=== PATIENT | female | born 1950 | race Caucasian/White ===

== ENCOUNTER 2016-03-02 | Outpatient (CLI) | END 2016-03-02 15:46 | disposition critical access hospital (66) | CPT/HCPCS: A0425; A0429 ==

== ENCOUNTER 2016-03-02 15:49 | Inpatient (IN) | payer MEDICARE, MEDICAID ==
[2016-03-02] MEDS ORDERED: IOPAMIDOL-300 100 ML VIAL IVP ONE (17:58)
[2016-03-02] MEDS ORDERED: VANCOMYCIN INJ 1 GM in SODIUM CHLORIDE 0.9% 250 ML IV STA (18:17)
[2016-03-02] MEDS ORDERED: PIPERACILLIN/TAZOBACTAM 4.5 GM in SODIUM CHLORIDE 0.9% MINIBAG 100 ML IV STA (18:17)
[2016-03-02] MEDS ORDERED: SODIUM CHLORIDE 0.9% 250 ML IV ONE (19:25)
[2016-03-02] MEDS ORDERED: VANCOMYCIN 1 GM VIAL ONE (19:25)
[2016-03-02] MEDS ORDERED: hydrOXYzine PAMOATE 25 MG CAPSULE PO PRN (20:52)
[2016-03-02] MEDS ORDERED: SODIUM CHLORIDE 0.9% 1,000 ML IV SCH ×2 (20:52→23:07)
[2016-03-02] MEDS ORDERED: FUROSEMIDE 20 MG TABLET PO PRN (20:52)
[2016-03-02] MEDS ORDERED: ONDANSETRON 4 MG/2 ML VIAL IVP PRN (20:52)
[2016-03-02] MEDS ORDERED: risperiDONE 1 MG/ML SOLUTION PO SCH (21:00)
[2016-03-02] MEDS ORDERED: DABIGATRAN 75 MG CAPSULE PO SCH (21:00)
[2016-03-02] MEDS: PANTOPRAZOLE 40 MG TABLET PO SCH (21:49)
[2016-03-02] MEDS: traMADol 50 MG TABLET PO PRN (21:50)
[2016-03-02] MEDS: MIRTAZAPINE 15 MG TABLET PO SCH ×2 (21:51→23:47)
[2016-03-02] MEDS ORDERED: BENZONATATE 100 MG CAPSULE PO PRN (21:52)
[2016-03-02] MEDS: FAMOTIDINE 20 MG TABLET PO SCH (21:52)
[2016-03-02] MEDS ORDERED: guaiFENesin/DEXTROMETHORPHAN 10 ML UDC PO PRN (21:52)
[2016-03-02] MEDS ORDERED: LEVALBUTEROL 1.25 MG INH PRN (21:52)
[2016-03-02] MEDS ORDERED: PIPERACILLIN/TAZOBACTAM 4.5 GM in SODIUM CHLORIDE 0.9% MINIBAG 100 ML IV SCH (22:00)
[2016-03-02] MEDS: SODIUM CHLORIDE FLUSH 0.9% 10 ML SYRINGE IVP SCH (23:46)
[2016-03-03] MEDS: RIVAROXABAN 15 MG TABLET PO SCH ×2 (00:08→17:26)
[2016-03-03] MEDS: risperiDONE 1 MG TABLET PO SCH ×2 (01:28→20:17)
[2016-03-03] MEDS: PIPERACILLIN/TAZOBACTAM 4.5 GM in SODIUM CHLORIDE 0.9% MINIBAG 100 ML IV SCH ×3 (03:33→19:18)
[2016-03-03] MEDS: SODIUM CHLORIDE FLUSH 0.9% 10 ML SYRINGE IVP SCH ×3 (05:39→22:42)
[2016-03-03] MEDS: traMADol 50 MG TABLET PO PRN ×2 (05:42→13:16)
[2016-03-03] MEDS: METOPROLOL SUCCINATE 25 MG TABLET PO SCH (08:29)
[2016-03-03] MEDS: PANTOPRAZOLE 40 MG TABLET PO SCH ×2 (08:29→20:17)
[2016-03-03] MEDS: FAMOTIDINE 20 MG TABLET PO SCH (08:29)
[2016-03-03] MEDS: SACCHAROMYCES BOULARDII 250 MG CAPSULE PO SCH ×2 (08:29→17:26)
[2016-03-03] MEDS: POLYETHYLENE GLYCOL 3350 17 GM PACKET PO SCH (08:31)
[2016-03-03] MEDS: DULoxetine 30 MG CAPSULE PO SCH (08:31)
[2016-03-03] MEDS: FORMOTEROL FUMARATE NEB 20 MCG/2 ML INH SCH ×2 (09:03→17:22)
[2016-03-03] MEDS: IPRATROPIUM/ALBUTEROL 3 ML NEB INH PRN ×2 (09:03→17:22)
[2016-03-03] MEDS: BUDESONIDE 0.5 MG/2 ML NEB INH SCH ×2 (09:04→17:22)
[2016-03-03] MEDS ORDERED: VANCOMYCIN PER PHARMACY 1 GM in SODIUM CHLORIDE 0.9% 250 ML IV SCH (19:00)
[2016-03-03] MEDS: VANCOMYCIN INJ 1 GM in SODIUM CHLORIDE 0.9% 250 ML IV SCH (19:14)
[2016-03-03] MEDS: SODIUM CHLORIDE FLUSH 0.9% 10 ML SYRINGE IVP PRN (19:17)
[2016-03-03] MEDS ORDERED: MIN OIL/DIMETHICON/COCONUT OIL 92 GM TUBE TOP PRN (20:14)
[2016-03-03] MEDS: MIRTAZAPINE 15 MG TABLET PO SCH (20:17)
[2016-03-04] MEDS: SODIUM CHLORIDE FLUSH 0.9% 10 ML SYRINGE IVP PRN ×2 (03:03→10:15)
[2016-03-04] MEDS: PIPERACILLIN/TAZOBACTAM 4.5 GM in SODIUM CHLORIDE 0.9% MINIBAG 100 ML IV SCH ×3 (03:03→18:56)
[2016-03-04] MEDS: SODIUM CHLORIDE FLUSH 0.9% 10 ML SYRINGE IVP SCH ×3 (08:13→23:03)
[2016-03-04] MEDS: SACCHAROMYCES BOULARDII 250 MG CAPSULE PO SCH ×2 (08:18→18:42)
[2016-03-04] MEDS: FAMOTIDINE 20 MG TABLET PO SCH (08:18)
[2016-03-04] MEDS: DULoxetine 30 MG CAPSULE PO SCH (08:18)
[2016-03-04] MEDS: traMADol 50 MG TABLET PO PRN ×3 (08:19→20:21)
[2016-03-04] MEDS: PANTOPRAZOLE 40 MG TABLET PO SCH ×2 (08:19→20:21)
[2016-03-04] MEDS: POLYETHYLENE GLYCOL 3350 17 GM PACKET PO SCH (08:20)
[2016-03-04] MEDS: METOPROLOL SUCCINATE 25 MG TABLET PO SCH (08:20)
[2016-03-04] MEDS: IPRATROPIUM/ALBUTEROL 3 ML NEB INH PRN (09:30)
[2016-03-04] MEDS: BUDESONIDE 0.5 MG/2 ML NEB INH SCH ×2 (09:30→13:45)
[2016-03-04] MEDS ORDERED: clonazePAM 0.5 MG TABLET PO PRN (09:59)
[2016-03-04] MEDS: HYDROXYUREA 500 MG CAPSULE PO SCH (10:10)
[2016-03-04] MEDS: clonazePAM 0.5 MG TABLET PO PRN ×2 (10:11→20:22)
[2016-03-04] MEDS: FORMOTEROL FUMARATE NEB 20 MCG/2 ML INH SCH ×2 (13:45→20:45)
[2016-03-04] MEDS: VANCOMYCIN INJ 1 GM in SODIUM CHLORIDE 0.9% 250 ML IV SCH (18:42)
[2016-03-04] MEDS: RIVAROXABAN 15 MG TABLET PO SCH (18:43)
[2016-03-04] MEDS: risperiDONE 1 MG TABLET PO SCH (20:21)
[2016-03-04] MEDS: MIRTAZAPINE 15 MG TABLET PO SCH (20:21)
[2016-03-05] MEDS: PIPERACILLIN/TAZOBACTAM 4.5 GM in SODIUM CHLORIDE 0.9% MINIBAG 100 ML IV SCH ×3 (03:18→22:19)
[2016-03-05] MEDS: SODIUM CHLORIDE FLUSH 0.9% 10 ML SYRINGE IVP SCH ×3 (05:48→20:35)
[2016-03-05] MEDS: IPRATROPIUM/ALBUTEROL 3 ML NEB INH PRN ×3 (07:15→15:20)
[2016-03-05] MEDS: FORMOTEROL FUMARATE NEB 20 MCG/2 ML INH SCH ×2 (07:15→19:55)
[2016-03-05] MEDS: BUDESONIDE 0.5 MG/2 ML NEB INH SCH ×2 (07:15→19:55)
[2016-03-05] MEDS: PANTOPRAZOLE 40 MG TABLET PO SCH ×2 (08:47→20:30)
[2016-03-05] MEDS: HYDROXYUREA 500 MG CAPSULE PO SCH (08:47)
[2016-03-05] MEDS: traMADol 50 MG TABLET PO PRN ×4 (08:47→21:18)
[2016-03-05] MEDS: SACCHAROMYCES BOULARDII 250 MG CAPSULE PO SCH ×2 (08:47→16:24)
[2016-03-05] MEDS: POLYETHYLENE GLYCOL 3350 17 GM PACKET PO SCH (08:47)
[2016-03-05] MEDS: FAMOTIDINE 20 MG TABLET PO SCH (08:47)
[2016-03-05] MEDS: DULoxetine 30 MG CAPSULE PO SCH (08:48)
[2016-03-05] MEDS: METOPROLOL SUCCINATE 25 MG TABLET PO SCH (08:48)
[2016-03-05] MEDS: clonazePAM 0.5 MG TABLET PO PRN ×2 (08:58→18:12)
[2016-03-05] MEDS: SODIUM CHLORIDE FLUSH 0.9% 10 ML SYRINGE IVP PRN (10:31)
[2016-03-05] MEDS: ACETAMINOPHEN 325 MG TABLET PO PRN ×2 (11:34→19:54)
[2016-03-05] MEDS: RIVAROXABAN 15 MG TABLET PO SCH (16:24)
[2016-03-05] MEDS ORDERED: VANCOMYCIN 1 GM VIAL ONE (20:15)
[2016-03-05] MEDS ORDERED: SODIUM CHLORIDE 0.9% 250 ML IV ONE (20:16)
[2016-03-05] MEDS: VANCOMYCIN INJ 1 GM in SODIUM CHLORIDE 0.9% 250 ML IV SCH (20:22)
[2016-03-05] MEDS: MIRTAZAPINE 15 MG TABLET PO SCH (20:30)
[2016-03-05] MEDS: risperiDONE 1 MG TABLET PO SCH (20:30)
[2016-03-06] MEDS: PIPERACILLIN/TAZOBACTAM 4.5 GM in SODIUM CHLORIDE 0.9% MINIBAG 100 ML IV SCH (05:59)
[2016-03-06] MEDS: SODIUM CHLORIDE FLUSH 0.9% 10 ML SYRINGE IVP SCH (05:59)
[2016-03-06] MEDS: VANCOMYCIN INJ 1 GM in SODIUM CHLORIDE 0.9% 250 ML IV SCH (09:00)
[2016-03-06] MEDS: POLYETHYLENE GLYCOL 3350 17 GM PACKET PO SCH (09:00)
[2016-03-06] MEDS: SACCHAROMYCES BOULARDII 250 MG CAPSULE PO SCH (09:01)
[2016-03-06] MEDS: DULoxetine 30 MG CAPSULE PO SCH (09:01)
[2016-03-06] MEDS: FAMOTIDINE 20 MG TABLET PO SCH (09:01)
[2016-03-06] MEDS: PANTOPRAZOLE 40 MG TABLET PO SCH (09:01)
[2016-03-06] MEDS: HYDROXYUREA 500 MG CAPSULE PO SCH (09:01)
[2016-03-06] MEDS: METOPROLOL SUCCINATE 25 MG TABLET PO SCH (09:01)
[2016-03-06] MEDS: clonazePAM 0.5 MG TABLET PO PRN ×2 (09:05→10:35)
[2016-03-06] MEDS: traMADol 50 MG TABLET PO PRN ×2 (09:05→09:50)
[2016-03-06] MEDS: BUDESONIDE 0.5 MG/2 ML NEB INH SCH (09:15)
[2016-03-06] MEDS: IPRATROPIUM/ALBUTEROL 3 ML NEB INH PRN (09:15)
[2016-03-06] MEDS: FORMOTEROL FUMARATE NEB 20 MCG/2 ML INH SCH (09:15)
[2016-03-06] MEDS ORDERED: PIPERACILLIN/TAZOBACTAM 4.5 GM in SODIUM CHLORIDE 0.9% MINIBAG 100 ML IV SCH (12:00)
== END 2016-03-06 13:33 | disposition home health service (06) | DRG 193 ==
DX: J18.9 Pneumonia, unspecified organism (principal); N39.0 Urinary tract infection, site not specified; R09.02 Hypoxemia; J96.21 Acute and chronic respiratory failure with hypoxia; I27.82 Chronic pulmonary embolism; D68.59 Other primary thrombophilia; F32.9 Major depressive disorder, single episode, unspecified; Y95 Nosocomial condition; Z91.14 Patient's other noncompliance with medication regimen; D47.3 Essential (hemorrhagic) thrombocythemia; D50.9 Iron deficiency anemia, unspecified; I12.9 Hypertensive chronic kidney disease with stage 1 through stage 4 chronic kidney disease, or unspecified chronic kidney disease; N18.3 Chronic kidney disease, stage 3 (moderate); J44.9 Chronic obstructive pulmonary disease, unspecified; K21.9 Gastro-esophageal reflux disease without esophagitis; F31.9 Bipolar disorder, unspecified; F41.9 Anxiety disorder, unspecified; Z86.718 Personal history of other venous thrombosis and embolism; Z79.01 Long term (current) use of anticoagulants; Z99.81 Dependence on supplemental oxygen; Z86.73 Personal history of transient ischemic attack (TIA), and cerebral infarction without residual deficits; Z87.891 Personal history of nicotine dependence

== ENCOUNTER 2016-04-09 17:58 | Emergency (ER) | payer MEDICARE, MEDICAID ==
[2016-04-09] MEDS ORDERED: traMADol 50 MG TABLET PO STA (18:10)
[2016-04-09] MEDS ORDERED: traMADol 50 MG TABLET PO ONE (18:21)
== END 2016-04-09 21:18 | disposition home or self-care (01) ==
DX: I82.5Y3 Chronic embolism and thrombosis of unspecified deep veins of proximal lower extremity, bilateral (principal); Z86.718 Personal history of other venous thrombosis and embolism; Z86.711 Personal history of pulmonary embolism
CPT/HCPCS: 36415; 80053; 83690; 85025; 93970; 99283; 99284; A9270

== ENCOUNTER 2016-04-27 | Emergency (ER) | payer MEDICARE, MEDICAID | END 2016-04-27 12:47 | disposition home or self-care (01) ==

== ENCOUNTER 2016-06-14 10:31 | Inpatient (IN) | payer MEDICARE, MEDICAID ==
[2016-06-14] MEDS ORDERED: IPRATROPIUM/ALBUTEROL 3 ML NEB INH STA (12:15)
[2016-06-14] MEDS ORDERED: predniSONE 20 MG TABLET PO STA (12:16)
[2016-06-14] MEDS ORDERED: IPRATROPIUM/ALBUTEROL 3 ML NEB INH ONE (12:23)
[2016-06-14] MEDS ORDERED: predniSONE 20 MG TABLET ONE (13:08)
[2016-06-14] MEDS ORDERED: ASPIRIN CHEW 81 MG TABLET PO STA (13:10)
[2016-06-14] MEDS ORDERED: ASPIRIN CHEW 81 MG TABLET ONE (13:11)
[2016-06-14] MEDS ORDERED: SODIUM CHLORIDE FLUSH 0.9% 10 ML SYRINGE IVP PRN (15:17)
[2016-06-14] MEDS ORDERED: IPRATROPIUM/ALBUTEROL 3 ML NEB INH PRN (15:25)
[2016-06-14] MEDS ORDERED: AZITHROMYCIN 250 MG TABLET PO ONE (17:00)
[2016-06-14] MEDS: ALPRAZolam 0.25 MG TABLET PO PRN ×2 (17:08→21:06)
[2016-06-14] MEDS: SODIUM CHLORIDE 0.9% 1,000 ML IV SCH (17:08)
[2016-06-14] MEDS: traMADol 50 MG TABLET PO PRN ×2 (17:08→21:06)
[2016-06-14] MEDS: busPIRone 5 MG TABLET PO SCH (20:07)
[2016-06-14] MEDS: IPRATROPIUM/ALBUTEROL 3 ML NEB INH SCH ×2 (20:10→22:40)
[2016-06-14] MEDS: BUDESONIDE 0.5 MG/2 ML NEB INH SCH (20:10)
[2016-06-14] MEDS ORDERED: MIRTAZAPINE 15 MG TABLET PO SCH (21:00)
[2016-06-14] MEDS ORDERED: risperiDONE 0.25 MG TABLET PO SCH (21:00)
[2016-06-14] MEDS: SUCRALFATE 1 GM/10 ML UDC PO SCH (21:06)
[2016-06-14] MEDS: SODIUM CHLORIDE FLUSH 0.9% 10 ML SYRINGE IVP SCH (21:10)
[2016-06-15] MEDS: IPRATROPIUM/ALBUTEROL 3 ML NEB INH SCH ×2 (04:50→10:11)
[2016-06-15] MEDS: ALPRAZolam 0.25 MG TABLET PO PRN (05:04)
[2016-06-15] MEDS: traMADol 50 MG TABLET PO PRN ×3 (05:04→17:20)
[2016-06-15] MEDS: SUCRALFATE 1 GM/10 ML UDC PO SCH ×3 (06:14→15:47)
[2016-06-15] MEDS: SODIUM CHLORIDE FLUSH 0.9% 10 ML SYRINGE IVP SCH ×2 (06:16→14:30)
[2016-06-15] MEDS: SODIUM CHLORIDE 0.9% 1,000 ML IV SCH (06:35)
[2016-06-15] MEDS ORDERED: SODIUM CHLORIDE 0.9% 1,000 ML IV SCH (08:00)
[2016-06-15] MEDS: busPIRone 5 MG TABLET PO SCH (08:56)
[2016-06-15] MEDS ORDERED: RIVAROXABAN 10 MG TABLET PO SCH (09:00)
[2016-06-15] MEDS ORDERED: HYDROXYUREA 500 MG CAPSULE PO SCH (09:00)
[2016-06-15] MEDS ORDERED: METOPROLOL SUCCINATE 25 MG TABLET PO SCH (09:00)
[2016-06-15] MEDS ORDERED: POLYETHYLENE GLYCOL 3350 17 GM PACKET PO SCH (09:00)
[2016-06-15] MEDS ORDERED: DULoxetine 30 MG CAPSULE PO SCH (09:00)
[2016-06-15] MEDS: clonazePAM 0.5 MG TABLET PO PRN ×2 (09:22→15:46)
[2016-06-15] MEDS: BUDESONIDE 0.5 MG/2 ML NEB INH SCH (10:10)
[2016-06-15] MEDS ORDERED: AZITHROMYCIN 250 MG TABLET PO SCH (16:46)
== END 2016-06-15 17:35 | disposition home or self-care (01) | DRG 192 ==
DX: J44.1 Chronic obstructive pulmonary disease with (acute) exacerbation (principal); R07.9 Chest pain, unspecified; R06.02 Shortness of breath; R06.2 Wheezing; R94.31 Abnormal electrocardiogram [ECG] [EKG]; J44.9 Chronic obstructive pulmonary disease, unspecified; I10 Essential (primary) hypertension; E78.5 Hyperlipidemia, unspecified; R07.89 Other chest pain; Z87.01 Personal history of pneumonia (recurrent); D47.3 Essential (hemorrhagic) thrombocythemia; F41.9 Anxiety disorder, unspecified; I12.9 Hypertensive chronic kidney disease with stage 1 through stage 4 chronic kidney disease, or unspecified chronic kidney disease; N18.3 Chronic kidney disease, stage 3 (moderate); G89.29 Other chronic pain; I27.2 Other secondary pulmonary hypertension; F31.9 Bipolar disorder, unspecified; K21.9 Gastro-esophageal reflux disease without esophagitis; Z87.891 Personal history of nicotine dependence; Z86.718 Personal history of other venous thrombosis and embolism; Z79.01 Long term (current) use of anticoagulants; Z86.711 Personal history of pulmonary embolism; Z86.73 Personal history of transient ischemic attack (TIA), and cerebral infarction without residual deficits; Z79.899 Other long term (current) drug therapy; Z98.1 Arthrodesis status; Z79.891 Long term (current) use of opiate analgesic

== ENCOUNTER 2016-07-19 11:19 | Emergency (ER) | payer MEDICARE, MEDICAID ==
[2016-07-19] MEDS ORDERED: PHENAZOPYRIDINE 100 MG TABLET PO STA (12:54)
[2016-07-19] MEDS ORDERED: PHENAZOPYRIDINE 100 MG TABLET PO ONE (12:56)
--- NOTE | 2016-07-19 12:56 | ED Physician Documentation ---
History of Present Illness - Stated complaint Stated Complaint: FEMALE - Chief complaint Chief Complaint: General - History obtained from History obtained from: Patient - History of Present Illness Timing: Other (One week worth of urinary frequency, today more acutely with suprapubic and vaginal pain, but no flank pain, fevers or nausea.) Review of Systems Constitutional: denies: Fever, Chills Cardiac: denies: Chest pain / pressure, Palpitations Respiratory: denies: Dyspnea, Cough GI: denies: Abdominal Pain, Nausea, Diarrhea PD PAST MEDICAL HISTORY - Past Medical History Cardiovascular: Deep vein thrombosis, Pulmonary embolism Respiratory: Pneumonia, Shortness of breath, Other Neuro: Headache/migraine, Peripheral neuropathy, Other Endocrine/Autoimmune: None GI: GERD DIRECTOR ORACLE RETAIL: None : None HEENT: None Psych: Depression, Anxiety Musculoskeletal: Scoliosis Derm: None Other Past Medical History: Has a thromocythemia - Past Surgical History Past Surgical History: Yes Ortho: Spine surgery /DIRECTOR ORACLE RETAIL: section, Hysterectomy - Present Medications Home Medications: Ambulatory Orders Medication Instructions Recorded Confirmed Clonazepam [Klonopin] 0.5 - 1 mg PO BID PRN 10/01/12 07/04/16 Mirtazapine [Remeron] 15 mg PO QPM 05/19/14 07/04/16 traMADol [Ultram] 50 mg PO QID PRN 08/17/15 07/04/16 Omeprazole 20 mg BID 12/30/15 07/04/16 Metoprolol Succinate 25 mg PO DAILY 01/13/16 07/04/16 Albuterol Sulf [Ventolin Hfa 2 puffs INH Q4H PRN 03/03/16 07/04/16 Inhaler] Budesonide/Formoterol Fumarate 1 puffs INH BID PRN 03/03/16 07/04/16 [Symbicort 160-4.5 Mcg Inhaler] DULoxetine [Cymbalta] 30 mg PO DAILY 03/03/16 07/04/16 Hydroxyurea 500 mg PO DAILY 03/03/16 07/04/16 Hydroxyzine Pamoate 50 mg PO DAILY PRN 03/03/16 07/04/16 Rivaroxaban [Xarelto] 20 mg PO DAILY 03/03/16 07/04/16 busPIRone [Buspar] 15 mg PO BID 03/03/16 07/04/16 risperiDONE [RisperDAL] 1 mg PO QPM 03/03/16 07/04/16 Furosemide [Lasix] 20 mg PO DAILY 06/14/16 07/04/16 Sucralfate 1 gm PO ACHS 06/14/16 07/04/16 tiZANidine [Zanaflex] 8 mg PO QPM 06/14/16 07/04/16 Azithromycin 250 mg PO DAILY #3 tablet 06/15/16 07/04/16 Nitrofurantoin Monohyd/M-Cryst 1 tab PO BID 5 Days 07/19/16 [Macrobid 100 mg Capsule] Phenazopyridine HCl [Pyridium] 200 mg PO TID #6 tablet 07/19/16 - Allergies Allergies/Adverse Reactions: Allergies Allergy/AdvReac Type Severity Reaction Status Date / Time diphenhydramine HCl * Allergy Mild Rash Verified 06/14/16 10:41 [From Benadryl] morphine Allergy Mild Nausea Verified 06/14/16 10:41 iron dextran complex Allergy Unknown Verified 06/14/16 10:41 - Social History Does the pt smoke?: No Smoking Status: Never smoker Does the pt drink ETOH?: No Does the pt have substance abuse?: No - Immunizations Immunizations are current?: Yes - POLST Patient has POLST: No POLST Status: Full Code PD ED PE NORMAL - Vitals Vital signs reviewed: Yes - General General: Alert and oriented X 3, No acute distress - Abdomen Abdomen: Soft, Non tender - Back Back: No CVA TTP, No spinal TTP - Neuro Neuro: Alert and oriented X 3, Normal speech Results - Vitals Vitals: Vital Signs - 24 hr 07/19/16 11:22 Temperature 36.4 C L Heart Rate 76 Respiratory 16 Rate Blood Pressure 159/96 H O2 Saturation 93 Oxygen O2 Source [Without Activity] 3L O2 via NC O2 Source Room air - Labs Labs: Laboratory Tests 07/19/16 11:50 Urine Color YELLOW Urine Clarity CLEAR Urine pH 6.5 Ur Specific [place] 1.015 Urine Protein NEGATIVE Urine Glucose (UA) NEGATIVE Urine Ketones NEGATIVE Urine Occult Blood TRACE-INTA Urine Nitrite NEGATIVE Urine Bilirubin NEGATIVE Urine Urobilinogen 0.2 (NORMAL) Ur Leukocyte Esterase SMALL H Urine RBC 0-5 Urine WBC 4-5 Ur Squamous Epith Cells NONE SEEN Urine Bacteria Rare Ur Microscopic Review INDICATED Urine Culture Comments INDICATED Departure - Departure Disposition: 01 Home, Self Care Clinical Impression: Urinary tract infection Qualifiers: Urinary tract infection type: acute cystitis Hematuria presence: without hematuria Qualified Code(s): N30.00 - Acute cystitis without hematuria Condition: Good Record reviewed to determine appropriate education?: Yes Instructions: ED UTI Cystitis Female Prescriptions: Nitrofurantoin Monohyd/M-Cryst [Macrobid 100 mg Capsule] 1 tab PO BID 5 Days Phenazopyridine HCl [Pyridium] 200 mg PO TID #6 tablet Comments: Your blood pressure was elevated today on check in to the emergency department. This does not mean that you have hypertension, it is a common phenomenon to check into the emergency department and have elevated blood pressure. I recommend that you see your primary care physician within the week to have it rechecked when you're feeling better. As we discussed we will culture your urine, this results should be done in 48- 72 hours. If an antibiotic change is necessary we will call you. Return if worse in the meantime, especially if you develop flank pain or fevers or cannot keep down the medication.
[2016-07-19 13:02] LABS: BILIRUBIN,URINE NEGATIVE (NEGATIVE); PH,URINE 6.5 PH (5.0-7.5)
[2016-07-19 13:16] LABS: UA w/ MICROSCOPIC CHARGE YES
[2016-07-19 13:17] LABS: UR CULTURE IF IND INDICATED
[2016-07-19] MEDS ORDERED: NITROFURANTOIN MACRO 100 MG CAPSULE PO STA (13:22)
[2016-07-19] MEDS ORDERED: NITROFURANTOIN MACRO 100 MG CAPSULE PO ONE (13:35)
[2016-07-19 13:38] VITALS: BP 107/81
== END 2016-07-19 13:40 | disposition home or self-care (01) ==
LOC: ED 11:19
DX: N30.00 Acute cystitis without hematuria (principal); R03.0 Elevated blood-pressure reading, without diagnosis of hypertension; Z86.711 Personal history of pulmonary embolism; Z86.718 Personal history of other venous thrombosis and embolism; Z79.01 Long term (current) use of anticoagulants; G62.9 Polyneuropathy, unspecified; K21.9 Gastro-esophageal reflux disease without esophagitis; D47.3 Essential (hemorrhagic) thrombocythemia
CPT/HCPCS: 81001; 87086; 99283; A9270; 81003

== ENCOUNTER 2016-09-14 11:29 | Emergency (ER) | payer MEDICARE, MEDICAID ==
[2016-09-14 11:37] VITALS: BP 125/85
[2016-09-14 11:58] LABS: BILIRUBIN,URINE NEGATIVE (NEGATIVE)
[2016-09-14 12:01] LABS: UA w/ MICROSCOPIC CHARGE YES
[2016-09-14 12:06] LABS: UR CULTURE IF IND NOT INDICATED
--- NOTE | 2016-09-14 12:47 | ED Physician Documentation ---
History of Present Illness - Stated complaint Stated Complaint: FEMALE - Chief complaint Chief Complaint: Abd Pain - Additonal information Additional information: hx from pt 66 f dysuria and freq txed for UTI in June sx are back no fever NV flank pain Review of Systems Constitutional: denies: Fever, Chills Cardiac: denies: Chest pain / pressure Respiratory: denies: Dyspnea GI: denies: Abdominal Pain : reports: Dysuria, Frequency Musculoskeletal: denies: Back pain PD PAST MEDICAL HISTORY - Past Medical History Cardiovascular: Deep vein thrombosis, Pulmonary embolism Respiratory: Pneumonia, Shortness of breath, Other Neuro: Headache/migraine, Peripheral neuropathy, Other Endocrine/Autoimmune: None GI: GERD MEDICAL CODER: None : None HEENT: None Psych: Depression, Anxiety Musculoskeletal: Scoliosis Derm: None - Past Surgical History Past Surgical History: Yes Ortho: Spine surgery /MEDICAL CODER: section, Hysterectomy - Present Medications Home Medications: Ambulatory Orders Medication Instructions Recorded Confirmed Clonazepam [Klonopin] 0.5 - 1 mg PO BID PRN 10/01/12 09/14/16 Mirtazapine [Remeron] 15 mg PO QPM 05/19/14 09/14/16 traMADol [Ultram] 50 mg PO QID PRN 08/17/15 09/14/16 Omeprazole 20 mg BID 12/30/15 09/14/16 Metoprolol Succinate 25 mg PO DAILY 01/13/16 09/14/16 Albuterol Sulf [Ventolin Hfa 2 puffs INH Q4H PRN 03/03/16 09/14/16 Inhaler] Budesonide/Formoterol Fumarate 1 puffs INH BID PRN 03/03/16 09/14/16 [Symbicort 160-4.5 Mcg Inhaler] DULoxetine [Cymbalta] 30 mg PO DAILY 03/03/16 09/14/16 Hydroxyurea 500 mg PO DAILY 03/03/16 09/14/16 Hydroxyzine Pamoate 50 mg PO DAILY PRN 03/03/16 09/14/16 Rivaroxaban [Xarelto] 20 mg PO DAILY 03/03/16 09/14/16 busPIRone [Buspar] 15 mg PO BID 03/03/16 09/14/16 risperiDONE [RisperDAL] 1 mg PO QPM 03/03/16 09/14/16 Furosemide [Lasix] 20 mg PO DAILY 06/14/16 09/14/16 Sucralfate 1 gm PO ACHS 06/14/16 09/14/16 tiZANidine [Zanaflex] 8 mg PO QPM 06/14/16 09/14/16 Cephalexin [Keflex] 500 mg PO Q6H #28 capsule 09/14/16 Phenazopyridine [Pyridium] 100 mg PO Q8H PRN #9 tablet 09/14/16 - Allergies Allergies/Adverse Reactions: Allergies Allergy/AdvReac Type Severity Reaction Status Date / Time diphenhydramine HCl * Allergy Mild Rash Verified 09/14/16 11:53 [From Benadryl] morphine Allergy Mild Nausea Verified 09/14/16 11:53 iron dextran complex Allergy Unknown Verified 09/14/16 11:53 - Social History Does the pt smoke?: No Smoking Status: Never smoker Does the pt drink ETOH?: No Does the pt have substance abuse?: No - Immunizations Immunizations are current?: Yes - POLST Patient has POLST: No POLST Status: Full Code PD ED PE NORMAL - Vitals Vital signs reviewed: Yes - General General: Alert and oriented X 3 - Cardiac Cardiac: RRR - Respiratory Respiratory: No respiratory distress, Clear bilaterally - Abdomen Abdomen: Soft, Other (mild suprapubic TTP) - Back Back: No CVA TTP - Derm Derm: Normal color - Neuro Neuro: Alert and oriented X 3 Results - Vitals Vitals: Vital Signs - 24 hr 09/14/16 11:33 Temperature 36.5 C Heart Rate 87 Respiratory 16 Rate Blood Pressure 125/85 H O2 Saturation 95 Oxygen O2 Source [Without Activity] 3L O2 via NC O2 Source Room air - Labs Labs: Laboratory Tests 09/14/16 11:50 Urine Color YELLOW Urine Clarity CLEAR Urine pH 6.0 Ur Specific [place] 1.015 Urine Protein NEGATIVE Urine Glucose (UA) NEGATIVE Urine Ketones NEGATIVE Urine Occult Blood NEGATIVE Urine Nitrite NEGATIVE Urine Bilirubin NEGATIVE Urine Urobilinogen 0.2 (NORMAL) Ur Leukocyte Esterase SMALL H Urine RBC 0-5 Urine WBC 6-10 H Ur Epithelial Cells RARE Transitional Ur Squamous Epith Cells MOD Squamous H Urine Bacteria Few Urine Mucus Few Strands Ur Microscopic Review INDICATED Urine Culture Comments NOT INDICATED PD MEDICAL DECISION MAKING - ED course ED course: urine is not a perfect clean catch but pt has classic sx and UA is + leuk est WBC and bacteria so will tx Departure - Departure Disposition: 01 Home, Self Care Condition: Good Instructions: ED UTI Cystitis Female Follow-Up: Winter Rosado MD [Primary Care Provider] - (for a repeat UA in 2 weeks - if sympotms persist discuss a referral to urology) Prescriptions: Cephalexin [Keflex] 500 mg PO Q6H #28 capsule Phenazopyridine [Pyridium] 100 mg PO Q8H PRN #9 tablet PRN Reason: painful urination
== END 2016-09-14 12:51 | disposition home or self-care (01) ==
LOC: ED 11:29
DX: N39.0 Urinary tract infection, site not specified (principal); K21.9 Gastro-esophageal reflux disease without esophagitis; G62.9 Polyneuropathy, unspecified; Z86.711 Personal history of pulmonary embolism; Z86.718 Personal history of other venous thrombosis and embolism; Z79.01 Long term (current) use of anticoagulants
CPT/HCPCS: 81001; 81003; 87086; 99283

== ENCOUNTER 2016-10-23 00:38 | Outpatient (CLI) | payer MEDICARE, MEDICAID | END 2016-10-23 00:39 | disposition critical access hospital (66) | LOC: EMS 00:38 | PROVIDERS: ATTEND Surgery | DX: R11.10 Vomiting, unspecified (principal); R19.7 Diarrhea, unspecified | CPT/HCPCS: A0425; A0429 ==

== ENCOUNTER 2016-10-23 00:44 | Emergency (ER) | payer MEDICARE, MEDICAID ==
--- NOTE | 2016-10-23 00:55 | ED Physician Documentation ---
History of Present Illness - Stated complaint Stated Complaint: N/V/ANXIETY/MEDS - Chief complaint Chief Complaint: General - History obtained from History obtained from: Patient, EMS - History of Present Illness Timing: How many days ago (2) Pain level max: 0 Pain level now: 0 - Additonal information Additional information: Patient is a 66-year-old female who states that she ran out of her Klonopin 3 days ago. has been feeling very anxious since that time. is supposed to receive her new prescription of Klonopin in the morning and the pills are ready at [facility]. has been vomiting at home. Has not taken anything for the nausea or vomiting. Denies any chest pain, shortness of breath , fevers, head injury. Review of Systems Constitutional: denies: Fever, Chills Respiratory: denies: Cough GI: reports: Nausea, Vomiting. denies: Abdominal Pain, Diarrhea Skin: denies: Rash Musculoskeletal: denies: Neck pain, Back pain Neurologic: denies: Focal weakness, Numbness, Headache Psychiatric: reports: Anxiety. denies: Depressed, Suicidal, Homicidal, Hallucinations, Delusions PD PAST MEDICAL HISTORY - Past Medical History Cardiovascular: Deep vein thrombosis, Pulmonary embolism Respiratory: Pneumonia, Shortness of breath, Other Neuro: Headache/migraine, Peripheral neuropathy, Other Endocrine/Autoimmune: None GI: GERD SERVICE ORDER CLERK: None : None HEENT: None Psych: Depression, Anxiety Musculoskeletal: Scoliosis Derm: None - Past Surgical History Past Surgical History: Yes Ortho: Spine surgery /SERVICE ORDER CLERK: section, Hysterectomy - Present Medications Home Medications: Ambulatory Orders Medication Instructions Recorded Confirmed Clonazepam [Klonopin] 0.5 - 1 mg PO BID PRN 10/01/12 09/14/16 Mirtazapine [Remeron] 15 mg PO QPM 05/19/14 09/14/16 traMADol [Ultram] 50 mg PO QID PRN 08/17/15 09/14/16 Omeprazole 20 mg BID 12/30/15 09/14/16 Metoprolol Succinate 25 mg PO DAILY 01/13/16 09/14/16 Albuterol Sulf [Ventolin Hfa 2 puffs INH Q4H PRN 03/03/16 09/14/16 Inhaler] Budesonide/Formoterol Fumarate 1 puffs INH BID PRN 03/03/16 09/14/16 [Symbicort 160-4.5 Mcg Inhaler] DULoxetine [Cymbalta] 30 mg PO DAILY 03/03/16 09/14/16 Hydroxyurea 500 mg PO DAILY 03/03/16 09/14/16 Hydroxyzine Pamoate 50 mg PO DAILY PRN 03/03/16 09/14/16 Rivaroxaban [Xarelto] 20 mg PO DAILY 03/03/16 09/14/16 busPIRone [Buspar] 15 mg PO BID 03/03/16 09/14/16 risperiDONE [RisperDAL] 1 mg PO QPM 03/03/16 09/14/16 Furosemide [Lasix] 20 mg PO DAILY 06/14/16 09/14/16 Sucralfate 1 gm PO ACHS 06/14/16 09/14/16 tiZANidine [Zanaflex] 8 mg PO QPM 06/14/16 09/14/16 Cephalexin [Keflex] 500 mg PO Q6H #28 capsule 09/14/16 Phenazopyridine [Pyridium] 100 mg PO Q8H PRN #9 tablet 09/14/16 - Allergies Allergies/Adverse Reactions: Allergies Allergy/AdvReac Type Severity Reaction Status Date / Time diphenhydramine HCl * Allergy Mild Rash Verified 09/14/16 11:53 [From Benadryl] morphine Allergy Mild Nausea Verified 09/14/16 11:53 iron dextran complex Allergy Unknown Verified 09/14/16 11:53 - Social History Does the pt smoke?: No Smoking Status: Never smoker Does the pt drink ETOH?: No Does the pt have substance abuse?: No - Immunizations Immunizations are current?: Yes - POLST Patient has POLST: No POLST Status: Full Code PD ED PE NORMAL - Vitals Vital signs reviewed: Yes - General General: Alert and oriented X 3, No acute distress, Well developed/nourished - HEENT HEENT: PERRL, Moist mucous membranes - Neck Neck: Supple, no meningeal sign - Cardiac Cardiac: RRR, Strong equal pulses - Respiratory Respiratory: No respiratory distress, Clear bilaterally - Abdomen Abdomen: Soft, Non tender, Non distended - Derm Derm: Warm and dry - Extremities Extremities: No edema, No calf tenderness / cord - Neuro Neuro: Alert and oriented X 3 - Psych Psych: Normal mood, Normal affect Results - Vitals Vitals: Vital Signs - 24 hr 10/23/16 10/23/16 10/23/16 00:49 03:05 04:12 Temperature 36.5 C Heart Rate 116 H 109 H 91 Respiratory 16 16 18 Rate Blood Pressure 127/82 H 123/70 136/81 H O2 Saturation 96 100 100 Oxygen O2 Source [Without Activity] 3L O2 via NC O2 Source Room air - Labs Labs: Laboratory Tests 10/23/16 10/23/16 10/23/16 01:06 01:06 01:13 WBC 8.4 RBC 4.72 Hgb 15.4 Hct 47.1 H MCV 99.6 H MCH 32.5 H MCHC 32.6 RDW 15.6 H Plt Count 861 H* MPV 8.7 Neut # 7.9 H Lymph # 0.2 L [place] # 0.2 Eos # 0.0 Baso # 0.0 Absolute Nucleated RBC 0.01 Nucleated RBCs 0.1 Manual Slide Review Indicated Platelet Estimate INCREASED (>450,000) Platelet Morphology 1+ LARGE PLATELETS Sodium 135 Potassium 4.2 Chloride 98 L Carbon Dioxide 20 L Anion Gap 17.0 H BUN 23 H Creatinine 1.5 H Estimated GFR (MDRD) 35 L Glucose 178 H Calcium 9.9 Phosphorus 3.7 Magnesium 1.9 Total Bilirubin 1.3 H AST 29 ALT 17 Alkaline Phosphatase 76 Total Protein 8.9 H Albumin 4.8 Globulin 4.1 Albumin/Globulin Ratio 1.2 Lipase 37 Urine Color YELLOW Urine Clarity CLEAR Urine pH 6.0 Ur Specific [place] 1.025 Urine Protein 30 H Urine Glucose (UA) NEGATIVE Urine Ketones 40 H Urine Occult Blood TRACE-INTACT Urine Nitrite NEGATIVE Urine Bilirubin NEGATIVE Urine Urobilinogen 0.2 (NORMAL) Ur Leukocyte Esterase NEGATIVE Urine RBC 0-5 Urine WBC 0-3 Ur Squamous Epith Cells MOD Squamous H Urine Bacteria None Seen Ur Microscopic Review INDICATED Urine Culture Comments NOT INDICATED Urine Opiates Screen NEGATIVE Ur Oxycodone Screen NEGATIVE Urine Methadone Screen NEGATIVE Ur Propoxyphene Screen NEGATIVE Ur Barbiturates Screen NEGATIVE Ur Tricyclics Screen NEGATIVE Ur Phencyclidine Scrn NEGATIVE Ur Amphetamine Screen NEGATIVE U Methamphetamines Scrn NEGATIVE U Benzodiazepines Scrn NEGATIVE Urine Cocaine Screen NEGATIVE U Cannabinoids Screen NEGATIVE PD MEDICAL DECISION MAKING - ED course Complexity details: reviewed results, re-evaluated patient, considered differential, d/w patient ED course: Patient is a 66-year-old female who states that she is out of her Klonopin and had vomiting yesterday. Given Zofran here and is not vomiting. Tolerating p.o. without difficulty. Prior to discharge she states she is also out of her tramadol. She states she has both prescriptions ready at the pharmacy this morning I recommend she follow-up there to take her medication. I do not feel comfortable giving her medications in the emergency department given her prior history of very addictive behaviors with these medications. Patient will follow up in the pharmacy in the morning to restart on her medications. Her caregiver will take her to the pharmacy. This document was made in part using voice recognition software. While efforts are made to proofread this document, sound alike and grammatical errors may occur. Departure - Departure Disposition: 01 Home, Self Care Clinical Impression: Anxiety Condition: Good Instructions: ED Panic Attack Follow-Up: Winter Rosado MD [Primary Care Provider] - Within 3 Days Comments: You need to follow up with your doctor in the morning for a refill of your klonopin. Discharge Date/Time: 10/23/16 04:13
[2016-10-23 01:16] LABS: BASOPHILS % (AUTO) 0.2 %; HCT - HEMATOCRIT 47.1 % (37.0-47.0); HGB - HEMOGLOBIN 15.4 g/dL (12.0-16.0); LYMPHOCYTES # (AUTO) 0.2 10^3/uL (1.5-3.5); LYMPHOCYTES % (AUTO) 2.8 %; MEAN CORPUSCULAR HEMOGLOBIN 32.5 pg (27.0-31.0); MEAN CORPUSCULAR HGB CONC 32.6 g/dL (32.0-36.0); MEAN CORPUSCULAR VOLUME 99.6 fL (81.0-99.0); MEAN PLATELET VOLUME 8.7 fL (7.9-10.8); MONOCYTES # (AUTO) 0.2 10^3/uL (0.0-1.0); MONOCYTES % (AUTO) 2.7 %; NEUTROPHILS # (AUTO) 7.9 10^3/uL (1.5-6.6); NEUTROPHILS % (AUTO) 94.3 %; NUCLEATED RED BLOOD CELLS AUTO 0.1 /100WBC; RED BLOOD COUNT 4.72 10^6/uL (4.20-5.40); RED CELL DISTRIBUTION WIDTH 15.6 % (12.0-15.0); UNCORRECTED WHITE BLOOD COUNT 8.4 x10^3/uL; WHITE BLOOD COUNT 8.4 x10^3/uL (4.8-10.8)
[2016-10-23 01:26] LABS: ALBUMIN/GLOBULIN RATIO 1.2 (1.0-2.2); BILIRUBIN,TOTAL 1.3 mg/dL (0.2-1.0); CALCIUM 9.9 mg/dL (8.5-10.3); CREATININE 1.5 mg/dL (0.4-1.0); MAGNESIUM 1.9 mg/dL (1.7-2.8); PHOSPHORUS 3.7 mg/dL (2.5-4.6); POTASSIUM 4.2 mmol/L (3.5-5.0); TOTAL PROTEIN 8.9 g/dL (6.7-8.2)
[2016-10-23 01:39] LABS: PLATELET ESTIMATE, MANUAL INCREASED (>450,000) (NORMAL)
[2016-10-23 01:41] LABS: BILIRUBIN,URINE NEGATIVE (NEGATIVE); UA w/ MICROSCOPIC CHARGE YES; WBC,URINE 0-3 /HPF (0-5)
[2016-10-23 01:42] LABS: UR CULTURE IF IND NOT INDICATED
[2016-10-23] MEDS ORDERED: ONDANSETRON ODT 4 MG TABLET TL STA (02:13)
[2016-10-23] MEDS ORDERED: ONDANSETRON ODT 4 MG TABLET ONE (02:19)
[2016-10-23] MEDS ORDERED: PROMETHAZINE 25 MG TABLET PO STA (02:51)
[2016-10-23] MEDS ORDERED: PROMETHAZINE 25 MG TABLET ONE (03:06)
[2016-10-23] MEDS ORDERED: MAG HYDROX/AL HYDROX/SIMETH 30 ML UDC PO STA (03:12)
[2016-10-23] MEDS ORDERED: MAG HYDROX/AL HYDROX/SIMETH 30 ML UDC ONE (03:17)
[2016-10-23 04:13] VITALS: BP 136/81
== END 2016-10-23 04:13 | disposition home or self-care (01) ==
LOC: EDUNIT# → ED 00:44
DX: F41.9 Anxiety disorder, unspecified (principal); K21.9 Gastro-esophageal reflux disease without esophagitis; G62.9 Polyneuropathy, unspecified; Z86.711 Personal history of pulmonary embolism; Z86.718 Personal history of other venous thrombosis and embolism; Z79.01 Long term (current) use of anticoagulants
CPT/HCPCS: 36415; 80053; 80306; 81001; 83690; 83735; 84100; 85025; 99283; A9270; Q0162; Q0169; 81003; 87086

== ENCOUNTER 2016-11-04 14:04 | Emergency (ER) | payer MEDICARE, MEDICAID ==
[2016-11-04 14:37] LABS: BILIRUBIN,URINE NEGATIVE (NEGATIVE)
[2016-11-04 14:39] LABS: UA w/ MICROSCOPIC CHARGE YES
[2016-11-04 14:59] LABS: WBC,URINE >25 /HPF (0-5)
[2016-11-04 15:00] LABS: UR CULTURE IF IND INDICATED
[2016-11-04] MEDS ORDERED: PHENAZOPYRIDINE 100 MG TABLET PO STA (15:07)
[2016-11-04] MEDS ORDERED: SULFAMETH/TRIMETH DS 800/160 MG TABLET PO STA (15:07)
--- NOTE | 2016-11-04 15:10 | ED Physician Documentation ---
PD HPI ABD PAIN - Stated complaint Stated Complaint: FEMALE ,TIRED - Chief complaint Chief Complaint: Abd Pain - History obtained from History obtained from: Patient, Caregiver - History of Present Illness Timing - onset: Other (1 week of frequency and dysuria with suprapubic pressure but no significant back pain, she does have a rattle in her chest and worries that she might be anemic because of the fatigue. She has required transfusion for anemia before.) Review of Systems Constitutional: reports: Fatigue. denies: Fever, Chills Cardiac: denies: Chest pain / pressure, Palpitations Respiratory: denies: Dyspnea, Cough PD PAST MEDICAL HISTORY - Past Medical History Past Medical History: Yes Cardiovascular: Deep vein thrombosis, Pulmonary embolism Respiratory: Pneumonia, Shortness of breath, Other Neuro: Headache/migraine, Peripheral neuropathy, Other Endocrine/Autoimmune: None GI: GERD CNC MACHINE SETTER: None : None HEENT: None Psych: Depression, Anxiety Musculoskeletal: Scoliosis Derm: None Other Past Medical History: thrombocytopenia - Past Surgical History Past Surgical History: Yes Ortho: Spine surgery /CNC MACHINE SETTER: section, Hysterectomy - Present Medications Home Medications: Ambulatory Orders Medication Instructions Recorded Confirmed Clonazepam [Klonopin] 0.5 - 1 mg PO BID PRN 10/01/12 09/14/16 Mirtazapine [Remeron] 15 mg PO QPM 05/19/14 09/14/16 traMADol [Ultram] 50 mg PO QID PRN 08/17/15 09/14/16 Omeprazole 20 mg BID 12/30/15 09/14/16 Metoprolol Succinate 25 mg PO DAILY 01/13/16 09/14/16 Albuterol Sulf [Ventolin Hfa 2 puffs INH Q4H PRN 03/03/16 09/14/16 Inhaler] Budesonide/Formoterol Fumarate 1 puffs INH BID PRN 03/03/16 09/14/16 [Symbicort 160-4.5 Mcg Inhaler] DULoxetine [Cymbalta] 30 mg PO DAILY 03/03/16 09/14/16 Hydroxyurea 500 mg PO DAILY 03/03/16 09/14/16 Hydroxyzine Pamoate 50 mg PO DAILY PRN 03/03/16 09/14/16 Rivaroxaban [Xarelto] 20 mg PO DAILY 03/03/16 09/14/16 busPIRone [Buspar] 15 mg PO BID 03/03/16 09/14/16 risperiDONE [RisperDAL] 1 mg PO QPM 03/03/16 09/14/16 Furosemide [Lasix] 20 mg PO DAILY 06/14/16 09/14/16 Sucralfate 1 gm PO ACHS 06/14/16 09/14/16 tiZANidine [Zanaflex] 8 mg PO QPM 06/14/16 09/14/16 Cephalexin [Keflex] 500 mg PO Q6H #28 capsule 09/14/16 Phenazopyridine [Pyridium] 100 mg PO Q8H PRN #9 tablet 09/14/16 Phenazopyridine HCl [Pyridium] 200 mg PO TID #6 tablet 11/04/16 Sulfamethoxazole/Trimethoprim 1 each PO BID #10 tablet 11/04/16 [Sulfamethoxazole-Tmp Ds Tablet] - Allergies Allergies/Adverse Reactions: Allergies Allergy/AdvReac Type Severity Reaction Status Date / Time diphenhydramine HCl * Allergy Mild Rash Verified 11/04/16 14:17 [From Benadryl] morphine Allergy Mild Nausea Verified 11/04/16 14:17 iron dextran complex Allergy Unknown Verified 11/04/16 14:17 - Social History Does the pt smoke?: No Smoking Status: Never smoker Does the pt drink ETOH?: No Does the pt have substance abuse?: No - Immunizations Immunizations are current?: Yes - POLST Patient has POLST: No POLST Status: Full Code PD ED PE NORMAL - Vitals Vital signs reviewed: Yes - General General: Alert and oriented X 3, No acute distress - Cardiac Cardiac: RRR, No murmur - Respiratory Respiratory: Other (Mild exp wheezes) - Abdomen Abdomen: Non tender - Back Back: No CVA TTP - Extremities Extremities: No edema, No calf tenderness / cord - Neuro Neuro: Alert and oriented X 3, Normal speech Results - Vitals Vitals: Vital Signs - 24 hr 11/04/16 11/04/16 14:14 15:49 Temperature 36.1 C L 36.7 C Heart Rate 95 90 Respiratory 16 15 Rate Blood Pressure 111/80 115/84 H O2 Saturation 95 97 Oxygen O2 Source [Without Activity] 3L O2 via NC O2 Source Room air - Labs Labs: Laboratory Tests 11/04/16 11/04/16 11/04/16 14:28 15:17 15:17 WBC 8.0 RBC 3.76 L Hgb 12.4 Hct 37.9 MCV 100.9 H MCH 32.9 H MCHC 32.6 RDW 16.4 H Plt Count 683 H MPV 9.3 Neut # 6.7 H Lymph # 0.5 L [place] # 0.8 Eos # 0.1 Baso # 0.1 Absolute Nucleated RBC 0.04 Nucleated RBCs 0.4 Manual Slide Review Indicated Platelet Estimate INCREASED (>450,000) Platelet Morphology 2+ GIANT PLATELETS RBC Morph Micro Appear 1+ SCHISTOCYTES Sodium 138 Potassium 4.1 Chloride 102 Carbon Dioxide 27 Anion Gap 9.0 BUN 27 H Creatinine 1.1 H Estimated GFR (MDRD) 50 L Glucose 106 H Calcium 9.3 Urine Color YELLOW Urine Clarity CLOUDY Urine pH 6.0 Ur Specific [place] 1.025 Urine Protein TRACE Urine Glucose (UA) NEGATIVE Urine Ketones NEGATIVE Urine Occult Blood SMALL H Urine Nitrite NEGATIVE Urine Bilirubin NEGATIVE Urine Urobilinogen 0.2 (NORMAL) Ur Leukocyte Esterase MODERATE H Urine RBC 0-5 Urine WBC >25 H Urine WBC Clumps PRESENT Ur Epithelial Cells FEW Renal Tubular Ur Squamous Epith Cells FEW Squamous Urine Bacteria Few Ur Microscopic Review INDICATED Urine Culture Comments INDICATED Departure - Departure Disposition: 01 Home, Self Care Clinical Impression: Cystitis Condition: Good Record reviewed to determine appropriate education?: Yes Instructions: ED UTI Cystitis Female Prescriptions: Phenazopyridine HCl [Pyridium] 200 mg PO TID #6 tablet Sulfamethoxazole/Trimethoprim [Sulfamethoxazole-Tmp Ds Tablet] 1 each PO BID # 10 tablet Comments: Call your doctor to arrange a follow-up appointment, make the next available appointment. In the interim, return anytime if worse or if new symptoms develop. We will culture your urine, the results should be done in 48-72 hours. If an antibiotic change is necessary we will call you. Return if worse in the meantime, especially if you develop increasing flank pain, fevers, or cannot keep down the medication.
[2016-11-04 15:29] LABS: BASOPHILS # (AUTO) 0.1 10^3/uL (0.0-0.1); BASOPHILS % (AUTO) 0.7 %; EOSINOPHILS # (AUTO) 0.1 10^3/uL (0.0-0.7); EOSINOPHILS % (AUTO) 0.6 %; HCT - HEMATOCRIT 37.9 % (37.0-47.0); HGB - HEMOGLOBIN 12.4 g/dL (12.0-16.0); LYMPHOCYTES # (AUTO) 0.5 10^3/uL (1.5-3.5); LYMPHOCYTES % (AUTO) 5.7 %; MEAN CORPUSCULAR HEMOGLOBIN 32.9 pg (27.0-31.0); MEAN CORPUSCULAR HGB CONC 32.6 g/dL (32.0-36.0); MEAN CORPUSCULAR VOLUME 100.9 fL (81.0-99.0); MEAN PLATELET VOLUME 9.3 fL (7.9-10.8); MONOCYTES # (AUTO) 0.8 10^3/uL (0.0-1.0); NEUTROPHILS # (AUTO) 6.7 10^3/uL (1.5-6.6); NUCLEATED RED BLOOD CELLS AUTO 0.4 /100WBC; RED BLOOD COUNT 3.76 10^6/uL (4.20-5.40); RED CELL DISTRIBUTION WIDTH 16.4 % (12.0-15.0)
[2016-11-04 15:40] LABS: CALCIUM 9.3 mg/dL (8.5-10.3); CREATININE 1.1 mg/dL (0.4-1.0); POTASSIUM 4.1 mmol/L (3.5-5.0)
[2016-11-04 15:50] VITALS: BP 115/84
[2016-11-04 15:52] LABS: PLATELET ESTIMATE, MANUAL INCREASED (>450,000) (NORMAL); PLATELET MORPHOLOGY 2+ GIANT PLATELETS (NORMAL)
== END 2016-11-04 16:10 | disposition home or self-care (01) ==
LOC: ED 14:04
DX: N30.90 Cystitis, unspecified without hematuria (principal); D69.6 Thrombocytopenia, unspecified; Z86.718 Personal history of other venous thrombosis and embolism; Z86.711 Personal history of pulmonary embolism
CPT/HCPCS: 36415; 80048; 81001; 81003; 85025; 86850; 86900; 86901; 87086; 99283

== ENCOUNTER 2016-12-11 17:43 | Outpatient (CLI) | payer MEDICARE, MEDICAID | END 2016-12-11 17:44 | disposition critical access hospital (66) | LOC: EMS 17:43 | PROVIDERS: ATTEND Surgery | DX: M54.9 Dorsalgia, unspecified (principal); M25.559 Pain in unspecified hip | CPT/HCPCS: A0425; A0429 ==

== ENCOUNTER 2016-12-11 17:49 | Emergency (ER) | payer MEDICARE, MEDICAID ==
--- NOTE | 2016-12-11 18:36 | ED Physician Documentation ---
PD HPI Fall - Stated complaint Stated Complaint: BACK PX - Chief complaint Chief Complaint: Back Pain - History obtained from History obtained from: Patient - History of Present Illness Mechanism of injury: Other (66-year-old woman on Xarelto for history of PE ( wears O2 at home) presents after a fall 2 days ago in her bathroom. She does not remember exactly how she fell but she did hit her head and hurt her back and right neck. She has persistent pain especially in the back and neck. Also the right hip when she walks.) Review of Systems Constitutional: reports: Reviewed and negative Ears: reports: Reviewed and negative Throat: reports: Reviewed and negative Cardiac: reports: Reviewed and negative PD PAST MEDICAL HISTORY - Past Medical History Cardiovascular: Deep vein thrombosis, Pulmonary embolism Respiratory: COPD, Pneumonia, Shortness of breath, Other Neuro: Headache/migraine, Peripheral neuropathy, Other Endocrine/Autoimmune: None GI: GERD CONSULTANT DIETITIAN: None : None HEENT: None Psych: Depression, Anxiety Musculoskeletal: Scoliosis Derm: None - Past Surgical History Past Surgical History: Yes Ortho: Spine surgery /CONSULTANT DIETITIAN: section, Hysterectomy - Present Medications Home Medications: Ambulatory Orders Medication Instructions Recorded Confirmed Clonazepam [Klonopin] 0.5 - 1 mg PO BID PRN 10/01/12 12/11/16 Mirtazapine [Remeron] 15 mg PO QPM 05/19/14 12/11/16 traMADol [Ultram] 50 mg PO QID PRN 08/17/15 12/11/16 Omeprazole 20 mg PO BID 12/30/15 12/11/16 Metoprolol Succinate 25 mg PO DAILY 01/13/16 12/11/16 Albuterol Sulf [Ventolin Hfa 2 puffs INH Q4H PRN 03/03/16 12/11/16 Inhaler] Budesonide/Formoterol Fumarate 1 puffs INH BID PRN 03/03/16 12/11/16 [Symbicort 160-4.5 Mcg Inhaler] DULoxetine [Cymbalta] 30 mg PO DAILY 03/03/16 12/11/16 Hydroxyurea 500 mg PO DAILY 03/03/16 12/11/16 Hydroxyzine Pamoate 50 mg PO DAILY PRN 03/03/16 12/11/16 Rivaroxaban [Xarelto] 20 mg PO DAILY 03/03/16 12/11/16 risperiDONE [RisperDAL] 1 mg PO QPM 03/03/16 12/11/16 tiZANidine [Zanaflex] 8 mg PO QPM 06/14/16 12/11/16 Calcitonin [Fortical] 1 sprays LUIS DAILY #1 bottle 12/11/16 Oxycodone HCl/Acetaminophen 1 - 2 tab PO Q4H PRN #15 tablet 12/11/16 [Percocet 5-325 mg Tablet] - Allergies Allergies/Adverse Reactions: Allergies Allergy/AdvReac Type Severity Reaction Status Date / Time diphenhydramine HCl * Allergy Mild Rash Verified 12/11/16 18:03 [From Benadryl] morphine Allergy Mild Nausea Verified 12/11/16 18:03 iron dextran complex Allergy Unknown Verified 12/11/16 18:03 - Social History Does the pt smoke?: Yes Smoking Status: Former smoker Does the pt drink ETOH?: No Does the pt have substance abuse?: No - Immunizations Immunizations are current?: Yes - POLST Patient has POLST: No POLST Status: Full Code PD ED PE NORMAL - Vitals Vital signs reviewed: Yes (Hypoxic but she was not on oxygen, she rebounds when placed on oxygen ) - General General: Alert and oriented X 3, No acute distress - HEENT HEENT: PERRL, EOMI - Neck Neck: Supple, no meningeal sign, No bony TTP - Cardiac Cardiac: RRR, No murmur - Respiratory Respiratory: No respiratory distress, Clear bilaterally - Abdomen Abdomen: Normal bowel sounds, Soft, Non tender - Back Back: Other (Tender over the upper and mid lumbar spine, a bit over the upper thoracic spine indefinitely over the lower cervical spine, no sacral tenderness. Right hip is nontender without pain with internal or external rotation.) - Derm Derm: Normal color, Warm and dry - Extremities Extremities: No edema, No calf tenderness / cord - Neuro Neuro: Alert and oriented X 3, Normal speech - Psych Psych: Normal mood, Normal affect Results - Vitals Vitals: Vital Signs - 24 hr 12/11/16 12/11/16 12/11/16 17:56 19:17 20:26 Temperature 98.2 C H Heart Rate 98 85 88 Respiratory 18 18 18 Rate Blood Pressure 109/70 137/70 H O2 Saturation 84 L 95 95 12/11/16 21:13 Temperature 36.7 C Heart Rate 104 H Respiratory 20 Rate Blood Pressure 136/92 H O2 Saturation 100 Oxygen O2 Source [] 3L O2 via NC O2 Source Nasal cannula - Rads (name of study) Imaging obtained include CT of the head, cervical, lumbar spine, and right hip x-ray Radiology: EMP read contemporaneously (No acute findings with the exception of a anterior L1 compression fracture) PD MEDICAL DECISION MAKING - ED course ED course: 66-year-old woman on anticoagulation in a complicated medical history which is also notable for a history of drug-seeking behavior and narcotic abuse presents after a fall, she is found to have an acute L1 compression fracture or tramadol is insufficient for which she is prescribed a limited number of Percocet as well as calcitonin nasal spray. Departure - Departure Disposition: 01 Home, Self Care Clinical Impression: Adequate anticoagulation on anticoagulant therapy, Strain of back muscle Fall Qualifiers: Encounter type: initial encounter Qualified Code(s): W19.XXXA - Unspecified fall, initial encounter Head injury Qualifiers: Encounter type: initial encounter Qualified Code(s): S09.90XA - Unspecified injury of head, initial encounter Neck strain Qualifiers: Encounter type: initial encounter Qualified Code(s): S16.1XXA - Strain of muscle, fascia and tendon at neck level, initial encounter Compression fracture of L1 lumbar vertebra Qualifiers: Encounter type: initial encounter Fracture type: closed Qualified Code(s): S32.010A - Wedge compression fracture of first lumbar vertebra, initial encounter for closed fracture Condition: Good Record reviewed to determine appropriate education?: Yes Instructions: ED Fx Comp Vertebral Prescriptions: Calcitonin [Fortical] 1 sprays LUIS DAILY #1 bottle Oxycodone HCl/Acetaminophen [Percocet 5-325 mg Tablet] 1 - 2 tab PO Q4H PRN #15 tablet PRN Reason: Pain Comments: Call your doctor to arrange a follow-up appointment, make the next available appointment. In the interim, return anytime if worse or if new symptoms develop. Do not drink or drive while taking narcotic pain medication. Note that many narcotic pain relievers also contain Tylenol/acetaminophen. Please ensure that your total dose of acetaminophen from all sources does not exceed 3 g (3000 mg) per day. You may get constipated while on this medication. Take a stool softener such as Colace twice a day while you are on it. Also add an royz-atr-apptwqy laxative such as senna or MiraLAX on any day that you do not have a bowel movement. If you received a narcotic pain medication or sedative while in the emergency department, do not drive for the next 24 hours.
[2016-12-11] MEDS: oxyCOD/ACETAMIN 5 MG/325 MG TABLET PO STA (18:44)
[2016-12-11] MEDS ORDERED: oxyCOD/ACETAMIN 5 MG/325 MG TABLET PO ONE (18:48)
--- NOTE | 2016-12-11 19:24 | CT Preliminary Report ---
Exam: CT HEAD W/O IMPRESSION: Generalized age-related cortical atrophic changes without evidence of acute intracranial abnormality. [facility] SITE ID: [id number]
--- NOTE | 2016-12-11 19:31 | CT Preliminary Report ---
Exam: CT CERVICAL SPINE W/O IMPRESSION: 1. No acute bony abnormality. 2. Mild progression of multilevel moderate degenerative changes. [facility] SITE ID: [id number]
--- NOTE | 2016-12-11 19:34 | CT Report ---
EXAM: CT HEAD EXAM DATE: 12/11/2016 07:15 PM. CLINICAL HISTORY: Fall, head/neck back injury. COMPARISON: 05/29/2015. TECHNIQUE: Multiaxial CT images were obtained from the foramen magnum to the vertex. IV contrast: Non e. Reformats: Coronal. In accordance with CT protocol optimization, one or more of the following dose reduction techniques w ere utilized for this exam: automated exposure control, adjustment of mA and/or KV based on patient s ize, or use of iterative reconstructive technique. FINDINGS: Parenchyma: No intraparenchymal hemorrhage. No evidence of mass, midline shift, or CT findings of acu te infarction. Padilla-white differentiation is distinct. Extraaxial Spaces: Normal for age. No subdural or epidural collections identified. Ventricles: The ventricles and cortical sulci are enlarged, consistent with age-related tissue loss. Sinuses and orbits: Imaged paranasal sinuses, orbits, and mastoids show no significant abnormality. Bones: No evidence of fracture or calvarial defect. Other: Diffuse chronic microangiopathic white matter changes are evident. IMPRESSION: Generalized age-related cortical atrophic changes without evidence of acute intracranial abnormality. [facility] Referring Provider Line: [phone] SITE ID: [id number]
--- NOTE | 2016-12-11 19:39 | CT Report ---
EXAM: CT CERVICAL SPINE WITHOUT CONTRAST DATE: 12/11/2016 07:15 PM HISTORY: Fall, head/neck back injury. COMPARISONS: 04/15/2014. TECHNIQUE: Thin-section axial images were acquired of the cervical spine without contrast. Post-proce ssing: Coronal and sagittal reformats. Other: None. In accordance with CT protocol optimization, one or more of the following dose reduction techniques w ere utilized for this exam: automated exposure control, adjustment of mA and/or KV based on patient s ize, or use of iterative reconstructive technique. FINDINGS: Alignment: New 4 mm degenerative anterior subluxation C4 on C5. Bones: No fracture or bone lesion. Sternotomy. Interspace Levels/Facets: Progression of multilevel moderate degenerative changes, remaining greatest at C4-C5, C5-C6, and C6-C 7. Greatest degree of central spinal canal stenosis is mild at the C4-C5 level. Multilevel moderate to marked bilateral bony neural foraminal compromise. Musculature: Normal. No fatty atrophy. Other: Chronic lung disease. IMPRESSION: 1. No acute bony abnormality. 2. Mild progression of multilevel moderate degenerative changes. [facility] Referring Provider Line: [phone] SITE ID: [id number]
--- NOTE | 2016-12-11 19:44 | CT Preliminary Report ---
Exam: CT LUMBAR SPINE W/O IMPRESSION: 1. Superior endplate concavity with anterior cortical buckling compatible with acute compression frac ture at L1. 2. Posterior fusion, T12-L2. 3. Advanced degenerative disk disease L3-S1 and severe facet arthropathy L2-S1. [facility] SITE ID: [id number]
--- NOTE | 2016-12-11 19:46 | CT Report ---
EXAM: CT LUMBAR SPINE WITHOUT CONTRAST EXAM DATE: 12/11/2016 07:15 PM. CLINICAL HISTORY: Fall. Head/neck and back inj. COMPARISONS: None. TECHNIQUE: Thin-section axial images were acquired of the lumbar spine from T12 to S1 without contras t. Post-processing: Coronal and sagittal reformats. Other: None. In accordance with CT protocol optimization, one or more of the following dose reduction techniques w ere utilized for this exam: automated exposure control, adjustment of mA and/or KV based on patient s ize, or use of iterative reconstructive technique. FINDINGS: Alignment: Levoscoliosis. Bones: Five nzx-niv-gbngook lumbar vertebral bodies are present. Posterior bony fusion, T12-L2. Super ior endplate concavity at L1 with mild anterior cortical buckling concerning for acute compression fr acture. Disk Levels/Facets: T12-L1: Unremarkable. L1-L2: Unremarkable. L2-L3: Advanced bilateral facet arthropathy with incomplete posterior fusion. L3-L4: Advanced disk space narrowing. Spinal stenosis. Advanced bilateral facet arthropathy with inco mplete fusion. L4-L5: Advanced disk space narrowing. Left foraminal narrowing. Advanced bilateral facet arthropathy. L5-S1: Advanced disk space narrowing. Moderate right and advanced left facet arthropathy. Other: IVC filter noted IMPRESSION: 1. Superior endplate concavity with anterior cortical buckling compatible with acute compression frac ture at L1. 2. Posterior fusion, T12-L2. 3. Advanced degenerative disk disease L3-S1 and severe facet arthropathy L2-S1. [facility] Referring Provider Line: [phone] SITE ID: [id number]
--- NOTE | 2016-12-11 19:50 | CT Preliminary Report ---
Exam: CT THORACIC SPINE W/O IMPRESSION: 1. No acute bony abnormalities identified. 2. Dextroscoliosis. 3. Posterior fusion, T12 inferiorly. 4. Degenerative disk disease, T8-T12. [facility] SITE ID: [id number]
--- NOTE | 2016-12-11 19:51 | XRAY Preliminary Report ---
Exam: XR HIP W/PELVIS 2-3V RT IMPRESSION: No fracture identified. [facility] SITE ID: [id number]
--- NOTE | 2016-12-11 19:52 | CT Report ---
EXAM: CT THORACIC SPINE WITHOUT CONTRAST EXAM DATE: 12/11/2016 07:15 PM. CLINICAL HISTORY: Fall. Head/neck back inj. COMPARISONS: None. TECHNIQUE: Thin-section axial images were acquired of the thoracic spine from C7 to L1 without contra st. Post-processing: Coronal and sagittal reformats. Other: None. In accordance with CT protocol optimization, one or more of the following dose reduction techniques w ere utilized for this exam: automated exposure control, adjustment of mA and/or KV based on patient s ize, or use of iterative reconstructive technique. FINDINGS: Alignment: Dextroscoliosis. No spondylolisthesis. Bones: Posterior fusion, T12 inferiorly Disk Levels/Facets: Degenerative disk disease, T8-T12. Other: Hiatal hernia noted. Mosaic attenuation noted in the lungs. IMPRESSION: 1. No acute bony abnormalities identified. 2. Dextroscoliosis. 3. Posterior fusion, T12 inferiorly. 4. Degenerative disk disease, T8-T12. [facility] Referring Provider Line: [phone] SITE ID: [id number]
--- NOTE | 2016-12-11 19:54 | XRAY Report ---
EXAM: RIGHT HIP AND PELVIS RADIOGRAPHY EXAM DATE: 12/11/2016 07:16 PM. HISTORY: Fall. Head/neck back inj. COMPARISONS: None. TECHNIQUE: 1 view of the pelvis and 1 view of the hip. FINDINGS: Bones: No traumatic or destructive bone abnormality identified. Degenerative changes and levoscoliosi s in the lumbar spine. Joints: The bilateral hip, pubis symphysis, and sacroiliac joints are preserved. Soft Tissues: Left pelvic clips noted. IMPRESSION: No fracture identified. [facility] Referring Provider Line: [phone] SITE ID: [id number]
[2016-12-11] MEDS: oxyCODONE/ACET 5/325 Prepack 4 PO STA (20:19)
[2016-12-11] MEDS ORDERED: oxyCODONE/ACET 5/325 Prepack 4 PO ONE (20:23)
[2016-12-11 21:20] VITALS: BP 136/92
== END 2016-12-11 21:30 | disposition home or self-care (01) ==
LOC: EDUNIT# → ED 17:49
DX: S09.90XA Unspecified injury of head, initial encounter (principal); S39.012A Strain of muscle, fascia and tendon of lower back, initial encounter; S32.010A Wedge compression fracture of first lumbar vertebra, initial encounter for closed fracture; W01.0XXA Fall on same level from slipping, tripping and stumbling without subsequent striking against object, initial encounter; G62.9 Polyneuropathy, unspecified; Z86.711 Personal history of pulmonary embolism; Z86.718 Personal history of other venous thrombosis and embolism; Z79.01 Long term (current) use of anticoagulants; Z87.891 Personal history of nicotine dependence
CPT/HCPCS: 70450; 72125; 72128; 72131; 99283; 99284

== ENCOUNTER 2016-12-23 14:55 | Emergency (ER) | payer MEDICARE, MEDICAID ==
[2016-12-23 14:59] VITALS: BP 141/91
[2016-12-23] MEDS ORDERED: oxyCOD/ACETAMIN 5 MG/325 MG TABLET PO STA (15:29)
--- NOTE | 2016-12-23 15:34 | ED Physician Documentation ---
PD HPI BACK INJURY - Stated complaint Stated Complaint: BACK PX - History obtained from History obtained from: Patient - History of Present Illness Type of injury: Other (She fell a little over a week ago. She was seen here and diagnosed with an L1 compression fracture. She has multiple comorbidities including history of massive PE and chronic dyspnea with hypoxemia and oxygen dependence. She has not seen her doctor yet in follow-up. She is out of the Percocet needs more. She is taking tramadol which is not helping. She has an appointment with her doctor in 5 days. There was no new injury or fall. She is taking calcitonin.) Review of Systems Constitutional: reports: Reviewed and negative Nose: reports: Reviewed and negative Cardiac: reports: Reviewed and negative Respiratory: reports: Dyspnea (Chronic), Cough (Chronic) PD PAST MEDICAL HISTORY - Past Medical History Cardiovascular: Deep vein thrombosis, Pulmonary embolism Respiratory: COPD, Pneumonia, Shortness of breath, Other Neuro: Headache/migraine, Peripheral neuropathy, Other Endocrine/Autoimmune: None GI: GERD PERSONNEL SECURITY SPECIALIST: None : None HEENT: None Psych: Depression, Anxiety Musculoskeletal: Scoliosis Derm: None - Past Surgical History Past Surgical History: Yes Ortho: Spine surgery /PERSONNEL SECURITY SPECIALIST: section, Hysterectomy - Present Medications Home Medications: Ambulatory Orders Medication Instructions Recorded Confirmed clonazePAM [Klonopin] 0.5 - 1 mg PO BID PRN 10/01/12 12/23/16 Mirtazapine [Remeron] 15 mg PO QPM 05/19/14 12/23/16 traMADol [Ultram] 50 mg PO QID PRN 08/17/15 12/23/16 Omeprazole 20 mg PO BID 12/30/15 12/23/16 Metoprolol Succinate 25 mg PO DAILY 01/13/16 12/23/16 Albuterol Sulf [Ventolin Hfa 2 puffs INH Q4H PRN 03/03/16 12/23/16 Inhaler] Budesonide/Formoterol Fumarate 1 puffs INH BID PRN 03/03/16 12/23/16 [Symbicort 160-4.5 Mcg Inhaler] DULoxetine [Cymbalta] 30 mg PO DAILY 03/03/16 12/23/16 Hydroxyurea 500 mg PO DAILY 03/03/16 12/23/16 Rivaroxaban [Xarelto] 20 mg PO DAILY 03/03/16 12/23/16 hydrOXYzine pamoate [Hydroxyzine 50 mg PO DAILY PRN 03/03/16 12/23/16 Pamoate] risperiDONE [RisperDAL] 1 mg PO QPM 03/03/16 12/23/16 Calcitonin [Fortical] 1 sprays LUIS DAILY #1 bottle 12/11/16 12/23/16 Oxycodone HCl/Acetaminophen 1 - 2 tab PO Q4H PRN #15 tablet 12/23/16 [Percocet 5-325 mg Tablet] - Allergies Allergies/Adverse Reactions: Allergies Allergy/AdvReac Type Severity Reaction Status Date / Time diphenhydramine HCl * Allergy Mild Rash Verified 12/23/16 14:58 [From Benadryl] morphine Allergy Mild Nausea Verified 12/23/16 14:58 iron dextran complex Allergy Unknown Verified 12/23/16 14:58 - Social History Does the pt smoke?: Yes Smoking Status: Former smoker Does the pt drink ETOH?: No Does the pt have substance abuse?: No - Immunizations Immunizations are current?: Yes - POLST Patient has POLST: No POLST Status: Full Code PD ED PE NORMAL - Vitals Vital signs reviewed: Yes - General General: Alert and oriented X 3, No acute distress - Cardiac Cardiac: RRR, No murmur - Respiratory Respiratory: No respiratory distress - Back Back: Other (Tender high L spine) - Extremities Extremities: No edema, No calf tenderness / cord - Neuro Neuro: Alert and oriented X 3, Normal speech - Psych Psych: Normal mood, Normal affect Results - Vitals Vitals: Vital Signs - 24 hr 12/23/16 14:55 Temperature 36.6 C Heart Rate 100 Respiratory 18 Rate Blood Pressure 141/91 H O2 Saturation 90 L Oxygen O2 Source [Without Activity] 3L O2 via NC O2 Source Room air PD MEDICAL DECISION MAKING - ED course ED course: She has a known L1 compression fracture and as such I am refilling her pain medication despite the known history of drug-seeking behavior and narcotic dependence. It was made clear to her that she has an appointment with her doctor this coming Sunday and no further pain medications would be forthcoming from this ER after that. Departure - Departure Disposition: 01 Home, Self Care Clinical Impression: Compression fracture of L1 lumbar vertebra Qualifiers: Encounter type: subsequent encounter Fracture type: closed Fracture healing: with routine healing Qualified Code(s): S32.010D - Wedge compression fracture of first lumbar vertebra, subsequent encounter for fracture with routine healing Condition: Good Record reviewed to determine appropriate education?: Yes Instructions: ED Fx Comp Vertebral Prescriptions: Oxycodone HCl/Acetaminophen [Percocet 5-325 mg Tablet] 1 - 2 tab PO Q4H PRN #15 tablet PRN Reason: Pain Comments: Follow-up with your doctor this coming Sunday as scheduled. As discussed no further prescription pain medications will be dispensed or administered from the ER for this problem after that. Do not drink or drive while taking narcotic pain medication. Note that many narcotic pain relievers also contain Tylenol/acetaminophen. Please ensure that your total dose of acetaminophen from all sources does not exceed 3 g (3000 mg) per day. You may get constipated while on this medication. Take a stool softener such as Colace twice a day while you are on it. Also add an fpuq-kci-hwtvnxm laxative such as senna or MiraLAX on any day that you do not have a bowel movement. If you received a narcotic pain medication or sedative while in the emergency department, do not drive for the next 24 hours.
[2016-12-23] MEDS ORDERED: oxyCOD/ACETAMIN 5 MG/325 MG TABLET PO ONE (15:39)
== END 2016-12-23 16:06 | disposition home or self-care (01) ==
LOC: ED 14:55
DX: S32.010D Wedge compression fracture of first lumbar vertebra, subsequent encounter for fracture with routine healing (principal); W19.XXXD Unspecified fall, subsequent encounter; G62.9 Polyneuropathy, unspecified; Z86.711 Personal history of pulmonary embolism; Z86.718 Personal history of other venous thrombosis and embolism; Z99.81 Dependence on supplemental oxygen; Z87.891 Personal history of nicotine dependence; R05 Cough
CPT/HCPCS: 99282; 99283; A9270

== ENCOUNTER 2017-02-25 11:12 | Inpatient (IN) | payer MEDICARE, MEDICAID ==
--- NOTE | 2017-02-25 12:39 | ED Physician Documentation ---
PD HPI DYSPNEA - Stated complaint Stated Complaint: UNSTEADY, SOA - Chief complaint Chief Complaint: Resp - History obtained from History obtained from: Patient - History of Present Illness Timing - onset: Other (66-year-old woman with history of thrombocytosis, also history of pulmonary embolism with thrombectomy and recurrence because of medication noncompliance recently traveled to [place] by car to visit family, returned on [place]. Since about 48 hours ago she has had increased dyspnea on exertion. She always has some dyspnea but it is more than normal. She is not using oxygen at home currently but has been in the past. When I asked her if she is having chest pain on exertion she says yes but on description she describes it as dizziness and vertigo with mild headaches but no specific chest pain.) Review of Systems Ten Systems: 10 systems reviewed and negative Constitutional: denies: Fever, Chills Cardiac: reports: Pedal edema. denies: Palpitations, Calf pain Respiratory: reports: Dyspnea, Cough GI: denies: Abdominal Pain, Nausea, Vomiting PD PAST MEDICAL HISTORY - Past Medical History Cardiovascular: Deep vein thrombosis, Pulmonary embolism Respiratory: COPD, Pneumonia, Shortness of breath, Other Neuro: Headache/migraine, Peripheral neuropathy, Other Endocrine/Autoimmune: None GI: GERD IMMIGRATION MANAGER: None : None HEENT: None Psych: Depression, Anxiety Musculoskeletal: Scoliosis Derm: None - Past Surgical History Past Surgical History: Yes Ortho: Spine surgery /IMMIGRATION MANAGER: section, Hysterectomy - Present Medications Home Medications: Ambulatory Orders Medication Instructions Recorded Confirmed clonazePAM [Klonopin] 0.5 - 1 mg PO BID PRN 10/01/12 02/25/17 Mirtazapine [Remeron] 15 mg PO QPM 05/19/14 02/25/17 traMADol [Ultram] 50 mg PO QID PRN 08/17/15 02/25/17 Omeprazole 20 mg PO BID 12/30/15 02/25/17 Metoprolol Succinate 25 mg PO DAILY 01/13/16 02/25/17 Albuterol Sulf [Ventolin Hfa 2 puffs INH Q4H PRN 03/03/16 02/25/17 Inhaler] Budesonide/Formoterol Fumarate 1 puffs INH BID PRN 03/03/16 02/25/17 [Symbicort 160-4.5 Mcg Inhaler] DULoxetine [Cymbalta] 30 mg PO DAILY 03/03/16 02/25/17 Hydroxyurea 500 mg PO DAILY 03/03/16 02/25/17 Rivaroxaban [Xarelto] 20 mg PO DAILY 03/03/16 02/25/17 hydrOXYzine pamoate [Hydroxyzine 50 mg PO DAILY PRN 03/03/16 02/25/17 Pamoate] risperiDONE [RisperDAL] 1 mg PO QPM 03/03/16 02/25/17 Calcitonin [Fortical] 1 sprays LUIS DAILY #1 bottle 12/11/16 02/25/17 Oxycodone HCl/Acetaminophen 1 - 2 tab PO Q4H PRN #15 tablet 12/23/16 02/25/17 [Percocet 5-325 mg Tablet] Furosemide [Furosemide] 20 mg PO DAILY 02/25/17 02/25/17 - Allergies Allergies/Adverse Reactions: Allergies Allergy/AdvReac Type Severity Reaction Status Date / Time diphenhydramine HCl * Allergy Mild Rash Verified 02/25/17 11:52 [From Benadryl] morphine Allergy Mild Nausea Verified 02/25/17 11:52 iron dextran complex Allergy Unknown Verified 02/25/17 11:52 - Social History Does the pt smoke?: No Smoking Status: Former smoker Does the pt drink ETOH?: No Does the pt have substance abuse?: No - Immunizations Immunizations are current?: Yes - POLST Patient has POLST: No POLST Status: Full Code PD ED PE NORMAL - Vitals Vital signs reviewed: Yes (hypoxemia) - General General: Alert and oriented X 3, No acute distress - HEENT HEENT: PERRL, EOMI - Neck Neck: Supple, no meningeal sign, No bony TTP - Cardiac Cardiac: RRR, No murmur - Respiratory Respiratory: No respiratory distress, Other (Mild expiratory wheezes) - Abdomen Abdomen: Soft, Non tender - Extremities Extremities: No deformity, No tenderness to palpate, Other (Mild pedal edema, no calf tenderness, they are symmetric.) - Neuro Neuro: Alert and oriented X 3, Normal speech - Psych Psych: Normal mood, Normal affect Results - Vitals Vitals: Vital Signs - 24 hr 02/25/17 02/25/17 02/25/17 11:47 12:52 13:51 Temperature 36.0 C L 98.3 C H Heart Rate 82 76 80 Respiratory 20 16 14 Rate Blood Pressure 141/91 H 141/104 H O2 Saturation 89 L 93 Oxygen O2 Source [Without Activity] 3L O2 via NC O2 Source Nasal cannula Oxygen Flow Rate 2 - EKG (time done) 1201 Rate: Rate (enter#) (86) Rhythm: NSR [place]: Normal Intervals: Normal PA Ischemia: Other (RVH with inverted T waves anterior. Compared to the last EKG on file, June 14 of this year, the T waves which were inverted were actually more prominently inverted then than they are now.) Computer interpretation: Agree with computer - Labs Labs: Laboratory Tests 02/25/17 02/25/17 02/25/17 12:41 12:41 12:41 WBC 8.5 RBC 4.64 Hgb 12.0 Hct 40.1 MCV 86.4 MCH 25.8 L MCHC 29.9 L RDW 22.9 H Plt Count 556 H MPV 9.5 Neut # 6.9 H Lymph # 0.3 L [place] # 1.1 H Eos # 0.1 Baso # 0.1 Absolute Nucleated RBC 0.04 Nucleated RBC % 0.5 Manual Slide Review Indicated Platelet Estimate INCREASED (>450,000) Platelet Morphology NORMAL APPEARANCE RBC Morph Micro Appear 1+ OVALOCYTES Sodium 137 Potassium 5.0 Chloride 104 Carbon Dioxide 24 Anion Gap 9.0 BUN 51 H Creatinine 1.4 H Estimated GFR (MDRD) 38 L Glucose 90 Calcium 9.6 Total Bilirubin 0.6 AST 29 ALT 26 Alkaline Phosphatase 99 Troponin I < 0.04 Total Protein 7.6 Albumin 3.9 Globulin 3.7 Albumin/Globulin Ratio 1.1 Lipase 14 L PD MEDICAL DECISION MAKING - ED course ED course: 66-year-old woman with history of COPD, thrombocytosis, and massive pulmonary embolism on anticoagulation presents with acute dyspnea as well as cough and wheezing a couple days after traveling. Clearly pulmonary embolism is high in the differential and CT was done for sameGiven the results I suspect the hypoxemia which is persistent in the emergency department, usually 85-89% on room air is likely due to a COPD exacerbation. She was administered nebs here as well as steroids and antibiotics. Spoke with Dr. Medina for admission at 2: 10 PM and he requests also a flu swab, this is perfectly reasonable as it is going around right now. Departure - Departure Disposition: 65 [facility] DC/Xfer Clinical Impression: Severe chronic obstructive pulmonary disease, Hypoxemia Condition: Serious Discharge Date/Time: 02/25/17 15:15
[2017-02-25] MEDS ORDERED: IPRATROPIUM/ALBUTEROL 3 ML NEB INH STA (12:43)
[2017-02-25 12:46] LABS: BASOPHILS # (AUTO) 0.1 10^3/uL (0.0-0.1); BASOPHILS % (AUTO) 0.7 %; EOSINOPHILS # (AUTO) 0.1 10^3/uL (0.0-0.7); EOSINOPHILS % (AUTO) 0.9 %; LYMPHOCYTES # (AUTO) 0.3 10^3/uL (1.5-3.5); LYMPHOCYTES % (AUTO) 3.9 %; MEAN CORPUSCULAR HEMOGLOBIN 25.8 pg (27.0-31.0); MEAN CORPUSCULAR HGB CONC 29.9 g/dL (32.0-36.0); MEAN CORPUSCULAR VOLUME 86.4 fL (81.0-99.0); MEAN PLATELET VOLUME 9.5 fL (7.9-10.8); MONOCYTES # (AUTO) 1.1 10^3/uL (0.0-1.0); NEUTROPHILS # (AUTO) 6.9 10^3/uL (1.5-6.6); NEUTROPHILS % (AUTO) 81.5 %; PLT - PLATELET COUNT 556 10^3/uL (130-450); RED BLOOD COUNT 4.64 10^6/uL (4.20-5.40); RED CELL DISTRIBUTION WIDTH 22.9 % (12.0-15.0); WHITE BLOOD COUNT 8.5 x10^3/uL (4.8-10.8)
[2017-02-25 12:59] LABS: ALBUMIN 3.9 g/dL (3.2-5.5); ALBUMIN/GLOBULIN RATIO 1.1 (1.0-2.2); BILIRUBIN,TOTAL 0.6 mg/dL (0.2-1.0); CALCIUM 9.6 mg/dL (8.5-10.3); CREATININE 1.4 mg/dL (0.4-1.0); TOTAL PROTEIN 7.6 g/dL (6.7-8.2)
[2017-02-25] MEDS ORDERED: IOPAMIDOL-300 100 ML VIAL ONE (12:59)
[2017-02-25 13:04] LABS: PLATELET ESTIMATE, MANUAL INCREASED (>450,000) (NORMAL); PLATELET MORPHOLOGY NORMAL APPEARANCE (NORMAL)
--- NOTE | 2017-02-25 13:04 | XRAY Preliminary Report ---
Exam: XR CHEST 1 VIEW IMPRESSION: 1. Stable mild cardiac enlargement. 2. Clear lungs. [facility] SITE ID: [id number]
--- NOTE | 2017-02-25 13:04 | XRAY Report ---
EXAM: CHEST RADIOGRAPHY EXAM DATE: 02/25/2017 12:25 PM. CLINICAL HISTORY: Chest pain. COMPARISON: 06/14/2016. CT chest 03/02/2016 TECHNIQUE: 1 view. FINDINGS: Lungs/Pleura: No focal opacities evident. No pleural effusion. No pneumothorax. Mediastinum: Heart size mildly enlarged. Aortic tortuosity noted. Hiatal hernia is better seen on janice or CT scan. Other: Sternotomy wires are intact. Scoliosis of the spine. IMPRESSION: 1. Stable mild cardiac enlargement. 2. Clear lungs. [facility] Referring Provider Line: [phone] SITE ID: [id number]
[2017-02-25] MEDS ORDERED: SODIUM CHLORIDE 0.9% 1,000 ML IV ONE (13:10)
[2017-02-25] MEDS: IOPAMIDOL-300 100 ML VIAL IVP ONE (13:34)
--- NOTE | 2017-02-25 13:55 | CT Report ---
EXAM: CT ANGIOGRAM CHEST EXAM DATE: 02/25/2017 01:34 PM. CLINICAL HISTORY: Dyspnea, H/O PE with thrombectomy. COMPARISON: Chest radiograph, same day. CT 03/02/2016 and 01/16/2016. TECHNIQUE: Routine helical imaging was performed through the chest in the pulmonary arterial phase. I V Contrast: 70 mL Isovue-300. Reconstructions: Coronal 3-D MIP reconstructions.Sagittal and coronal. In accordance with CT protocol optimization, one or more of the following dose reduction techniques w ere utilized for this exam: automated exposure control, adjustment of mA and/or KV based on patient s ize, or use of iterative reconstructive technique. FINDINGS: Pulmonary Arteries: Diagnostic quality: Adequate through the segmental arteries. There is chronic nonfilling of the right lower lobe and right middle lobe pulmonary arteries. No acute pulmonary arterial filling defects are evident. RV/LV is within normal limits. There is no interventricular septal bowing. There is reflux of contras t material in the IVC. Lungs/Pleura: There are geographic areas of groundglass attenuation in both lungs, similar pattern co mpared to the prior CT. There are patchy and nodular opacities in the right lung, predominantly the l ower lobe, also similar to prior. No pneumothorax. Trace pleural fluid on the right. Mediastinum: Normal heart size. Persistent dilation of the central and left pulmonary arteries with a ttenuation of the right pulmonary artery. A few prominent lymph nodes are noted: 1. Right paratracheal series 4 image 41 measuring 1 cm short axis dimension, previously 0.7 cm. 2. Between the SVC and aorta series 4 image 33 measuring 0.9 cm short axis dimension, previously 0.4 cm. 3. Right supraclavicular series 4 image 10 measuring 0.9 cm, stable. Thoracic Aorta: Within normal limits. Upper Abdomen: A hiatal hernia is present. Other: No acute skeletal abnormalities. Sternal wires. Convex right thoracic scoliosis. IMPRESSION: 1. No acute pulmonary arterial filling defects. 2. Chronic nonfilling of the right middle and lower lobe pulmonary arteries. 3. Irregular right lung opacities, mostly in the right lower lobe, similar to the most recent prior C T. 4. Interval development of mediastinal lymphadenopathy. [facility] Referring Provider Line: [phone] SITE ID: [id number]
[2017-02-25] MEDS ORDERED: clonazePAM 0.5 MG TABLET PO STA (14:06)
[2017-02-25] MEDS ORDERED: cefTRIAXone 1 GM VIAL IVP STA (14:06)
[2017-02-25] MEDS ORDERED: methylPREDNISolone SUCCINATE 125 MG/2 ML VIAL IVP STA (14:06)
[2017-02-25] MEDS ORDERED: KETOROLAC 30 MG/ML VIAL IVP STA (14:06)
[2017-02-25] MEDS ORDERED: hydrOXYzine PAMOATE 25 MG CAPSULE PO PRN (14:23)
[2017-02-25] MEDS ORDERED: IPRATROPIUM/ALBUTEROL 3 ML NEB INH PRN (14:24)
[2017-02-25] MEDS ORDERED: PROCHLORPERAZINE 10 MG/2 ML VIAL IVP PRN (14:24)
[2017-02-25] MEDS ORDERED: ONDANSETRON 4 MG/2 ML VIAL IVP PRN (14:24)
[2017-02-25] MEDS ORDERED: PROMETHAZINE 25 MG/1 ML VIAL IM PRN (14:24)
[2017-02-25] MEDS ORDERED: FORMOTEROL FUMARATE NEB 20 MCG/2 ML INH SCH (15:00)
[2017-02-25] MEDS: PANTOPRAZOLE 40 MG TABLET PO SCH (15:30)
[2017-02-25] MEDS: IPRATROPIUM/ALBUTEROL 3 ML NEB INH SCH ×2 (15:53→19:55)
[2017-02-25] MEDS: HYDROcod/ACETAM 10 MG/325 MG TABLET PO PRN ×2 (16:15→20:26)
--- NOTE | 2017-02-25 17:03 | HISTORY & PHYSICAL EXAMINATION ---
Chief Complaint - Chief Complaint Chief Complaint: Shortness of breath History of Present Illness - Admitted From Admitted From:: Emergency department - History Obtained From Records Reviewed: Yes History obtained from: Patient Exam Limitations: None - History of Present Illness HPI Comment/Other: Patient is a 66-year-old female with a past medical history significant for essential thrombocytosis with Dae 2 mutation, recurrent pulmonary emboli and DVTs with history of massive saddle PE in September 2014 status post cervical thrombectomy, on chronic anticoagulation previously on warfarin now on Xarelto, history of strokes with no residual deficit, CKD stage III, bipolar disorder, COPD, hypertension, anxiety and depression who presented to the emergency department with a chief complaint of shortness of breath. The patient states that her symptoms started about 2-3 days ago. She states that she first began feeling short of breath with exertion and this continued to worsen over the last couple of days. She states that she was having wheezing and chest tightness try to take her inhalers at home but did not have relief of symptoms. The patient states that she is also noticed that she has had increasing weakness, cramps in her shoulders and felt increasingly fatigued with any exertion. The patient denies any lower extremity edema, orthopnea, PND, cough, fevers or chills. She states today she went to [place] and just going from her car into the [place] she became so short of air that she decided she needed to go to the emergency room once she got into [place]. She states that she had to stop and she was out of breath and felt extremely anxious and felt as though she was going to . Patient otherwise denies any headaches, blurred vision, runny nose, sore throat , nasal congestion, abdominal pain, nausea, vomiting, diarrhea, constipation, urinary urgency, urinary frequency, dysuria, increased lower extremity swelling , joint pains, muscle aches, neck stiffness, recent unintentional weight loss, weight gain, polydipsia, difficulty swallowing or any focal neurologic deficits. On presentation to the emergency department the patient was afebrile and vital signs were within normal limits aside from the fact that she was hypoxic. Patient's O2 sats were anywhere between 85-88% on room air. The patient previously was on oxygen but had stopped using it so the oxygen company stopped giving her oxygen. The patient's lab work revealed a creatinine of 1.4 which is slightly elevated from her baseline of 1.1. The patient's troponin was negative she had no leukocytosis and her platelet count was chronically elevated. The patient did have a left shift on differential with elevated neutrophils and decreased lymphocytes. The patient's flu swab was negative. The patient did undergo a chest x-ray which revealed stable mild cardiac enlargement but clear lungs. Given the patient's history of pulmonary embolism and the fact that she had just recently come back from a long drive to [place] there was concern for pulmonary embolism therefore patient underwent a CT angiogram of her lungs. The CT revealed no acute pulmonary atrial filling defects. Chronic non-filling of the right middle and lower lobe pulmonary arteries from previous PE. Irregular right lung opacities mostly in the right lower lobe similar to previous CT. With interval development of mediastinal lymphadenopathy. The patient appeared to be wheezy on examination and was given several doses of nebulizer treatments as well as Rocephin in the emergency department. She was also given a dose of Solu-Medrol. The patient appear to have some improvement of the wheezing but remained hypoxic and it was decided the patient would be best off admitted to the hospital for a COPD exacerbation. 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 She currently lives on [address] she is living alone. She is from her ex-. She has 3 children 2 sons and 1 daughter. All her kids live outside of the state. She has 1 son in [place] and one son in [place]. Her daughter lives in [place]. 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 She does report exposure to fumes while she worked there. The patient lives in [place], [place]. She does have a caregiver who comes to her house several times a week and a second caregiver who also comes to her home. The patient used to smoke from the age of 13 up until approximately the age of 53 about 35 years she smoked about a pack a day. She denies any alcohol or illicit drug use. - POLST Patient has POLST: No POLST Status: Full Code Meds/Allgy - Home Medications Home Medications: Ambulatory Orders Medication Instructions Recorded Confirmed clonazePAM [Klonopin] 0.5 - 1 mg PO TID PRN 10/01/12 02/25/17 Mirtazapine [Remeron] 30 mg PO QPM 05/19/14 02/25/17 traMADol [Ultram] 50 mg PO QID PRN 08/17/15 02/25/17 Omeprazole 20 mg PO BID 12/30/15 02/25/17 Metoprolol Succinate 25 mg PO DAILY 01/13/16 02/25/17 Albuterol Sulf [Ventolin Hfa 2 puffs INH Q4H PRN 03/03/16 02/25/17 Inhaler] Budesonide/Formoterol Fumarate 2 puffs INH BID 03/03/16 02/25/17 [Symbicort 160-4.5 Mcg Inhaler] DULoxetine [Cymbalta] 30 mg PO DAILY 03/03/16 02/25/17 Hydroxyurea 500 mg PO DAILY 03/03/16 02/25/17 Rivaroxaban [Xarelto] 20 mg PO DAILY 03/03/16 02/25/17 hydrOXYzine pamoate [Hydroxyzine 50 mg PO DAILY PRN 03/03/16 02/25/17 Pamoate] risperiDONE [RisperDAL] 1 mg PO QPM 03/03/16 02/25/17 Calcitonin [Fortical] 1 sprays LUIS DAILY #1 bottle 12/11/16 02/25/17 Furosemide [Furosemide] 20 mg PO DAILY 02/25/17 02/25/17 - Allergies Allergies/Adverse Reactions: Allergies Allergy/AdvReac Type Severity Reaction Status Date / Time diphenhydramine HCl * Allergy Mild Rash Verified 02/25/17 11:52 [From Benadryl] morphine Allergy Mild Nausea Verified 02/25/17 11:52 iron dextran complex Allergy Unknown Verified 02/25/17 11:52 Review of Systems - Other Findings Other Findings: A comprehensive review of systems was performed the pertinent positives and negatives are stated above in the HPI and the remainder of the review of systems is negative. Exam - Vital Signs Reviewed Vital Signs: Yes Vital Signs: Vital Signs x48h Temp Pulse Pulse Resp BP Pulse Ox 02/25/17 15:59 36.3 C L 78 18 150/87 H 93 02/25/17 15:55 84 16 - Physical Exam General Appearance: positive: Alert, Mild distress (short of breath with exertion on O2), Anxious Eyes Bilateral: positive: Normal inspection, PERRL, EOMI, No lid inflammation, Conjunctivae nml, No scleral icterus ENT: positive: ENT inspection nml, Pharynx nml, Dry mucous membranes. negative : Purulent nasal drainage, Pharyngeal erythema, Oral lesions Neck: positive: Nml inspection, Thyroid nml, No JVD, Trachea midline. negative : Thyromegaly, Lymphadenopathy (R), Lymphadenopathy (L), Carotid bruit, Tracheal deviation Respiratory: positive: Chest non-tender, Wheezes (scattered) Cardiovascular: positive: Regular rate & rhythm, No murmur, No gallop Peripheral Pulses: positive: 2+ Abdomen: positive: Non-tender, No organomegaly, Nml bowel sounds, No distention. negative: Guarding, Rebound, Hepatomegaly Back: positive: Nml inspection. negative: CVA tenderness (R), CVA tenderness (L ) Skin: positive: Color nml, No rash. negative: Cyanosis, Pallor Extremities: positive: Non-tender, Full ROM, Nml appearance, No pedal edema Neurologic/Psychiatric: positive: Oriented x3, CN's nml (2-12), Motor nml, Sensation nml, Mood/affect nml Conclusion/Plan - Problem List (1) COPD exacerbation Conclusion/Plan: Patient presented with shortness of breath and weakness in her legs as well as generalized fatigue. The patient had no evidence of pneumonia or increased pulmonary congestion on x-ray. Patient's CT and U did not show any new pulmonary embolism and she is compliant with her treatment for previous PEs and DVTs. The patient was found to have wheezing and she was hypoxic on presentation. The patient likely had a viral URI given that she does have some increased mediastinal lymphadenopathy on her CT and has been having body aches and generalized weakness. The patient's flu swab was negative. The patient presented with a COPD exacerbation she was treated with nebs and steroids in the emergency department but will continue to be hypoxic and had not had significant improvement therefore she was admitted to the hospital for COPD exacerbation. Plan: Duo nebs scheduled 24 hours then as needed Solu-Medrol 40 mg 3 times daily IV azithromycin Supplemental oxygen Budesonide twice daily and formoterol twice daily (2) History of pulmonary embolism Conclusion/Plan: Patient has history of pulmonary embolism and is on Xarelto We will continue the patient's home dose of Xarelto Patient was previously on oxygen at home but stopped using oxygen on presentation she is hypoxic although she does appear to have a COPD exacerbation she may require home oxygen If patient continues to be hypoxic we will set up home oxygen prior to discharge (3) Essential thrombocytosis Conclusion/Plan: Patient is a history of essential thrombocytosis and is on hydroxyurea at home. In the past the patient has had issues with compliance to hydroxyurea however states that she is currently taking it. The patient will be continued on her home dose and we will continue to monitor her platelet levels. Stable (4) Hypertension Conclusion/Plan: Patient has history of hypertension. The patient's blood pressure is elevated on presentation she is on metoprolol and Lasix at home for blood pressure control. The patient will be on steroids while she is hospitalized which may increase her blood pressure further. While the patient is hospitalized we will monitor her blood pressure closely and titrate medications as needed. Qualifiers: Hypertension type: essential hypertension Qualified Code(s): I10 - Essential (primary) hypertension (5) Chronic pain Conclusion/Plan: Patient has chronic back pain from scoliosis and previous spinal surgery. Patient takes tramadol and Vicodin as needed at home. Patient's pain is currently controlled Patient will be continued on her home medications while she is hospitalized. (6) Anxiety Conclusion/Plan: The patient has a long history of anxiety and bipolar disorder. The patient is anxious on presentation. The patient will be continued on her home doses of Risperdal, Cymbalta and Klonopin. We will continue to monitor and we can add Xanax or Ativan if needed. - Lab Results Lab results reviewed: Yes Fish Bones: 02/25/17 12:41 02/25/17 12:41 Other Lab Results: Laboratory Results WBC 8.5 x10^3/uL (4.8-10.8) 02/25/17 12:41 RBC 4.64 10^6/uL (4.20-5.40) 02/25/17 12:41 Hgb 12.0 g/dL (12.0-16.0) 02/25/17 12:41 Hct 40.1 % (37.0-47.0) 02/25/17 12:41 MCV 86.4 fL (81.0-99.0) 02/25/17 12:41 MCH 25.8 pg (27.0-31.0) L 02/25/17 12:41 MCHC 29.9 g/dL (32.0-36.0) L 02/25/17 12:41 RDW 22.9 % (12.0-15.0) H 02/25/17 12:41 Plt Count 556 10^3/uL (130-450) H 02/25/17 12:41 MPV 9.5 fL (7.9-10.8) 02/25/17 12:41 Neut # 6.9 10^3/uL (1.5-6.6) H 02/25/17 12:41 Lymph # 0.3 10^3/uL (1.5-3.5) L 02/25/17 12:41 [place] # 1.1 10^3/uL (0.0-1.0) H 02/25/17 12:41 Eos # 0.1 10^3/uL (0.0-0.7) 02/25/17 12:41 Baso # 0.1 10^3/uL (0.0-0.1) 02/25/17 12:41 Absolute Nucleated RBC 0.04 x10^3/uL 02/25/17 12:41 Nucleated RBC % 0.5 /100WBC 02/25/17 12:41 Manual Slide Review Indicated 02/25/17 12:41 Platelet Estimate INCREASED (>450,000) (NORMAL) 02/25/17 12:41 Platelet Morphology NORMAL APPEARANCE (NORMAL) 02/25/17 12:41 RBC Morph Micro Appear 2+ ANISOCYTOSIS (NORMAL) 1+ HYPOCHROMASIA (NORMAL) 1 + OVALOCYTES (NORMAL) 02/25/17 12:41 RBC Morph Micro Appear 2+ ANISOCYTOSIS (NORMAL) 1+ HYPOCHROMASIA (NORMAL) 1 + OVALOCYTES (NORMAL) 02/25/17 12:41 RBC Morph Micro Appear 2+ ANISOCYTOSIS (NORMAL) 1+ HYPOCHROMASIA (NORMAL) 1 + OVALOCYTES (NORMAL) 02/25/17 12:41 Sodium 137 mmol/L (135-145) 02/25/17 12:41 Potassium 5.0 mmol/L (3.5-5.0) 02/25/17 12:41 Chloride 104 mmol/L (101-111) 02/25/17 12:41 Carbon Dioxide 24 mmol/L (21-32) 02/25/17 12:41 Anion Gap 9.0 (6-13) 02/25/17 12:41 BUN 51 mg/dL (6-20) H 02/25/17 12:41 Creatinine 1.4 mg/dL (0.4-1.0) H 02/25/17 12:41 Estimated GFR (MDRD) 38 (>89) L 02/25/17 12:41 Glucose 90 mg/dL (70-100) 02/25/17 12:41 Calcium 9.6 mg/dL (8.5-10.3) 02/25/17 12:41 Total Bilirubin 0.6 mg/dL (0.2-1.0) 02/25/17 12:41 AST 29 IU/L (10-42) 02/25/17 12:41 ALT 26 IU/L (10-60) 02/25/17 12:41 Alkaline Phosphatase 99 IU/L (42-121) 02/25/17 12:41 Troponin I < 0.04 ng/mL (<0.49) 02/25/17 12:41 Total Protein 7.6 g/dL (6.7-8.2) 02/25/17 12:41 Albumin 3.9 g/dL (3.2-5.5) 02/25/17 12:41 Globulin 3.7 g/dL (2.1-4.2) 02/25/17 12:41 Albumin/Globulin Ratio 1.1 (1.0-2.2) 02/25/17 12:41 Lipase 14 U/L (22-51) L 02/25/17 12:41 Influenza A (Rapid) Negative (Negative) 02/25/17 16:45 Influenza B (Rapid) Negative (Negative) 02/25/17 16:45 Influenza Types A,B Ag - 02/25/17 16:45 - Diagnostic Imaging Results Diagnostic Imaging Results: positive: Final report reviewed Diagnostic Imaging Results Comments: Chest x-ray Impression: 1. Stable mild cardiac enlargement 2. Clear lungs Chest/thoracic angiogram Impression: 1. No acute pulmonary arterial filling defects. 2. Chronic nonfilling of the right middle and lower lobe pulmonary arteries. 3. Irregular right lung opacity, mostly in the right lower lobe, similar to the most recent prior CT. 4. Interval development of mediastinal lymphadenopathy. - EKG Results EKG Interpreted Independently: Yes EKG Comparison: Changed from prior EKG EKG Findings: Decreased T-wave inversions with nonspecific changes Core Measures - Anticipated LOS I expect patient to be DC'd or transferred within 96 hours.: Yes - DVT/VTE - Prophylaxis VTE/DVT Device ordered at admit?: Yes
[2017-02-25] MEDS: traMADol 50 MG TABLET PO PRN (19:08)
[2017-02-25] MEDS: BUDESONIDE 0.5 MG/2 ML NEB INH SCH (19:54)
[2017-02-25] MEDS: clonazePAM 0.5 MG TABLET PO PRN (20:26)
[2017-02-25] MEDS: risperiDONE 1 MG TABLET PO SCH (20:26)
[2017-02-25] MEDS: MIRTAZAPINE 15 MG TABLET PO SCH (20:26)
[2017-02-25] MEDS: methylPREDNISolone SUCCINATE 40 MG/ML VIAL IVP SCH (21:23)
[2017-02-25] MEDS: SODIUM CHLORIDE FLUSH 0.9% 10 ML SYRINGE IVP PRN (21:23)
[2017-02-25] MEDS: SODIUM CHLORIDE FLUSH 0.9% 10 ML SYRINGE IVP SCH (21:23)
[2017-02-26] MEDS: ZOLPIDEM 5 MG TABLET PO PRN ×2 (00:24→23:55)
[2017-02-26] MEDS: SODIUM CHLORIDE FLUSH 0.9% 10 ML SYRINGE IVP SCH ×3 (06:07→19:14)
[2017-02-26] MEDS: methylPREDNISolone SUCCINATE 40 MG/ML VIAL IVP SCH ×3 (06:07→21:06)
[2017-02-26] MEDS: PANTOPRAZOLE 40 MG TABLET PO SCH (06:09)
[2017-02-26] MEDS: HYDROcod/ACETAM 5/325 MG TABLET PO PRN ×3 (06:09→16:06)
[2017-02-26] MEDS: clonazePAM 0.5 MG TABLET PO PRN (06:09)
[2017-02-26 06:12] LABS: BASOPHILS % (AUTO) 0.2 %; HGB - HEMOGLOBIN 11.3 g/dL (12.0-16.0); LYMPHOCYTES # (AUTO) 0.1 10^3/uL (1.5-3.5); LYMPHOCYTES % (AUTO) 1.2 %; MEAN CORPUSCULAR HEMOGLOBIN 25.6 pg (27.0-31.0); MEAN CORPUSCULAR HGB CONC 29.8 g/dL (32.0-36.0); MEAN CORPUSCULAR VOLUME 85.8 fL (81.0-99.0); MEAN PLATELET VOLUME 9.8 fL (7.9-10.8); MONOCYTES # (AUTO) 0.1 10^3/uL (0.0-1.0); MONOCYTES % (AUTO) 1.2 %; NEUTROPHILS % (AUTO) 97.4 %; PLT - PLATELET COUNT 551 10^3/uL (130-450); RED BLOOD COUNT 4.41 10^6/uL (4.20-5.40); RED CELL DISTRIBUTION WIDTH 22.6 % (12.0-15.0); WHITE BLOOD COUNT 6.2 x10^3/uL (4.8-10.8)
[2017-02-26 06:22] LABS: CREATININE 1.6 mg/dL (0.4-1.0)
[2017-02-26 07:02] LABS: PLATELET ESTIMATE, MANUAL INCREASED (>450,000) (NORMAL); PLATELET MORPHOLOGY 1+ GIANT PLATELETS (NORMAL)
[2017-02-26] MEDS: RIVAROXABAN 10 MG TABLET PO SCH (07:53)
[2017-02-26] MEDS: ACETAMINOPHEN 325 MG TABLET PO PRN (07:53)
[2017-02-26] MEDS: BUDESONIDE 0.5 MG/2 ML NEB INH SCH ×3 (08:42→20:35)
[2017-02-26] MEDS: IPRATROPIUM/ALBUTEROL 3 ML NEB INH SCH (09:35)
--- NOTE | 2017-02-26 09:38 | CT Preliminary Report ---
Exam: CT HEAD W/O IMPRESSION: Generalized age-related cortical atrophic changes without evidence of acute intracranial abnormality. [facility] SITE ID: [id number]
--- NOTE | 2017-02-26 09:38 | CT Report ---
EXAM: CT HEAD EXAM DATE: 02/26/2017 09:27 AM. CLINICAL HISTORY: AMS, history of CVA. COMPARISON: CT head 12/11/2016.. TECHNIQUE: Multiaxial CT images were obtained from the foramen magnum to the vertex. Reformats: Coron al. IV contrast: None. In accordance with CT protocol optimization, one or more of the following dose reduction techniques w ere utilized for this exam: automated exposure control, adjustment of mA and/or KV based on patient s ize, or use of iterative reconstructive technique. FINDINGS: Parenchyma: No intraparenchymal hemorrhage. No evidence of mass, midline shift, or CT findings of acu te infarction. Padilla-white differentiation is distinct. Diffuse chronic microangiopathic white matter changes are evident. Extraaxial Spaces: Normal for age. No subdural or epidural collections identified. Ventricles: The ventricles and cortical sulci are enlarged, consistent with age-related tissue loss. Sinuses and orbits: Imaged paranasal sinuses, orbits, and mastoids show no significant abnormality. Bones: No evidence of fracture or calvarial defect. Other: None. IMPRESSION: Generalized age-related cortical atrophic changes without evidence of acute intracranial abnormality. [facility] Referring Provider Line: [phone] SITE ID: [id number]
[2017-02-26 09:54] LABS: ABG BASE EXCESS -5.4 mmol/L (-2.0-3.0); ABG HCO3 20.2 mmol/L (22.0-26.0); ABG PCO2 40 mmHg (34-45); ABG PH 7.33 (7.35-7.45); ABG TCO2 21.4 MMOL/L (21.0-29.0)
[2017-02-26 09:58] LABS: ABG OXYGEN SATURATION 76 % (94-98); ABG PO2 45 mmHg (80-100)
[2017-02-26] MEDS: SODIUM CHLORIDE FLUSH 0.9% 10 ML SYRINGE IVP PRN ×5 (10:05→21:06)
[2017-02-26] MEDS: AZITHROMYCIN INJ 500 MG in SODIUM CHLORIDE 0.9% 250 ML IV SCH (10:05)
[2017-02-26] MEDS: METOPROLOL SUCCINATE 25 MG TABLET PO SCH (10:13)
[2017-02-26] MEDS: HYDROXYUREA 500 MG CAPSULE PO SCH (10:13)
[2017-02-26] MEDS: DULoxetine 30 MG CAPSULE PO SCH (10:13)
[2017-02-26] MEDS: CALCITONIN NASAL SPRAY NAS SCH (10:15)
[2017-02-26] MEDS: POLYETHYLENE GLYCOL 3350 17 GM PACKET PO SCH (10:17)
[2017-02-26] MEDS ORDERED: FUROSEMIDE 40 MG/4 ML VIAL IVP ONE (10:26)
--- NOTE | 2017-02-26 10:57 | XRAY Report ---
EXAM: CHEST RADIOGRAPHY EXAM DATE: 02/26/2017 10:43 AM. CLINICAL HISTORY: Bilateral rales. COMPARISON: 02/25/[address] chest 02/25/2017. TECHNIQUE: 2 views. FINDINGS: Lungs/Pleura: Mild patchy opacity at the right midlung and left lung base. No convincing pleural effu irving or pneumothorax. Mediastinum: Heart and mediastinum appear stable. Other: None. IMPRESSION: Mild patchy opacity at the right midlung and left lung base. [facility] Referring Provider Line: [phone] SITE ID: [id number]
[2017-02-26 11:49] LABS: COCAINE SCREEN URINE NEGATIVE (NEGATIVE); MUDS CUTOFF CONCENTRATIONS CUTOFF CONC BELOW:
[2017-02-26 11:50] LABS: AMPHETAMINE SCREEN,URINE NEGATIVE (NEGATIVE); BENZODIAZEPINES SCREEN, URINE NEGATIVE (NEGATIVE); METHADONE SCREEN, URINE NEGATIVE (NEGATIVE); METHAMPHETAMINES SCREEN, URINE NEGATIVE (NEGATIVE); OPIATE SCREEN, URINE POSITIVE (NEGATIVE); OXYCODONE SCREEN, URINE NEGATIVE (NEGATIVE); PROPOXYPHENE SCREEN, URINE NEGATIVE (NEGATIVE); TRICYCLIC ANTIDEPRESSANT,URINE NEGATIVE (NEGATIVE)
[2017-02-26] MEDS: traMADol 50 MG TABLET PO PRN ×2 (14:05→19:11)
--- NOTE | 2017-02-26 18:12 | PROVIDER PROGRESS NOTE ---
Subjective - Prog Note Date Prog Note Date: 02/26/17 Prog Note Time: 08:00 - Subjective Pt reports feeling: Worse Subjective: Aurelia is attempting to eat breakfast and is very minimal in her responses. She denies chest pain, N/V/D or a new or increased cough. Current Medications - Current Medications Current Medications: Active Medications Acetaminophen (Tylenol) 650 mg PO Q4HR PRN PRN Reason: Pain 1 to 4 Last Admin: 02/26/17 07:53 Dose: 650 mg Acetaminophen/Hydrocodone Bitart ([place] 5/325) 1 tab PO Q4HR PRN PRN Reason: Pain 5 to 7 Last Admin: 02/26/17 16:06 Dose: 1 tab Acetaminophen/Hydrocodone Bitart ([place] 10 Mg/325 Mg) 1 tab PO Q4HR PRN PRN Reason: Pain 8 to 10 Last Admin: 02/25/17 20:26 Dose: 1 tab Albuterol () 2.5 mg INH RTQ4H PRN PRN Reason: Wheezing Budesonide (Pulmicort) 0.5 mg INH RTBID [facility] Last Admin: 02/26/17 09:35 Dose: 0.5 mg Calcitonin [place] (Fortical) 1 sprays LUIS DAILY [facility] Last Admin: 02/26/17 10:15 Dose: 1 spr Clonazepam (Klonopin) 1 mg PO BID PRN PRN Reason: Anxiety Last Admin: 02/26/17 06:09 Dose: 1 mg Duloxetine HCl (Cymbalta) 30 mg PO DAILY [facility] Last Admin: 02/26/17 10:13 Dose: 30 mg Formoterol Fumarate (Perforomist) 20 mcg INH RTBID [place] Furosemide (Lasix Inj 40 Mg Vial) 40 mg IVP BIDDIURETIC [place] Hydroxyurea (Hydrea) 500 mg PO DAILY [facility] Last Admin: 02/26/17 10:13 Dose: 500 mg Hydroxyzine Pamoate (Vistaril) 50 mg PO DAILY PRN PRN Reason: NEEDED PER PROVIDER ORDERS Azithromycin 500 mg/ Sodium (Chloride) 250 mls @ 250 mls/hr IV DAILY [facility] Last Infusion: 02/26/17 11:05 Dose: Infused Methylprednisolone (Solu-Medrol (40mg Vial)) 60 mg IVP TID [facility] Last Admin: 02/26/17 14:06 Dose: 60 mg Metoprolol Succinate (Toprol Xl) 25 mg PO DAILY [facility] Last Admin: 02/26/17 10:13 Dose: 25 mg Mirtazapine (Remeron) 15 mg PO QPM [facility] Last Admin: 02/25/17 20:26 Dose: 15 mg Ondansetron HCl (Zofran Inj) 4 mg IVP Q6HR PRN PRN Reason: Nausea / Vomiting Pantoprazole Sodium (Protonix) 40 mg PO QDAC [facility] Last Admin: 02/26/17 06:09 Dose: 40 mg Polyethylene Glycol (Miralax) 17 gm PO DAILY [facility] Last Admin: 02/26/17 10:17 Dose: Not Given Prochlorperazine Edisylate (Compazine Inj) 10 mg IVP Q6HR PRN PRN Reason: Nausea / Vomiting Promethazine HCl (Phenergan Inj) 25 mg IM Q6HR PRN PRN Reason: Nausea / Vomiting Risperidone (Risperdal) 1 mg PO QPM [facility] Last Admin: 02/25/17 20:26 Dose: 1 mg [facility]ar[facility] ([facility]) [facility] [place] Admin: 02/26/17 07:53 Dose: 20 mg Sodium Chloride (Normal Saline Flush 0.9%) 10 ml IVP PRN PRN PRN Reason: NEEDED PER PROVIDER ORDERS Last Admin: 02/26/17 11:27 Dose: 10 ml Sodium Chloride (Normal Saline Flush 0.9%) 10 ml IVP Q8HR [facility] Last Admin: 02/26/17 14:08 Dose: 10 ml Tramadol HCl (Ultram) 50 mg PO QID PRN PRN Reason: Analgesia Last Admin: 02/26/17 14:05 Dose: 50 mg Zolpidem Tartrate (Ambien) 5 mg PO QPM PRN PRN Reason: Insomnia Last Admin: 02/26/17 00:24 Dose: 5 mg clonazePAM [Klonopin] 0.5 - 1 mg PO TID PRN 10/01/12 Mirtazapine [Remeron] 30 mg PO QPM 05/19/14 traMADol [Ultram] 50 mg PO QID PRN 08/17/15 Omeprazole 20 mg PO BID 12/30/15 Metoprolol Succinate 25 mg PO DAILY 01/13/16 Albuterol Sulf [Ventolin Hfa Inhaler] 2 puffs INH Q4H PRN 03/03/16 Budesonide/Formoterol Fumarate [Symbicort 160-4.5 Mcg Inhaler] 2 puffs INH BID 03/03/16 DULoxetine [Cymbalta] 30 mg PO DAILY 03/03/16 Hydroxyurea 500 mg PO DAILY 03/03/16 Rivaroxaban [Xarelto] 20 mg PO DAILY 03/03/16 hydrOXYzine pamoate [Hydroxyzine Pamoate] 50 mg PO DAILY PRN 03/03/16 risperiDONE [RisperDAL] 1 mg PO QPM 03/03/16 Furosemide [Furosemide] 20 mg PO DAILY 02/25/17 Objective - Vital Signs/Intake & Output Reviewed Vital Signs: Yes Vital Signs: Vital Signs x48h Temp Pulse Resp BP Pulse Ox 02/26/17 17:57 91 L 02/26/17 15:44 36.3 C L 79 18 127/81 H 95 02/26/17 13:51 36.3 C L 77 14 121/72 02/26/17 12:00 95 02/26/17 11:00 93 02/26/17 10:27 93 Intake & Output: Intake & Output 02/23/17 02/24/17 02/25/17 02/26/17 23:59 23:59 23:59 23:59 Intake Total 1540 990 Output Total 750 Balance 1540 240 - Objective General Appearance: positive: Moderate distress, Anxious, Lethargic Eyes Bilateral: positive: Normal inspection ENT: positive: ENT inspection nml, Dry mucous membranes Neck: positive: No JVD, Trachea midline Respiratory: positive: Chest non-tender, Wheezes, Rales, Rhonchi, Other ( respiratory distress with low oxygen in the abscence of a cough.) Cardiovascular: positive: No gallop, Irregularly irregular, Systolic murmur, Decreased pulse(s) Peripheral Pulses: 1+ Radial (R), 1+ Radial (L) Abdomen: positive: Non-tender, No organomegaly, Nml bowel sounds, No distention , Other (rounded, soft.) Back: positive: Nml inspection Skin: positive: No rash, Warm, Dry, Diaphoresis (flushed cheeks.), Pallor Extremities: positive: Non-tender, Pedal edema, Calf tenderness Neurologic/Psychiatric: positive: Oriented x3, CN's nml (2-12), Weakness, Sensory loss, Depressed mood/affect Reflexes: Bicep (R): 2+, Bicep (L): 2+ - Lab Results Fish Bones: 02/27/17 05:27 02/27/17 05:27 Other Labs: Lab Results x24hrs 02/26/17 02/26/17 02/26/17 Range/Units 11:33 10:10 10:10 WBC (4.8-10.8) x10^3/uL RBC (4.20-5.40) 10^6/uL Hgb (12.0-16.0) g/dL Hct (37.0-47.0) % MCV (81.0-99.0) fL MCH (27.0-31.0) pg MCHC (32.0-36.0) g/dL RDW (12.0-15.0) % Plt Count (130-450) 10^3/uL MPV (7.9-10.8) fL Neut # (1.5-6.6) 10^3/uL Lymph # (1.5-3.5) 10^3/uL [place] # (0.0-1.0) 10^3/uL Eos # (0.0-0.7) 10^3/uL Baso # (0.0-0.1) 10^3/uL Absolute Nucleated RBC x10^3/uL Nucleated RBC % /100WBC Manual Slide Review WBC Morphology (NORMAL) Platelet Estimate (NORMAL) Platelet Morphology (NORMAL) RBC Morph Micro Appear (NORMAL) D-Dimer 977.9 H (200.0-255.0) ng/mL Bld Gas Analysis Time Sample Site Patient Temperature CELSIUS ABG pH (7.35-7.45) ABG pCO2 (34-45) mmHg ABG pO2 (80-100) mmHg ABG HCO3 (22.0-26.0) mmol/L ABG Total CO2 (21.0-29.0) MMOL/L ABG O2 Saturation (94-98) % ABG Oximetry Spot Check % ABG Base Excess (-2.0-3.0) mmol/L Brian Test O2 Delivery Device O2 Liters/Min LPM Sodium (135-145) mmol/L Potassium (3.5-5.0) mmol/L Chloride (101-111) mmol/L Carbon Dioxide (21-32) mmol/L Anion Gap (6-13) BUN (6-20) mg/dL Creatinine (0.4-1.0) mg/dL Estimated GFR (MDRD) (>89) Glucose (70-100) mg/dL Calcium (8.5-10.3) mg/dL Total Creatine Kinase (22-269) IU/L Troponin I (<0.49) ng/mL B-Natriuretic Peptide (5-100) pg/mL TSH 0.61 (0.34-5.60) uIU/mL Urine Opiates Screen POSITIVE H (NEGATIVE) Ur Oxycodone Screen NEGATIVE (NEGATIVE) Urine Methadone Screen NEGATIVE (NEGATIVE) Ur Propoxyphene Screen NEGATIVE (NEGATIVE) Ur Barbiturates Screen NEGATIVE (NEGATIVE) Ur Tricyclics Screen NEGATIVE (NEGATIVE) Ur Phencyclidine Scrn NEGATIVE (NEGATIVE) Ur Amphetamine Screen NEGATIVE (NEGATIVE) U Methamphetamines Scrn NEGATIVE (NEGATIVE) U Benzodiazepines Scrn NEGATIVE (NEGATIVE) Urine Cocaine Screen NEGATIVE (NEGATIVE) U Cannabinoids Screen NEGATIVE (NEGATIVE) 02/26/17 02/26/17 02/26/17 Range/Units 10:10 10:10 09:45 WBC (4.8-10.8) x10^3/uL RBC (4.20-5.40) 10^6/uL Hgb (12.0-16.0) g/dL Hct (37.0-47.0) % MCV (81.0-99.0) fL MCH (27.0-31.0) pg MCHC (32.0-36.0) g/dL RDW (12.0-15.0) % Plt Count (130-450) 10^3/uL MPV (7.9-10.8) fL Neut # (1.5-6.6) 10^3/uL Lymph # (1.5-3.5) 10^3/uL [place] # (0.0-1.0) 10^3/uL Eos # (0.0-0.7) 10^3/uL Baso # (0.0-0.1) 10^3/uL Absolute Nucleated RBC x10^3/uL Nucleated RBC % /100WBC Manual Slide Review WBC Morphology (NORMAL) Platelet Estimate (NORMAL) Platelet Morphology (NORMAL) RBC Morph Micro Appear (NORMAL) D-Dimer (200.0-255.0) ng/mL Bld Gas Analysis Time 0952 Sample Site RIGHT BRACHIAL Patient Temperature 36.0 CELSIUS ABG pH 7.33 L (7.35-7.45) ABG pCO2 40 (34-45) mmHg ABG pO2 45 L* (80-100) mmHg ABG HCO3 20.2 L (22.0-26.0) mmol/L ABG Total CO2 21.4 (21.0-29.0) MMOL/L ABG O2 Saturation 76 L* (94-98) % ABG Oximetry Spot Check 84 % ABG Base Excess -5.4 L (-2.0-3.0) mmol/L Brian Test NOT APPLICABLE O2 Delivery Device NASAL CANNULA O2 Liters/Min 5.00 LPM Sodium (135-145) mmol/L Potassium (3.5-5.0) mmol/L Chloride (101-111) mmol/L Carbon Dioxide (21-32) mmol/L Anion Gap (6-13) BUN (6-20) mg/dL Creatinine (0.4-1.0) mg/dL Estimated GFR (MDRD) (>89) Glucose (70-100) mg/dL Calcium (8.5-10.3) mg/dL Total Creatine Kinase 25 (22-269) IU/L Troponin I < 0.04 (<0.49) ng/mL B-Natriuretic Peptide (5-100) pg/mL TSH (0.34-5.60) uIU/mL Urine Opiates Screen (NEGATIVE) Ur Oxycodone Screen (NEGATIVE) Urine Methadone Screen (NEGATIVE) Ur Propoxyphene Screen (NEGATIVE) Ur Barbiturates Screen (NEGATIVE) Ur Tricyclics Screen (NEGATIVE) Ur Phencyclidine Scrn (NEGATIVE) Ur Amphetamine Screen (NEGATIVE) U Methamphetamines Scrn (NEGATIVE) U Benzodiazepines Scrn (NEGATIVE) Urine Cocaine Screen (NEGATIVE) U Cannabinoids Screen (NEGATIVE) 02/26/17 02/26/17 02/26/17 Range/Units 05:44 05:44 05:44 WBC 6.2 (4.8-10.8) x10^3/uL RBC 4.41 (4.20-5.40) 10^6/uL Hgb 11.3 L (12.0-16.0) g/dL Hct 37.9 (37.0-47.0) % MCV 85.8 (81.0-99.0) fL MCH 25.6 L (27.0-31.0) pg MCHC 29.8 L (32.0-36.0) g/dL RDW 22.6 H (12.0-15.0) % Plt Count 551 H (130-450) 10^3/uL MPV 9.8 (7.9-10.8) fL Neut # 6.0 (1.5-6.6) 10^3/uL Lymph # 0.1 L (1.5-3.5) 10^3/uL [place] # 0.1 (0.0-1.0) 10^3/uL Eos # 0.0 (0.0-0.7) 10^3/uL Baso # 0.0 (0.0-0.1) 10^3/uL Absolute Nucleated RBC 0.04 x10^3/uL Nucleated RBC % 0.7 /100WBC Manual Slide Review Indicated WBC Morphology 1+ HYPERSEG NEUT (NORMAL) Platelet Estimate INCREASED (>450,000) (NORMAL) Platelet Morphology 1+ GIANT PLATELETS (NORMAL) RBC Morph Micro Appear 1+ TEARDROP CELLS (NORMAL) D-Dimer (200.0-255.0) ng/mL Bld Gas Analysis Time Sample Site Patient Temperature CELSIUS ABG pH (7.35-7.45) ABG pCO2 (34-45) mmHg ABG pO2 (80-100) mmHg ABG HCO3 (22.0-26.0) mmol/L ABG Total CO2 (21.0-29.0) MMOL/L ABG O2 Saturation (94-98) % ABG Oximetry Spot Check % ABG Base Excess (-2.0-3.0) mmol/L Brian Test O2 Delivery Device O2 Liters/Min LPM Sodium 136 (135-145) mmol/L Potassium 5.4 H (3.5-5.0) mmol/L Chloride 102 (101-111) mmol/L Carbon Dioxide 25 (21-32) mmol/L Anion Gap 9.0 (6-13) BUN 48 H (6-20) mg/dL Creatinine 1.6 H (0.4-1.0) mg/dL Estimated GFR (MDRD) 32 L (>89) Glucose 161 H (70-100) mg/dL Calcium 9.0 (8.5-10.3) mg/dL Total Creatine Kinase (22-269) IU/L Troponin I (<0.49) ng/mL B-Natriuretic Peptide 780 H (5-100) pg/mL TSH (0.34-5.60) uIU/mL Urine Opiates Screen (NEGATIVE) Ur Oxycodone Screen (NEGATIVE) Urine Methadone Screen (NEGATIVE) Ur Propoxyphene Screen (NEGATIVE) Ur Barbiturates Screen (NEGATIVE) Ur Tricyclics Screen (NEGATIVE) Ur Phencyclidine Scrn (NEGATIVE) Ur Amphetamine Screen (NEGATIVE) U Methamphetamines Scrn (NEGATIVE) U Benzodiazepines Scrn (NEGATIVE) Urine Cocaine Screen (NEGATIVE) U Cannabinoids Screen (NEGATIVE) - Diagnostic Imaging Diagnostic Imaging Results: positive: Prelim report reviewed, Final report reviewed Assessment/Plan - Problem List (1) Pulmonary hypertension Impression: Patient presented with shortness of breath and weakness in her legs as well as generalized fatigue. The patient had no evidence of pneumonia or increased pulmonary congestion on x-ray. A chest CT did not show any new pulmonary embolism. As per last echocardiogram that was complete in 10/2016, patient has abnormally elevated pulmonary pressures. Plan: Continue Duo nebs, as needed, Solu-Medrol 40 mg 3 times daily, IV azithromycin, Supplemental oxygen, Budesonide twice daily and formoterol twice daily (2) COPD exacerbation Impression: Patient presented with shortness of breath and weakness in her legs as well as generalized fatigue. The patient had no evidence of pneumonia or increased pulmonary congestion on x-ray. A chest CT did not show any new pulmonary embolism. As per last echocardiogram that was complete in 10/2016, patient has abnormally elevated pulmonary pressures. This is likely a consequence of her longstanding COPD. Plan: Continue Duo nebs, as needed, Solu-Medrol 40 mg 3 times daily, IV azithromycin, Supplemental oxygen, Budesonide twice daily and formoterol twice daily (3) Altered mental status, unspecified Impression: Patient was very somnolent upon exam today with noted AMS. She was breathing in a shallow pattern. Plan: Support respiratory status and monitor. (4) Chronic pain Impression: Patient has chronic back pain from scoliosis and previous spinal surgery. Patient takes tramadol and Vicodin as needed at home. Today, the patient notes her pain to be currently controlled Plan: Patient will be continued on her home medications while she is hospitalized, providing her respiratory status does not become compromised.. (5) History of pulmonary embolism Impression: Patient has history of pulmonary embolism and is on Xarelto. Patient was previously on oxygen at home but stopped using oxygen on presentation. Plan: We will set up home oxygen prior to discharge. (6) Essential thrombocytosis Impression: Patient is a history of essential thrombocytosis and is on hydroxyurea at home. In the past the patient has had issues with compliance to hydroxyurea however states that she is currently taking it. Plan: Continue on her home dose and monitor her platelet levels. (7) Hypertension Qualifiers: Hypertension type: essential hypertension Qualified Code(s): I10 - Essential (primary) hypertension (8) Anxiety Impression: The patient has a long history of anxiety and bipolar disorder. The patient is anxious on presentation. The patient will be continued on her home doses of Risperdal, Cymbalta and Klonopin. Plan: We will continue to monitor and we can add Xanax or Ativan if needed.
[2017-02-26] MEDS: FUROSEMIDE 40 MG/4 ML VIAL IVP SCH (19:14)
[2017-02-26] MEDS: FORMOTEROL FUMARATE NEB 20 MCG/2 ML INH SCH (20:35)
[2017-02-26] MEDS: HYDROcod/ACETAM 10 MG/325 MG TABLET PO PRN (21:06)
[2017-02-26] MEDS: risperiDONE 1 MG TABLET PO SCH (21:06)
[2017-02-26] MEDS: MIRTAZAPINE 15 MG TABLET PO SCH (21:06)
[2017-02-27 05:52] LABS: ALBUMIN 3.6 g/dL (3.2-5.5); ALBUMIN/GLOBULIN RATIO 1.1 (1.0-2.2); BILIRUBIN,TOTAL 0.5 mg/dL (0.2-1.0); CALCIUM 9.3 mg/dL (8.5-10.3); CREATININE 1.2 mg/dL (0.4-1.0); TOTAL PROTEIN 6.9 g/dL (6.7-8.2)
[2017-02-27 05:54] LABS: BASOPHILS % (AUTO) 0.3 %; HGB - HEMOGLOBIN 11.2 g/dL (12.0-16.0); LYMPHOCYTES # (AUTO) 0.1 10^3/uL (1.5-3.5); LYMPHOCYTES % (AUTO) 0.5 %; MEAN CORPUSCULAR HEMOGLOBIN 25.2 pg (27.0-31.0); MEAN CORPUSCULAR HGB CONC 29.5 g/dL (32.0-36.0); MEAN CORPUSCULAR VOLUME 85.6 fL (81.0-99.0); MEAN PLATELET VOLUME 9.9 fL (7.9-10.8); MONOCYTES # (AUTO) 0.3 10^3/uL (0.0-1.0); MONOCYTES % (AUTO) 1.9 %; NEUTROPHILS # (AUTO) 13.3 10^3/uL (1.5-6.6); NEUTROPHILS % (AUTO) 97.3 %; PLT - PLATELET COUNT 577 10^3/uL (130-450); RED BLOOD COUNT 4.45 10^6/uL (4.20-5.40); RED CELL DISTRIBUTION WIDTH 22.3 % (12.0-15.0); WHITE BLOOD COUNT 13.7 x10^3/uL (4.8-10.8)
[2017-02-27] MEDS: PANTOPRAZOLE 40 MG TABLET PO SCH (06:13)
[2017-02-27] MEDS: methylPREDNISolone SUCCINATE 40 MG/ML VIAL IVP SCH ×3 (06:13→21:49)
[2017-02-27] MEDS: FUROSEMIDE 40 MG/4 ML VIAL IVP SCH ×2 (06:19→13:49)
[2017-02-27] MEDS: SODIUM CHLORIDE FLUSH 0.9% 10 ML SYRINGE IVP PRN (06:19)
[2017-02-27] MEDS: SODIUM CHLORIDE FLUSH 0.9% 10 ML SYRINGE IVP SCH ×3 (06:19→21:49)
[2017-02-27] MEDS: HYDROcod/ACETAM 10 MG/325 MG TABLET PO PRN ×3 (06:44→19:55)
[2017-02-27] MEDS: FORMOTEROL FUMARATE NEB 20 MCG/2 ML INH SCH ×2 (07:20→21:22)
[2017-02-27] MEDS: ALBUTEROL NEB 2.5 MG/3 ML INH PRN ×2 (07:20→21:20)
[2017-02-27] MEDS: BUDESONIDE 0.5 MG/2 ML NEB INH SCH ×2 (07:20→21:20)
[2017-02-27] MEDS: AZITHROMYCIN INJ 500 MG in SODIUM CHLORIDE 0.9% 250 ML IV SCH (08:51)
[2017-02-27] MEDS: RIVAROXABAN 10 MG TABLET PO SCH (08:52)
[2017-02-27] MEDS: HYDROXYUREA 500 MG CAPSULE PO SCH (08:52)
[2017-02-27] MEDS: DULoxetine 30 MG CAPSULE PO SCH (08:52)
[2017-02-27] MEDS: METOPROLOL SUCCINATE 25 MG TABLET PO SCH (08:53)
[2017-02-27] MEDS: CALCITONIN NASAL SPRAY NAS SCH (08:53)
[2017-02-27] MEDS: POLYETHYLENE GLYCOL 3350 17 GM PACKET PO SCH (08:54)
[2017-02-27] MEDS: traMADol 50 MG TABLET PO PRN ×2 (09:13→18:05)
[2017-02-27] MEDS: clonazePAM 0.5 MG TABLET PO PRN ×2 (09:13→21:48)
--- NOTE | 2017-02-27 12:20 | PROVIDER PROGRESS NOTE ---
Subjective - Prog Note Date Prog Note Date: 02/27/17 Prog Note Time: 12:19 - Subjective Pt reports feeling: Improved Subjective: Patient had several questions about echocardiogram and child day care provider was at her bedside. She denies SOB, cough, N/V or chest pain. Current Medications - Current Medications Current Medications: Active Medications Acetaminophen (Tylenol) 650 mg PO Q4HR PRN PRN Reason: Pain 1 to 4 Last Admin: 02/26/17 07:53 Dose: 650 mg Acetaminophen/Hydrocodone Bitart ([place] 5/325) 1 tab PO Q4HR PRN PRN Reason: Pain 5 to 7 Last Admin: 02/26/17 16:06 Dose: 1 tab Acetaminophen/Hydrocodone Bitart ([place] 10 Mg/325 Mg) 1 tab PO Q4HR PRN PRN Reason: Pain 8 to 10 Last Admin: 02/27/17 06:44 Dose: 1 tab Albuterol () 2.5 mg INH RTQ4H PRN PRN Reason: Wheezing Last Admin: 02/27/17 07:20 Dose: 2.5 mg Budesonide (Pulmicort) 0.5 mg INH RTBID [facility] Last Admin: 02/27/17 07:20 Dose: 0.5 mg Calcitonin [place] (Fortical) 1 sprays LUIS DAILY [facility] Last Admin: 02/27/17 08:53 Dose: 1 spr Clonazepam (Klonopin) 1 mg PO BID PRN PRN Reason: Anxiety Last Admin: 02/27/17 09:13 Dose: 1 mg Duloxetine HCl (Cymbalta) 30 mg PO DAILY [facility] Last Admin: 02/27/17 08:52 Dose: 30 mg Formoterol Fumarate (Perforomist) 20 mcg INH RTBID [facility] Last Admin: 02/27/17 07:20 Dose: 20 mcg Furosemide (Lasix Inj 40 Mg Vial) 40 mg IVP BIDDIURETIC [facility] Last Admin: 02/27/17 06:19 Dose: 40 mg Hydroxyurea (Hydrea) 500 mg PO DAILY [facility] Last Admin: 02/27/17 08:52 Dose: 500 mg Hydroxyzine Pamoate (Vistaril) 50 mg PO DAILY PRN PRN Reason: NEEDED PER PROVIDER ORDERS Azithromycin 500 mg/ Sodium (Chloride) 250 mls @ 250 mls/hr IV DAILY [facility] Last Admin: 02/27/17 08:51 Dose: 250 mls/hr Methylprednisolone (Solu-Medrol (40mg Vial)) 60 mg IVP TID [facility] Last Admin: 02/27/17 06:13 Dose: 60 mg Metoprolol Succinate (Toprol Xl) 25 mg PO DAILY [facility] Last Admin: 02/27/17 08:53 Dose: 25 mg Mirtazapine (Remeron) 15 mg PO QPM [facility] Last Admin: 02/26/17 21:06 Dose: 15 mg Ondansetron HCl (Zofran Inj) 4 mg IVP Q6HR PRN PRN Reason: Nausea / Vomiting Pantoprazole Sodium (Protonix) 40 mg PO QDAC [facility] Last Admin: 02/27/17 06:13 Dose: 40 mg Polyethylene Glycol (Miralax) 17 gm PO DAILY [facility] Last Admin: 02/27/17 08:54 Dose: 17 gm Prochlorperazine Edisylate (Compazine Inj) 10 mg IVP Q6HR PRN PRN Reason: Nausea / Vomiting Promethazine HCl (Phenergan Inj) 25 mg IM Q6HR PRN PRN Reason: Nausea / Vomiting Risperidone (Risperdal) 1 mg PO QPM [facility] Last Admin: 02/26/17 21:06 Dose: 1 mg [facility]arox[facility] ([facility]) [facility] [place] Last Admin: 02/27/17 08:52 Dose: 20 mg Sodium Chloride (Normal Saline Flush 0.9%) 10 ml IVP PRN PRN PRN Reason: NEEDED PER PROVIDER ORDERS Last Admin: 02/27/17 06:19 Dose: 10 ml Sodium Chloride (Normal Saline Flush 0.9%) 10 ml IVP Q8HR [facility] Last Admin: 02/27/17 06:19 Dose: 10 ml Tramadol HCl (Ultram) 50 mg PO QID PRN PRN Reason: Analgesia Last Admin: 02/27/17 09:13 Dose: 50 mg Zolpidem Tartrate (Ambien) 5 mg PO QPM PRN PRN Reason: Insomnia Last Admin: 02/26/17 23:55 Dose: 5 mg clonazePAM [Klonopin] 0.5 - 1 mg PO TID PRN 10/01/12 Mirtazapine [Remeron] 30 mg PO QPM 05/19/14 traMADol [Ultram] 50 mg PO QID PRN 08/17/15 Omeprazole 20 mg PO BID 12/30/15 Metoprolol Succinate 25 mg PO DAILY 01/13/16 Albuterol Sulf [Ventolin Hfa Inhaler] 2 puffs INH Q4H PRN 03/03/16 Budesonide/Formoterol Fumarate [Symbicort 160-4.5 Mcg Inhaler] 2 puffs INH BID 03/03/16 DULoxetine [Cymbalta] 30 mg PO DAILY 03/03/16 Hydroxyurea 500 mg PO DAILY 03/03/16 Rivaroxaban [Xarelto] 20 mg PO DAILY 03/03/16 hydrOXYzine pamoate [Hydroxyzine Pamoate] 50 mg PO DAILY PRN 03/03/16 risperiDONE [RisperDAL] 1 mg PO QPM 03/03/16 Furosemide [Furosemide] 20 mg PO DAILY 02/25/17 Objective - Vital Signs/Intake & Output Reviewed Vital Signs: Yes Vital Signs: Vital Signs x48h Temp Pulse Pulse Resp BP Pulse Ox 02/27/17 10:00 93 02/27/17 09:20 36.3 C L 93 16 128/68 96 02/27/17 08:00 96 02/27/17 07:20 80 16 02/27/17 06:00 92 Intake & Output: Intake & Output 02/24/17 02/25/17 02/26/17 02/27/17 23:59 23:59 23:59 23:59 Intake Total 1540 1290 490 Output Total 1300 750 Balance 1540 -10 260 - Objective General Appearance: positive: No acute distress, Alert, Lethargic Eyes Bilateral: positive: Normal inspection ENT: positive: ENT inspection nml, Pharynx nml, No signs of dehydration Neck: positive: Nml inspection, Thyroid nml, No JVD, Trachea midline Respiratory: positive: Chest non-tender, No respiratory distress, Wheezes, Rhonchi Cardiovascular: positive: No gallop, Irregularly irregular, Systolic murmur Peripheral Pulses: 2+ Radial (R), 2+ Radial (L) Abdomen: positive: Non-tender, No organomegaly, Nml bowel sounds, No distention Back: positive: Nml inspection Skin: positive: Color nml, No rash, Warm, Dry, Other (flushed cheeks.) Extremities: positive: Non-tender, Full ROM, Nml appearance, Pedal edema Neurologic/Psychiatric: positive: Oriented x3, CN's nml (2-12), Weakness, Sensory loss, Depressed mood/affect Reflexes: Bicep (R): 3+, Bicep (L): 3+ - Lab Results Fish Bones: 02/28/17 05:20 02/27/17 05:27 Other Labs: Lab Results x24hrs 02/27/17 02/27/17 02/27/17 Range/Units 05:27 05:27 05:27 WBC 13.7 H (4.8-10.8) x10^3/uL RBC 4.45 (4.20-5.40) 10^6/uL Hgb 11.2 L (12.0-16.0) g/dL Hct 38.1 (37.0-47.0) % MCV 85.6 (81.0-99.0) fL MCH 25.2 L (27.0-31.0) pg MCHC 29.5 L (32.0-36.0) g/dL RDW 22.3 H (12.0-15.0) % Plt Count 577 H (130-450) 10^3/uL MPV 9.9 (7.9-10.8) fL Neut # 13.3 H (1.5-6.6) 10^3/uL Lymph # 0.1 L (1.5-3.5) 10^3/uL [place] # 0.3 (0.0-1.0) 10^3/uL Eos # 0.0 (0.0-0.7) 10^3/uL Baso # 0.0 (0.0-0.1) 10^3/uL Absolute Nucleated RBC 0.08 x10^3/uL Nucleated RBC % 0.6 /100WBC Sodium 140 (135-145) mmol/L Potassium 4.5 (3.5-5.0) mmol/L Chloride 103 (101-111) mmol/L Carbon Dioxide 29 (21-32) mmol/L Anion Gap 8.0 (6-13) BUN 43 H (6-20) mg/dL Creatinine 1.2 H (0.4-1.0) mg/dL Estimated GFR (MDRD) 45 L (>89) Glucose 137 H (70-100) mg/dL Calcium 9.3 (8.5-10.3) mg/dL Total Bilirubin 0.5 (0.2-1.0) mg/dL AST 38 (10-42) IU/L ALT 40 (10-60) IU/L Alkaline Phosphatase 90 (42-121) IU/L B-Natriuretic Peptide 622 H (5-100) pg/mL Total Protein 6.9 (6.7-8.2) g/dL Albumin 3.6 (3.2-5.5) g/dL Globulin 3.3 (2.1-4.2) g/dL Albumin/Globulin Ratio 1.1 (1.0-2.2) - Diagnostic Imaging Diagnostic Imaging Results: positive: Final report reviewed Assessment/Plan - Problem List (1) Pulmonary hypertension Impression: Patient presented with shortness of breath and weakness in her legs as well as generalized fatigue. The patient had no evidence of pneumonia or increased pulmonary congestion on x-ray. A chest CT did not show any new pulmonary embolism. As per last echocardiogram that was complete in 10/2016, patient has abnormally elevated pulmonary pressures. Plan: Continue Duo nebs, as needed, Solu-Medrol 40 mg 3 times daily, IV azithromycin, Supplemental oxygen, Budesonide twice daily and formoterol twice daily (2) COPD exacerbation Impression: Patient presented with shortness of breath and weakness in her legs as well as generalized fatigue. The patient had no evidence of pneumonia or increased pulmonary congestion on x-ray. A chest CT did not show any new pulmonary embolism. As per last echocardiogram that was complete in 10/2016, patient has abnormally elevated pulmonary pressures. This is likely a consequence of her longstanding COPD. Plan: Continue Duo nebs, as needed, Solu-Medrol 40 mg 3 times daily, IV azithromycin, Supplemental oxygen, Budesonide twice daily and formoterol twice daily (3) Altered mental status, unspecified Impression: Patient was very somnolent upon exam today with noted AMS. She was breathing in a shallow pattern. Plan: Support respiratory status and monitor. (4) Chronic pain Impression: Patient has chronic back pain from scoliosis and previous spinal surgery. Patient takes tramadol and Vicodin as needed at home. Today, the patient notes her pain to be currently controlled Plan: Patient will be continued on her home medications while she is hospitalized, providing her respiratory status does not become compromised. (5) History of pulmonary embolism Impression: Patient has history of pulmonary embolism and is on Xarelto. Patient was previously on oxygen at home but stopped using oxygen on presentation. Plan: We will set up home oxygen prior to discharge. (6) Essential thrombocytosis Impression: Patient is a history of essential thrombocytosis and is on hydroxyurea at home. In the past the patient has had issues with compliance to hydroxyurea however states that she is currently taking it. Plan: Continue on her home dose and monitor her platelet levels. (7) Hypertension Impression: Patient's blood pressure today was 130/82, and she has a long standing history of this. Plan: We will continue antihypertensives. Qualifiers: Hypertension type: essential hypertension Qualified Code(s): I10 - Essential (primary) hypertension (8) Anxiety Impression: The patient has a long history of anxiety and bipolar disorder. The patient is anxious on presentation. The patient will be continued on her home doses of Risperdal, Cymbalta and Klonopin. Plan: We will continue to monitor and we can add Xanax or Ativan if needed. 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 jail xerelto. Plan: Low tolerance for repeat chest CT to rule out PE if oxygen needs persist.
[2017-02-27] MEDS: SPIRONOLACTONE 25 MG TABLET PO SCH (18:05)
[2017-02-27] MEDS ORDERED: IOPAMIDOL-300 100 ML VIAL ONE (20:26)
[2017-02-27] MEDS: IOPAMIDOL-300 100 ML VIAL IVP ONE (21:01)
[2017-02-27] MEDS: risperiDONE 1 MG TABLET PO SCH (21:48)
[2017-02-27] MEDS: MIRTAZAPINE 15 MG TABLET PO SCH (21:48)
--- NOTE | 2017-02-27 22:25 | CT Report ---
EXAM: CT ANGIOGRAM CHEST EXAM DATE: 02/27/2017 09:07 PM. CLINICAL HISTORY: Pulmonary emboli. COMPARISON: 02/25/2017. TECHNIQUE: Routine helical imaging was performed through the chest in the pulmonary arterial phase. I V Contrast: 80 cc [id number]. Reconstructions: Coronal 3-D MIP reconstructions.Sagittal and coronal. In accordance with CT protocol optimization, one or more of the following dose reduction techniques w ere utilized for this exam: automated exposure control, adjustment of mA and/or KV based on patient s ize, or use of iterative reconstructive technique. FINDINGS: Pulmonary Arteries: Diagnostic quality: Adequate through the segmental arteries. No evidence for acute or chronic pulmona ry emboli. Again noted is chronic nonfilling of the right lower lobe and right middle lobe pulmonary arteries. RV/LV is within normal limits. There is no interventricular septal bowing. There is no reflux of cont rast material in the IVC. Lungs/Pleura: Again seen are geographically marginated areas of groundglass opacity in both lungs. Sc attered pleural parenchymal scarring appear unchanged. Patchy opacity in the right lower lobe (5/88) appears unchanged compared to prior. No new focal consolidation is seen. No pneumothorax. Mediastinum: Heart size is normal. No pericardial effusion. No enlarged mediastinal or hilar lymph no ca. Previously noted right supraclavicular lymph node and paratracheal lymph node are decreased, now normal. Thoracic Aorta: Unremarkable. Upper Abdomen: Small hiatal hernia noted. Stable bilateral adrenal nodules measuring 1 cm each. Other: None. IMPRESSION: 1. No evidence for acute pulmonary thromboemboli. 2. Again noted is chronic nonfilling of the right middle lobe and lower lobe pulmonary arteries. 3. There is a marginated pulmonary groundglass opacities bilaterally could reflect chronic small airw ays disease. 4. Focal right lower lobe consolidation is unchanged and may represent infection or aspiration. 5. Previously noted enlarged mediastinal lymph nodes now appear normal size. [facility] Referring Provider Line: [phone] SITE ID: [id number]
[2017-02-27] MEDS: ZOLPIDEM 5 MG TABLET PO PRN (22:42)
[2017-02-28] MEDS ORDERED: IOPAMIDOL-300 100 ML VIAL IVP ONE (00:38)
[2017-02-28] MEDS: FUROSEMIDE 40 MG/4 ML VIAL IVP SCH ×2 (05:55→13:11)
[2017-02-28] MEDS: SODIUM CHLORIDE FLUSH 0.9% 10 ML SYRINGE IVP PRN ×3 (05:56→13:12)
[2017-02-28] MEDS: methylPREDNISolone SUCCINATE 40 MG/ML VIAL IVP SCH ×3 (05:56→21:32)
[2017-02-28] MEDS: SODIUM CHLORIDE FLUSH 0.9% 10 ML SYRINGE IVP SCH ×3 (05:56→21:32)
[2017-02-28 06:11] LABS: BASOPHILS % (AUTO) 0.1 %; HGB - HEMOGLOBIN 11.9 g/dL (12.0-16.0); LYMPHOCYTES # (AUTO) 0.1 10^3/uL (1.5-3.5); LYMPHOCYTES % (AUTO) 0.6 %; MEAN CORPUSCULAR HEMOGLOBIN 25.1 pg (27.0-31.0); MEAN CORPUSCULAR VOLUME 86.2 fL (81.0-99.0); MEAN PLATELET VOLUME 9.7 fL (7.9-10.8); MONOCYTES # (AUTO) 0.3 10^3/uL (0.0-1.0); MONOCYTES % (AUTO) 1.6 %; NEUTROPHILS # (AUTO) 16.8 10^3/uL (1.5-6.6); NEUTROPHILS % (AUTO) 97.7 %; PLT - PLATELET COUNT 588 10^3/uL (130-450); RED BLOOD COUNT 4.76 10^6/uL (4.20-5.40); RED CELL DISTRIBUTION WIDTH 22.4 % (12.0-15.0); WHITE BLOOD COUNT 17.2 x10^3/uL (4.8-10.8)
[2017-02-28] MEDS: HYDROcod/ACETAM 10 MG/325 MG TABLET PO PRN ×3 (06:17→21:32)
[2017-02-28] MEDS: PANTOPRAZOLE 40 MG TABLET PO SCH (06:25)
[2017-02-28 06:44] LABS: PLATELET ESTIMATE, MANUAL INCREASED (>450,000) (NORMAL)
--- NOTE | 2017-02-28 08:53 | PROVIDER PROGRESS NOTE ---
Subjective - Prog Note Date Prog Note Date: 02/28/17 Prog Note Time: 08:53 - Subjective Pt reports feeling: Improved Subjective: Aurelia was sleepy today during her exam. She denies chest pain or a new cough, but continues on high flow oxygen. Current Medications - Current Medications Current Medications: Active Medications Acetaminophen (Tylenol) 650 mg PO Q4HR PRN PRN Reason: Pain 1 to 4 Last Admin: 02/26/17 07:53 Dose: 650 mg Acetaminophen/Hydrocodone Bitart ([place] 5/325) 1 tab PO Q4HR PRN PRN Reason: Pain 5 to 7 Last Admin: 02/26/17 16:06 Dose: 1 tab Acetaminophen/Hydrocodone Bitart ([place] 10 Mg/325 Mg) 1 tab PO Q4HR PRN PRN Reason: Pain 8 to 10 Last Admin: 02/28/17 06:17 Dose: 1 tab Albuterol () 2.5 mg INH RTQ4H PRN PRN Reason: Wheezing Last Admin: 02/28/17 09:50 Dose: 2.5 mg Budesonide (Pulmicort) 0.5 mg INH RTBID [facility] Last Admin: 02/28/17 09:50 Dose: 0.5 mg Calcitonin [place] (Fortical) 1 sprays LUIS DAILY [facility] Last Admin: 02/28/17 09:21 Dose: 1 spr Clonazepam (Klonopin) 1 mg PO BID PRN PRN Reason: Anxiety Last Admin: 02/28/17 09:20 Dose: 1 mg Duloxetine HCl (Cymbalta) 30 mg PO DAILY [facility] Last Admin: 02/28/17 09:19 Dose: 30 mg Formoterol Fumarate (Perforomist) 20 mcg INH RTBID [facility] Last Admin: 02/28/17 09:50 Dose: 20 mcg Furosemide (Lasix Inj 40 Mg Vial) 40 mg IVP BIDDIURETIC [facility] Last Admin: 02/28/17 13:11 Dose: 40 mg Hydroxyurea (Hydrea) 500 mg PO DAILY [facility] Last Admin: 02/28/17 09:19 Dose: 500 mg Hydroxyzine Pamoate (Vistaril) 50 mg PO DAILY PRN PRN Reason: NEEDED PER PROVIDER ORDERS Azithromycin 500 mg/ Sodium (Chloride) 250 mls @ 250 mls/hr IV DAILY [facility] Last Admin: 02/28/17 09:20 Dose: 250 mls/hr Methylprednisolone (Solu-Medrol (40mg Vial)) 60 mg IVP TID [facility] Last Admin: 02/28/17 13:11 Dose: 60 mg Metoprolol Succinate (Toprol Xl) 25 mg PO DAILY [facility] Last Admin: 02/28/17 09:19 Dose: 25 mg Mirtazapine (Remeron) 15 mg PO QPM [facility] Last Admin: 02/27/17 21:48 Dose: 15 mg Ondansetron HCl (Zofran Inj) 4 mg IVP Q6HR PRN PRN Reason: Nausea / Vomiting Pantoprazole Sodium (Protonix) 40 mg PO QDAC [facility] Last Admin: 02/28/17 06:25 Dose: 40 mg Polyethylene Glycol (Miralax) 17 gm PO DAILY [facility] Last Admin: 02/28/17 09:21 Dose: Not Given Prochlorperazine Edisylate (Compazine Inj) 10 mg IVP Q6HR PRN PRN Reason: Nausea / Vomiting Promethazine HCl (Phenergan Inj) 25 mg IM Q6HR PRN PRN Reason: Nausea / Vomiting Risperidone (Risperdal) 1 mg PO QPM [facility] Last Admin: 02/27/17 21:48 Dose: 1 mg Rivaroxaban (Xarelto) 20 mg PO DAILYWM [facility] Last Admin: 02/28/17 09:19 Dose: 20 mg Sodium Chloride (Normal Saline Flush 0.9%) 10 ml IVP PRN PRN PRN Reason: NEEDED PER PROVIDER ORDERS Last Admin: 02/28/17 13:12 Dose: 10 ml Sodium Chloride (Normal Saline Flush 0.9%) 10 ml IVP Q8HR [facility] Last Admin: 02/28/17 13:11 Dose: 10 ml Spironolactone (Aldactone) 25 mg PO DAILY [facility] Last Admin: 02/28/17 09:19 Dose: 25 mg Tramadol HCl (Ultram) 50 mg PO QID PRN PRN Reason: Analgesia Last Admin: 02/28/17 14:32 Dose: 50 mg Zolpidem Tartrate (Ambien) 5 mg PO QPM PRN PRN Reason: Insomnia Last Admin: 02/27/17 22:42 Dose: 5 mg clonazePAM [Klonopin] 0.5 - 1 mg PO TID PRN 10/01/12 Mirtazapine [Remeron] 30 mg PO QPM 05/19/14 traMADol [Ultram] 50 mg PO QID PRN 08/17/15 Omeprazole 20 mg PO BID 12/30/15 Metoprolol Succinate 25 mg PO DAILY 01/13/16 Albuterol Sulf [Ventolin Hfa Inhaler] 2 puffs INH Q4H PRN 03/03/16 Budesonide/Formoterol Fumarate [Symbicort 160-4.5 Mcg Inhaler] 2 puffs INH BID 03/03/16 DULoxetine [Cymbalta] 30 mg PO DAILY 03/03/16 Hydroxyurea 500 mg PO DAILY 03/03/16 Rivaroxaban [Xarelto] 20 mg PO DAILY 03/03/16 hydrOXYzine pamoate [Hydroxyzine Pamoate] 50 mg PO DAILY PRN 03/03/16 risperiDONE [RisperDAL] 1 mg PO QPM 03/03/16 Furosemide [Furosemide] 20 mg PO DAILY 02/25/17 Objective - Vital Signs/Intake & Output Reviewed Vital Signs: Yes Vital Signs: Vital Signs x48h Pulse Ox 02/28/17 06:00 92 02/28/17 04:00 91 L 02/28/17 01:38 88 L Intake & Output: Intake & Output 02/25/17 02/26/17 02/27/17 02/28/17 23:59 23:59 23:59 23:59 Intake Total 1540 1290 1580 Output Total 1300 750 401 Balance 1540 -10 830 -401 - Objective General Appearance: positive: No acute distress, Lethargic Eyes Bilateral: positive: Normal inspection Eyes: OU Scleral icterus ENT: positive: ENT inspection nml, Pharynx nml, No signs of dehydration Neck: positive: Nml inspection, Thyroid nml, No JVD, Trachea midline, Stiff neck Respiratory: positive: Chest non-tender, Wheezes, Rales Cardiovascular: positive: Irregularly irregular, Systolic murmur Peripheral Pulses: 1+ Radial (R), 1+ Radial (L) Abdomen: positive: Non-tender, No organomegaly, Nml bowel sounds, No distention Back: positive: Nml inspection Skin: positive: No rash, Warm, Dry, Pallor Extremities: positive: Non-tender, Pedal edema Neurologic/Psychiatric: positive: Oriented x3, Weakness, Sensory loss, Depressed mood/affect Reflexes: Bicep (R): 2+, Bicep (L): 2+ - Lab Results Fish Bones: 03/01/17 05:20 03/01/17 05:20 Other Labs: Lab Results x24hrs 02/28/17 02/28/17 Range/Units 05:20 05:20 WBC 17.2 H (4.8-10.8) x10^3/uL RBC 4.76 (4.20-5.40) 10^6/uL Hgb 11.9 L (12.0-16.0) g/dL Hct 41.1 (37.0-47.0) % MCV 86.2 (81.0-99.0) fL MCH 25.1 L (27.0-31.0) pg MCHC 29.0 L (32.0-36.0) g/dL RDW 22.4 H (12.0-15.0) % Plt Count 588 H (130-450) 10^3/uL MPV 9.7 (7.9-10.8) fL Neut # 16.8 H (1.5-6.6) 10^3/uL Lymph # 0.1 L (1.5-3.5) 10^3/uL Ward # 0.3 (0.0-1.0) 10^3/uL Eos # 0.0 (0.0-0.7) 10^3/uL Baso # 0.0 (0.0-0.1) 10^3/uL Absolute Nucleated RBC 0.08 x10^3/uL Nucleated RBC % 0.4 /100WBC Manual Slide Review Indicated Platelet Estimate INCREASED (>450,000) (NORMAL) RBC Morph Micro Appear 1+ TEARDROP CELLS (NORMAL) B-Natriuretic Peptide 526 H (5-100) pg/mL - Diagnostic Imaging Diagnostic Imaging Results: positive: Final report reviewed Diagnostic Imaging Comments: Chest CT PE: FINDINGS: Pulmonary Arteries: Diagnostic quality: Adequate through the segmental arteries. No evidence for acute or chronic pulmonary emboli. Again noted is chronic nonfilling of the right lower lobe and right middle lobe pulmonary arteries. RV/LV is within normal limits. There is no interventricular septal bowing. There is no reflux of contrast material in the IVC. Lungs/Pleura: Again seen are geographically marginated areas of groundglass opacity in both lungs. Scattered pleural parenchymal scarring appear unchanged. Patchy opacity in the right lower lobe (5/88) appears unchanged compared to prior. No new focal consolidation is seen. No pneumothorax. Mediastinum: Heart size is normal. No pericardial effusion. No enlarged mediastinal or hilar lymph nodes. Previously noted right supraclavicular lymph node and paratracheal lymph node are decreased, now normal. Thoracic Aorta: Unremarkable. Upper Abdomen: Small hiatal hernia noted. Stable bilateral adrenal nodules measuring 1 cm each. Other: None. IMPRESSION: 1. No evidence for acute pulmonary thromboemboli. 2. Again noted is chronic nonfilling of the right middle lobe and lower lobe pulmonary arteries. 3. There is a marginated pulmonary groundglass opacities bilaterally could reflect chronic small airways disease. 4. Focal right lower lobe consolidation is unchanged and may represent infection or aspiration. 5. Previously noted enlarged mediastinal lymph nodes now appear normal size. Assessment/Plan - Problem List (1) Pulmonary hypertension Impression: Patient presented with shortness of breath and weakness in her legs as well as generalized fatigue. Chest CT completed on 02/28/16 did not show any new pulmonary embolism. An echocardiogram on this admission shows a worsening of right heart function; RV systolic function is severely impaired, RVSP at rest is 72mmHg. Plan: Continue Duo nebs, as needed, Solu-Medrol 40 mg 3 times daily, IV azithromycin, and Spironolactone was started daily. Supplemental oxygen, Budesonide twice daily and formoterol twice daily. (2) COPD exacerbation Impression: Patient presented with shortness of breath and weakness in her legs as well as generalized fatigue. The patient had no evidence of pneumonia or increased pulmonary congestion on x-ray. A chest CT did not show any new pulmonary embolism. Echocardiogram on this admission shows a worsening of her pulmonary HTN and patient continues on high flow O2 at 8-10L. Spot check oxygen saturation and titrate. This is likely a consequence of her longstanding COPD. Plan: Continue Duo nebs, as needed, Solu-Medrol 40 mg 3 times daily, IV azithromycin, Supplemental oxygen, Budesonide twice daily and formoterol twice daily. Patient will need home O2 upon discharge. (3) Altered mental status, unspecified Impression: Patient was very somnolent upon exam today with noted AMS. She was breathing in a shallow pattern and has been sleepy for much of today. Patient is dependent on pain medications and notes her pain to be in her back, torso and teeth. Plan: Support respiratory status and monitor. (4) Chronic pain Impression: Patient has chronic back pain from scoliosis and previous spinal surgery. Patient takes tramadol and Vicodin as needed at home. Today, the patient notes her pain to be mainly in the back of her head and neck and tooth pain. Plan: Patient will be continued on her home medications while she is hospitalized, providing her respiratory status does not become compromised. (5) History of pulmonary embolism Impression: Patient has history of pulmonary embolism and is on Xarelto. Patient was previously on oxygen at home but stopped using oxygen on presentation. Patient has been on high flow O2 for at least 48 hours. Plan: We will set up home oxygen prior to discharge. (6) Essential thrombocytosis Impression: Patient is a history of essential thrombocytosis and is on hydroxyurea at home. In the past the patient has had issues with compliance to hydroxyurea however states that she is currently taking it. She has a known blood disorder called Daniela 2 mutation. Plan: Continue on her home dose and monitor her platelet levels. (7) Hypertension Qualifiers: Hypertension type: essential hypertension Qualified Code(s): I10 - Essential (primary) hypertension (8) Anxiety Impression: The patient has a long history of anxiety and bipolar disorder. The patient is anxious on presentation. The patient will be continued on her home doses of Risperdal, Cymbalta and Klonopin. Plan: We will continue to monitor and we can add Xanax or Ativan if needed. 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 intermediate xerelto. Plan: Continue to monitor.
[2017-02-28] MEDS: HYDROXYUREA 500 MG CAPSULE PO SCH (09:19)
[2017-02-28] MEDS: METOPROLOL SUCCINATE 25 MG TABLET PO SCH (09:19)
[2017-02-28] MEDS: DULoxetine 30 MG CAPSULE PO SCH (09:19)
[2017-02-28] MEDS: SPIRONOLACTONE 25 MG TABLET PO SCH (09:19)
[2017-02-28] MEDS: RIVAROXABAN 10 MG TABLET PO SCH (09:19)
[2017-02-28] MEDS: clonazePAM 0.5 MG TABLET PO PRN ×2 (09:20→20:18)
[2017-02-28] MEDS: AZITHROMYCIN INJ 500 MG in SODIUM CHLORIDE 0.9% 250 ML IV SCH (09:20)
[2017-02-28] MEDS: CALCITONIN NASAL SPRAY NAS SCH (09:21)
[2017-02-28] MEDS: POLYETHYLENE GLYCOL 3350 17 GM PACKET PO SCH (09:21)
[2017-02-28] MEDS: traMADol 50 MG TABLET PO PRN ×2 (09:48→14:32)
[2017-02-28] MEDS: ALBUTEROL NEB 2.5 MG/3 ML INH PRN (09:50)
[2017-02-28] MEDS: FORMOTEROL FUMARATE NEB 20 MCG/2 ML INH SCH ×2 (09:50→19:39)
[2017-02-28] MEDS: BUDESONIDE 0.5 MG/2 ML NEB INH SCH ×2 (09:50→19:39)
[2017-02-28] MEDS: ACETAMINOPHEN 325 MG TABLET PO PRN (17:18)
[2017-02-28] MEDS ORDERED: LIDOCAINE VISCOUS 2% 15 ML UDC MM PRN (17:52)
[2017-02-28] MEDS: risperiDONE 1 MG TABLET PO SCH (20:09)
[2017-02-28] MEDS: MIRTAZAPINE 15 MG TABLET PO SCH (20:10)
[2017-03-01] MEDS: traMADol 50 MG TABLET PO PRN ×2 (00:45→20:54)
[2017-03-01] MEDS: HYDROcod/ACETAM 10 MG/325 MG TABLET PO PRN ×3 (01:29→16:42)
[2017-03-01 06:01] LABS: BASOPHILS % (AUTO) 0.3 %; HGB - HEMOGLOBIN 12.2 g/dL (12.0-16.0); LYMPHOCYTES # (AUTO) 0.1 10^3/uL (1.5-3.5); LYMPHOCYTES % (AUTO) 0.6 %; MEAN CORPUSCULAR HEMOGLOBIN 24.8 pg (27.0-31.0); MEAN CORPUSCULAR HGB CONC 29.1 g/dL (32.0-36.0); MEAN CORPUSCULAR VOLUME 85.4 fL (81.0-99.0); MONOCYTES # (AUTO) 0.4 10^3/uL (0.0-1.0); MONOCYTES % (AUTO) 2.8 %; NEUTROPHILS # (AUTO) 15.2 10^3/uL (1.5-6.6); NEUTROPHILS % (AUTO) 96.3 %; PLT - PLATELET COUNT 560 10^3/uL (130-450); RED BLOOD COUNT 4.91 10^6/uL (4.20-5.40); RED CELL DISTRIBUTION WIDTH 22.7 % (12.0-15.0); WHITE BLOOD COUNT 15.8 x10^3/uL (4.8-10.8)
[2017-03-01] MEDS: methylPREDNISolone SUCCINATE 40 MG/ML VIAL IVP SCH (06:09)
[2017-03-01 06:10] LABS: ALBUMIN 3.5 g/dL (3.2-5.5); ALBUMIN/GLOBULIN RATIO 1.1 (1.0-2.2); BILIRUBIN,TOTAL 0.5 mg/dL (0.2-1.0); CALCIUM 9.8 mg/dL (8.5-10.3); CREATININE 1.2 mg/dL (0.4-1.0); TOTAL PROTEIN 6.6 g/dL (6.7-8.2)
[2017-03-01] MEDS: SODIUM CHLORIDE FLUSH 0.9% 10 ML SYRINGE IVP SCH ×3 (06:10→20:54)
[2017-03-01] MEDS: FUROSEMIDE 40 MG/4 ML VIAL IVP SCH (06:21)
[2017-03-01] MEDS: PANTOPRAZOLE 40 MG TABLET PO SCH (06:29)
[2017-03-01] MEDS: SODIUM CHLORIDE FLUSH 0.9% 10 ML SYRINGE IVP PRN ×2 (06:30→09:18)
[2017-03-01] MEDS: BUDESONIDE 0.5 MG/2 ML NEB INH SCH ×2 (08:51→19:26)
[2017-03-01] MEDS: FORMOTEROL FUMARATE NEB 20 MCG/2 ML INH SCH ×2 (08:51→19:26)
[2017-03-01] MEDS: METOPROLOL SUCCINATE 25 MG TABLET PO SCH (09:17)
[2017-03-01] MEDS: DULoxetine 30 MG CAPSULE PO SCH (09:17)
[2017-03-01] MEDS: SPIRONOLACTONE 25 MG TABLET PO SCH ×2 (09:17→20:56)
[2017-03-01] MEDS: HYDROXYUREA 500 MG CAPSULE PO SCH (09:17)
[2017-03-01] MEDS: AZITHROMYCIN INJ 500 MG in SODIUM CHLORIDE 0.9% 250 ML IV SCH (09:17)
[2017-03-01] MEDS: RIVAROXABAN 10 MG TABLET PO SCH (09:17)
[2017-03-01] MEDS: POLYETHYLENE GLYCOL 3350 17 GM PACKET PO SCH (09:18)
[2017-03-01] MEDS: CALCITONIN NASAL SPRAY NAS SCH (09:27)
[2017-03-01] MEDS ORDERED: FUROSEMIDE 40 MG TABLET PO SCH (10:00)
[2017-03-01] MEDS ORDERED: predniSONE 20 MG TABLET PO SCH (10:00)
--- NOTE | 2017-03-01 10:35 | PROVIDER PROGRESS NOTE ---
Subjective - Prog Note Date Prog Note Date: 03/01/17 Prog Note Time: 08:00 - Subjective Pt reports feeling: No change Subjective: Aurelia lacks motivation per staff and her report. She denies chest discomfort, N /V, loss of appetite or insomnia. She continues on high flow oxygen and can be found hypoxic due to non-compliance. She claims that she rips it off her face without knowing it. Current Medications - Current Medications Current Medications: Active Medications Acetaminophen (Tylenol) 650 mg PO Q4HR PRN PRN Reason: Pain 1 to 4 Last Admin: 02/28/17 17:18 Dose: 650 mg Acetaminophen/Hydrocodone Bitart ([place] 10 Mg/325 Mg) 1 tab PO Q4HR PRN PRN Reason: Pain 8 to 10 Last Admin: 03/01/17 16:42 Dose: 1 tab Acetaminophen/Hydrocodone Bitart ([place] 5/325) 1 tab PO Q6HR PRN PRN Reason: PAIN Albuterol () 2.5 mg INH RTQ4H PRN PRN Reason: Wheezing Last Admin: 02/28/17 09:50 Dose: 2.5 mg Budesonide (Pulmicort) 0.5 mg INH RTBID [facility] Last Admin: 03/01/17 19:26 Dose: 0.5 mg Calcitonin [place] (Fortical) 1 sprays LUIS DAILY [facility] Last Admin: 03/01/17 09:27 Dose: 1 spr Clonazepam (Klonopin) 0.5 mg PO TID [facility] Duloxetine HCl (Cymbalta) 30 mg PO DAILY [facility] Last Admin: 03/01/17 09:17 Dose: 30 mg Formoterol Fumarate (Perforomist) 20 mcg INH RTBID [facility] Last Admin: 03/01/17 19:26 Dose: 20 mcg Furosemide (Lasix) 40 mg PO BIDDIURETIC [facility] Last Admin: 03/01/17 14:20 Dose: 40 mg Hydroxyurea (Hydrea) 500 mg PO DAILY [facility] Last Admin: 03/01/17 09:17 Dose: 500 mg Hydroxyzine Pamoate (Vistaril) 50 mg PO DAILY PRN PRN Reason: NEEDED PER PROVIDER ORDERS Azithromycin 500 mg/ Sodium (Chloride) 250 mls @ 250 mls/hr IV DAILY [facility] Last Infusion: 03/01/17 10:25 Dose: Infused Lidocaine HCl (Xylocaine Viscous 2%) 5 ml MM Q4H PRN PRN Reason: Mouth Sore Pain Last Admin: 03/01/17 16:42 Dose: 5 ml Metoprolol Succinate (Toprol Xl) 25 mg PO DAILY [facility] Last Admin: 03/01/17 09:17 Dose: 25 mg Mirtazapine (Remeron) 15 mg PO QPM [facility] Last Admin: 02/28/17 20:10 Dose: 15 mg Ondansetron HCl (Zofran Inj) 4 mg IVP Q6HR PRN PRN Reason: Nausea / Vomiting Pantoprazole Sodium (Protonix) 40 mg PO QDAC [facility] Last Admin: 03/01/17 06:29 Dose: 40 mg Polyethylene Glycol (Miralax) 17 gm PO DAILY [facility] Last Admin: 03/01/17 09:18 Dose: Not Given Prednisone (Deltasone) 40 mg PO DAILYWM [facility] Last Admin: 03/01/17 14:21 Dose: 40 mg Prochlorperazine Edisylate (Compazine Inj) 10 mg IVP Q6HR PRN PRN Reason: Nausea / Vomiting Promethazine HCl (Phenergan Inj) 25 mg IM Q6HR PRN PRN Reason: Nausea / Vomiting Risperidone (Risperdal) 1 mg PO QPM [facility] Last Admin: 02/28/17 20:09 Dose: 1 mg Rivaroxaban (Xarelto) 20 mg PO DAILYWM [facility] Last Admin: 03/01/17 09:17 Dose: 20 mg Sodium Chloride (Normal Saline Flush 0.9%) 10 ml IVP PRN PRN PRN Reason: NEEDED PER PROVIDER ORDERS Last Admin: 03/01/17 09:18 Dose: 10 ml Sodium Chloride (Normal Saline Flush 0.9%) 10 ml IVP Q8HR [facility] Last Admin: 03/01/17 14:20 Dose: 10 ml Spironolactone (Aldactone) 25 mg PO BID [facility] Last Admin: 03/01/17 09:17 Dose: 25 mg Tramadol HCl (Ultram) 50 mg PO QID PRN PRN Reason: Analgesia Last Admin: 03/01/17 00:45 Dose: 50 mg Zolpidem Tartrate (Ambien) 5 mg PO QPM PRN PRN Reason: Insomnia Last Admin: 02/27/17 22:42 Dose: 5 mg clonazePAM [Klonopin] 0.5 - 1 mg PO TID PRN 10/01/12 Mirtazapine [Remeron] 30 mg PO QPM 05/19/14 traMADol [Ultram] 50 mg PO QID PRN 08/17/15 Omeprazole 20 mg PO BID 12/30/15 Metoprolol Succinate 25 mg PO DAILY 01/13/16 Albuterol Sulf [Ventolin Hfa Inhaler] 2 puffs INH Q4H PRN 03/03/16 Budesonide/Formoterol Fumarate [Symbicort 160-4.5 Mcg Inhaler] 2 puffs INH BID 03/03/16 DULoxetine [Cymbalta] 30 mg PO DAILY 03/03/16 Hydroxyurea 500 mg PO DAILY 03/03/16 Rivaroxaban [Xarelto] 20 mg PO DAILY 03/03/16 hydrOXYzine pamoate [Hydroxyzine Pamoate] 50 mg PO DAILY PRN 03/03/16 risperiDONE [RisperDAL] 1 mg PO QPM 03/03/16 Furosemide [Furosemide] 20 mg PO DAILY 02/25/17 Objective - Vital Signs/Intake & Output Reviewed Vital Signs: Yes Vital Signs: Vital Signs x48h Temp Pulse Pulse Resp BP Pulse Ox 03/01/17 10:00 94 03/01/17 09:00 36.3 C L 85 14 118/86 H 94 03/01/17 08:51 70 12 03/01/17 08:00 92 03/01/17 06:00 94 03/01/17 05:00 36.3 C L 79 20 120/68 94 03/01/17 03:49 92 Intake & Output: Intake & Output 02/26/17 02/27/17 02/28/17 03/01/17 23:59 23:59 23:59 23:59 Intake Total 1290 1580 1320 560 Output Total 1300 750 401 353 Balance -10 830 919 207 - Objective General Appearance: positive: No acute distress, Alert, Lethargic Eyes Bilateral: positive: Normal inspection, PERRL Eyes: OU Conjunctivae pale, OU Scleral icterus ENT: positive: ENT inspection nml, Dry mucous membranes Neck: positive: Nml inspection, Stiff neck Respiratory: positive: Chest non-tender, Wheezes, Rales Cardiovascular: positive: No gallop, Irregularly irregular, Systolic murmur, Decreased pulse(s) Peripheral Pulses: 2+ Radial (R), 2+ Radial (L) Abdomen: positive: Non-tender, No organomegaly, Nml bowel sounds, No distention Back: positive: Nml inspection Skin: positive: No rash, Warm, Dry, Pallor Extremities: positive: Non-tender, Full ROM, Pedal edema Neurologic/Psychiatric: positive: Disoriented to time, Weakness, Sensory loss, Depressed mood/affect, Other (baseline dementia/drug induced.) Reflexes: Bicep (R): 2+, Bicep (L): 2+ - Lab Results Fish Bones: 03/01/17 05:20 03/01/17 05:20 Other Labs: Lab Results x24hrs 03/01/17 03/01/17 03/01/17 Range/Units 05:20 05:20 05:20 WBC 15.8 H (4.8-10.8) x10^3/uL RBC 4.91 (4.20-5.40) 10^6/uL Hgb 12.2 (12.0-16.0) g/dL Hct 41.9 (37.0-47.0) % MCV 85.4 (81.0-99.0) fL MCH 24.8 L (27.0-31.0) pg MCHC 29.1 L (32.0-36.0) g/dL RDW 22.7 H (12.0-15.0) % Plt Count 560 H (130-450) 10^3/uL MPV 9.0 (7.9-10.8) fL Neut # 15.2 H (1.5-6.6) 10^3/uL Lymph # 0.1 L (1.5-3.5) 10^3/uL [place] # 0.4 (0.0-1.0) 10^3/uL Eos # 0.0 (0.0-0.7) 10^3/uL Baso # 0.0 (0.0-0.1) 10^3/uL Absolute Nucleated RBC 0.05 x10^3/uL Nucleated RBC % 0.3 /100WBC Sodium 141 (135-145) mmol/L Potassium 3.9 (3.5-5.0) mmol/L Chloride 98 L (101-111) mmol/L Carbon Dioxide 34 H (21-32) mmol/L Anion Gap 9.0 (6-13) BUN 44 H (6-20) mg/dL Creatinine 1.2 H (0.4-1.0) mg/dL Estimated GFR (MDRD) 45 L (>89) Glucose 144 H (70-100) mg/dL Calcium 9.8 (8.5-10.3) mg/dL Total Bilirubin 0.5 (0.2-1.0) mg/dL AST 32 (10-42) IU/L ALT 66 H (10-60) IU/L Alkaline Phosphatase 84 (42-121) IU/L B-Natriuretic Peptide 352 H (5-100) pg/mL Total Protein 6.6 L (6.7-8.2) g/dL Albumin 3.5 (3.2-5.5) g/dL Globulin 3.1 (2.1-4.2) g/dL Albumin/Globulin Ratio 1.1 (1.0-2.2) - Diagnostic Imaging Diagnostic Imaging Results: positive: Prelim report reviewed, Final report reviewed Assessment/Plan - Problem List (1) Pulmonary hypertension Impression: Patient presented with shortness of breath and weakness in her legs as well as generalized fatigue. Chest CT completed on 02/28/16 did not show any new pulmonary embolism. An echocardiogram on this admission shows a worsening of right heart function; RV systolic function is severely impaired, RVSP at rest is 72mmHg. Plan: Continue Duo nebs, as needed, Solu-Medrol 40 mg 3 times daily is now changed to oral prednisone, IV azithromycin, and Spironolactone daily. Supplemental oxygen, Budesonide twice daily and formoterol twice daily. Orders to wean O2 and ambulate have been written. Patient's oxygen requirements have continued at 6-10L per high flow to maintain O2 saturations >90%. Despite further testing including labratory monitoring, chest CT with contrast to check for pulmonary emboli that was negative. Titrating IV steroids to PO prednisone and adjustment of nebulizers. Ideally, patient would need a transfer to a facility that has pulmonary specialists. Beds are reported to be limited in the whole [facility] region. (2) COPD exacerbation Impression: Patient presented with shortness of breath and weakness in her legs as well as generalized fatigue. The patient had no evidence of pneumonia or increased pulmonary congestion on x-ray. A chest CT did not show any new pulmonary embolism. Echocardiogram on this admission shows a worsening of her pulmonary HTN and patient continues on high flow O2 at 8-10L. Spot check oxygen saturation and titrate. This is likely a consequence of her longstanding COPD. Plan: Continue Duo nebs, as needed, PO prednisone, IV azithromycin, Supplemental oxygen, Budesonide twice daily and formoterol twice daily. Patient will need home O2 upon discharge. (3) Altered mental status, unspecified Impression: Patient was very somnolent upon exam today with noted AMS. She was breathing in a shallow pattern and has been sleepy for much of today. Patient is dependent on pain medications and notes her pain to be in her back, torso and teeth. Plan: Support respiratory status and monitor. (4) Chronic pain Impression: Patient has chronic back pain from scoliosis and previous spinal surgery. Patient takes tramadol and Vicodin as needed at home. Today, the patient notes her pain to be mainly in the back of her head and neck and tooth pain. Plan: Patient will be continued on her home medications while she is hospitalized, providing her respiratory status does not become compromised. (5) History of pulmonary embolism Impression: Patient has history of pulmonary embolism and is on Xarelto. Patient was previously on oxygen at home but stopped using oxygen on presentation. Patient has been on high flow O2 for at least 48 hours. Plan: We will set up home oxygen prior to discharge. (6) Essential thrombocytosis Impression: Patient is a history of essential thrombocytosis and is on hydroxyurea at home. In the past the patient has had issues with compliance to hydroxyurea however states that she is currently taking it. She has a known blood disorder called Daniela 2 mutation. Platelets today were elevated at 560. Plan: Continue on her home dose and monitor her platelet levels. (7) Hypertension Impression: Blood pressure was noted to be 139/73. Spironolactone was increased today, which may help with HTN. Plan: We will continue to monitor and add or increase medications as needed. Qualifiers: Hypertension type: essential hypertension Qualified Code(s): I10 - Essential (primary) hypertension (8) Anxiety Impression: The patient has a long history of anxiety and bipolar disorder. The patient is anxious on presentation. The patient will be continued on her home doses of Risperdal, Cymbalta and Klonopin. Plan: We will continue to monitor and Klonopin was decreased as per caregiver report. 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 Recent repeat Chest CT to rule out PE was completed and negative for pulmonary emboli. Plan: Continue to monitor.
[2017-03-01] MEDS: FUROSEMIDE 40 MG TABLET PO SCH (14:20)
[2017-03-01] MEDS: predniSONE 20 MG TABLET PO SCH (14:21)
[2017-03-01] MEDS ORDERED: HYDROcod/ACETAM 5/325 MG TABLET PO PRN (17:22)
[2017-03-01] MEDS: risperiDONE 1 MG TABLET PO SCH (20:54)
[2017-03-01] MEDS: ZOLPIDEM 5 MG TABLET PO PRN (20:54)
[2017-03-01] MEDS: MIRTAZAPINE 15 MG TABLET PO SCH (20:54)
[2017-03-01] MEDS: clonazePAM 0.5 MG TABLET PO SCH (21:28)
[2017-03-02 05:34] LABS: BASOPHILS % (AUTO) 0.3 %; HGB - HEMOGLOBIN 12.3 g/dL (12.0-16.0); LYMPHOCYTES % (AUTO) 1.5 %; MEAN CORPUSCULAR HEMOGLOBIN 24.9 pg (27.0-31.0); MEAN CORPUSCULAR HGB CONC 29.6 g/dL (32.0-36.0); MEAN CORPUSCULAR VOLUME 84.3 fL (81.0-99.0); MEAN PLATELET VOLUME 8.8 fL (7.9-10.8); MONOCYTES % (AUTO) 9.1 %; NEUTROPHILS % (AUTO) 89.1 %; PLT - PLATELET COUNT 492 10^3/uL (130-450); RED BLOOD COUNT 4.94 10^6/uL (4.20-5.40); WHITE BLOOD COUNT 14.3 x10^3/uL (4.8-10.8)
[2017-03-02 05:37] LABS: ABNORMAL LYMPHS % (MANUAL) 0 %
[2017-03-02 06:17] LABS: BAND NEUTROPHILS % (MANUAL) 1 %; LYMPHOCYTES # (MANUAL) 0.9 10^3/uL (1.5-3.5); LYMPHOCYTES % (MANUAL) 6 %; MONOCYTES # (MANUAL) 1.1 10^3/uL (0.0-1.0); NEUTROPHILS # (MANUAL) 12.3 10^3/uL (1.5-6.6); NEUTROPHILS % (MANUAL) 85 %
[2017-03-02 06:18] LABS: PLATELET ESTIMATE, MANUAL INCREASED (>450,000) (NORMAL)
[2017-03-02 06:19] LABS: DIFFERENTIAL COMMENT MANUAL DIFFERENTIAL
[2017-03-02] MEDS: PANTOPRAZOLE 40 MG TABLET PO SCH (06:24)
[2017-03-02] MEDS: SODIUM CHLORIDE FLUSH 0.9% 10 ML SYRINGE IVP SCH ×3 (06:25→21:22)
[2017-03-02] MEDS: FUROSEMIDE 40 MG TABLET PO SCH ×2 (06:25→13:26)
[2017-03-02] MEDS: clonazePAM 0.5 MG TABLET PO SCH ×3 (06:25→21:18)
[2017-03-02] MEDS: HYDROcod/ACETAM 10 MG/325 MG TABLET PO PRN ×2 (08:16→18:04)
[2017-03-02] MEDS: METOPROLOL SUCCINATE 25 MG TABLET PO SCH (08:18)
[2017-03-02] MEDS: SPIRONOLACTONE 25 MG TABLET PO SCH ×2 (08:20→21:18)
[2017-03-02] MEDS: DULoxetine 30 MG CAPSULE PO SCH (08:20)
[2017-03-02] MEDS: predniSONE 20 MG TABLET PO SCH (08:25)
[2017-03-02] MEDS: RIVAROXABAN 10 MG TABLET PO SCH (08:27)
[2017-03-02] MEDS: HYDROXYUREA 500 MG CAPSULE PO SCH (08:29)
[2017-03-02] MEDS: POLYETHYLENE GLYCOL 3350 17 GM PACKET PO SCH (08:39)
[2017-03-02] MEDS: CALCITONIN NASAL SPRAY NAS SCH (08:40)
[2017-03-02] MEDS: AZITHROMYCIN INJ 500 MG in SODIUM CHLORIDE 0.9% 250 ML IV SCH (08:44)
[2017-03-02] MEDS: SODIUM CHLORIDE FLUSH 0.9% 10 ML SYRINGE IVP PRN (08:46)
[2017-03-02] MEDS: BUDESONIDE 0.5 MG/2 ML NEB INH SCH ×2 (09:12→19:00)
[2017-03-02] MEDS: FORMOTEROL FUMARATE NEB 20 MCG/2 ML INH SCH ×2 (09:12→19:00)
[2017-03-02] MEDS: traMADol 50 MG TABLET PO PRN ×2 (11:27→21:18)
[2017-03-02] MEDS: risperiDONE 1 MG TABLET PO SCH (21:18)
[2017-03-02] MEDS: MIRTAZAPINE 15 MG TABLET PO SCH (21:18)
[2017-03-02] MEDS: SODIUM CHLORIDE 0.65% NASAL SPRAY NAS SCH (21:21)
--- NOTE | 2017-03-02 22:28 | PROVIDER PROGRESS NOTE ---
Subjective - Prog Note Date Prog Note Date: 03/02/17 Prog Note Time: 08:00 - Subjective Pt reports feeling: Improved Subjective: Aurelia has no complaints. She denies any new symptoms, is eating well and will need home O2. Current Medications - Current Medications Current Medications: Active Medications Acetaminophen (Tylenol) 650 mg PO Q4HR PRN PRN Reason: Pain 1 to 4 Last Admin: 02/28/17 17:18 Dose: 650 mg Acetaminophen/Hydrocodone Bitart ([place] 10 Mg/325 Mg) 1 tab PO Q4HR PRN PRN Reason: Pain 8 to 10 Last Admin: 03/02/17 18:04 Dose: 1 tab Acetaminophen/Hydrocodone Bitart ([place] 5/325) 1 tab PO Q6HR PRN PRN Reason: PAIN Albuterol () 2.5 mg INH RTQ4H PRN PRN Reason: Wheezing Last Admin: 02/28/17 09:50 Dose: 2.5 mg Budesonide (Pulmicort) 0.5 mg INH RTBID [facility] Last Admin: 03/02/17 19:00 Dose: 0.5 mg Calcitonin [place] (Fortical) 1 sprays LUIS DAILY [facility] Last Admin: 03/02/17 08:40 Dose: 1 spr Clonazepam (Klonopin) 0.5 mg PO TID [facility] Last Admin: 03/02/17 21:18 Dose: 0.5 mg Duloxetine HCl (Cymbalta) 30 mg PO DAILY [facility] Last Admin: 03/02/17 08:20 Dose: 30 mg Formoterol Fumarate (Perforomist) 20 mcg INH RTBID [facility] Last Admin: 03/02/17 19:00 Dose: 20 mcg Furosemide (Lasix) 40 mg PO BIDDIURETIC [facility] Last Admin: 03/02/17 13:26 Dose: 40 mg Hydroxyurea (Hydrea) 500 mg PO DAILY [facility] Last Admin: 03/02/17 08:29 Dose: 500 mg Hydroxyzine Pamoate (Vistaril) 50 mg PO DAILY PRN PRN Reason: NEEDED PER PROVIDER ORDERS Azithromycin 500 mg/ Sodium (Chloride) 250 mls @ 250 mls/hr IV DAILY [facility] Last Infusion: 03/02/17 10:42 Dose: Infused Lidocaine HCl (Xylocaine Viscous 2%) 5 ml MM Q4H PRN PRN Reason: Mouth Sore Pain Last Admin: 03/01/17 16:42 Dose: 5 ml Metoprolol Succinate (Toprol Xl) 25 mg PO DAILY [facility] Last Admin: 03/02/17 08:18 Dose: 25 mg Mirtazapine (Remeron) 15 mg PO QPM [facility] Last Admin: 03/02/17 21:18 Dose: 15 mg Ondansetron HCl (Zofran Inj) 4 mg IVP Q6HR PRN PRN Reason: Nausea / Vomiting Pantoprazole Sodium (Protonix) 40 mg PO QDAC [facility] Last Admin: 03/02/17 06:24 Dose: 40 mg Polyethylene Glycol (Miralax) 17 gm PO DAILY [facility] Last Admin: 03/02/17 08:39 Dose: 17 gm Prednisone (Deltasone) 40 mg PO DAILYWM [facility] Last Admin: 03/02/17 08:25 Dose: 40 mg Prochlorperazine Edisylate (Compazine Inj) 10 mg IVP Q6HR PRN PRN Reason: Nausea / Vomiting Promethazine HCl (Phenergan Inj) 25 mg IM Q6HR PRN PRN Reason: Nausea / Vomiting Risperidone (Risperdal) 1 mg PO QPM [facility] Last Admin: 03/02/17 21:18 Dose: 1 mg Rivaroxaban (Xarelto) 20 mg PO DAILYWM [facility] Last Admin: 03/02/17 08:27 Dose: 20 mg Sodium Chloride (Normal Saline Flush 0.9%) 10 ml IVP PRN PRN PRN Reason: NEEDED PER PROVIDER ORDERS Last Admin: 03/02/17 08:46 Dose: 10 ml Sodium Chloride (Normal Saline Flush 0.9%) 10 ml IVP Q8HR [facility] Last Admin: 03/02/17 21:22 Dose: 10 ml Sodium Chloride ([place]) 2 sprays LUIS BID [facility] Last Admin: 03/02/17 21:21 Dose: 2 sprays Spironolactone (Aldactone) 25 mg PO BID [facility] Last Admin: 03/02/17 21:18 Dose: 25 mg Tramadol HCl (Ultram) 50 mg PO QID PRN PRN Reason: Analgesia Last Admin: 03/02/17 21:18 Dose: 50 mg Zolpidem Tartrate (Ambien) 5 mg PO QPM PRN PRN Reason: Insomnia Last Admin: 03/01/17 20:54 Dose: 5 mg clonazePAM [Klonopin] 0.5 - 1 mg PO TID PRN 10/01/12 Mirtazapine [Remeron] 30 mg PO QPM 05/19/14 traMADol [Ultram] 50 mg PO QID PRN 08/17/15 Omeprazole 20 mg PO BID 12/30/15 Metoprolol Succinate 25 mg PO DAILY 01/13/16 Albuterol Sulf [Ventolin Hfa Inhaler] 2 puffs INH Q4H PRN 03/03/16 Budesonide/Formoterol Fumarate [Symbicort 160-4.5 Mcg Inhaler] 2 puffs INH BID 03/03/16 DULoxetine [Cymbalta] 30 mg PO DAILY 03/03/16 Hydroxyurea 500 mg PO DAILY 03/03/16 Rivaroxaban [Xarelto] 20 mg PO DAILY 03/03/16 hydrOXYzine pamoate [Hydroxyzine Pamoate] 50 mg PO DAILY PRN 03/03/16 risperiDONE [RisperDAL] 1 mg PO QPM 03/03/16 Furosemide [Furosemide] 20 mg PO DAILY 02/25/17 Objective - Vital Signs/Intake & Output Reviewed Vital Signs: Yes Vital Signs: Vital Signs x48h Temp Pulse Pulse Resp BP Pulse Ox 03/02/17 22:00 94 03/02/17 19:42 36.6 C 74 18 129/72 94 03/02/17 19:00 76 20 03/02/17 17:49 94 03/02/17 16:10 96 03/02/17 16:09 36.2 C L 77 18 120/74 96 03/02/17 16:00 96 Intake & Output: Intake & Output 02/27/17 02/28/17 03/01/17 03/02/17 23:59 23:59 23:59 23:59 Intake Total 1580 1320 2100 1410 Output Total 750 308 865 0924 Balance 150 396 2490 360 - Objective General Appearance: positive: No acute distress, Alert, Lethargic Eyes Bilateral: positive: Normal inspection Eyes: OU Conjunctivae pale, OU Scleral icterus ENT: positive: ENT inspection nml, Pharynx nml, Dry mucous membranes Neck: positive: Nml inspection, Thyroid nml, No JVD, Trachea midline Respiratory: positive: Chest non-tender, No respiratory distress, Wheezes, Rales Cardiovascular: positive: Regular rate & rhythm, No gallop, Systolic murmur Peripheral Pulses: 2+ Radial (R), 2+ Radial (L) Abdomen: positive: Non-tender, No organomegaly, Nml bowel sounds, No distention , Other (rounded, soft) Back: positive: Nml inspection Skin: positive: No rash, Warm, Dry Extremities: positive: Non-tender, Full ROM, Nml appearance, Pedal edema Neurologic/Psychiatric: positive: Disoriented to time, Weakness, Sensory loss, Depressed mood/affect Reflexes: Bicep (R): 2+, Bicep (L): 2+ - Lab Results Fish Bones: 03/03/17 06:15 03/03/17 06:15 Other Labs: Lab Results x24hrs 03/02/17 03/02/17 Range/Units 04:56 04:56 WBC 14.3 H (4.8-10.8) x10^3/uL RBC 4.94 (4.20-5.40) 10^6/uL Hgb 12.3 (12.0-16.0) g/dL Hct 41.6 (37.0-47.0) % MCV 84.3 (81.0-99.0) fL MCH 24.9 L (27.0-31.0) pg MCHC 29.6 L (32.0-36.0) g/dL RDW 23.0 H (12.0-15.0) % Plt Count 492 H (130-450) 10^3/uL MPV 8.8 (7.9-10.8) fL Neut # Not Reportable Lymph # Not Reportable [place] # Not Reportable Eos # Not Reportable Baso # Not Reportable Absolute Nucleated RBC Not Reportable Total Counted 100 Band Neuts % (Manual) 1 (0 - 10) % Abnorm Lymph % (Manual) 0 % Nucleated RBC % Not Reportable Neutrophils # (Manual) 12.3 H (1.5-6.6) 10^3/uL Lymphocytes # (Manual) 0.9 L (1.5-3.5) 10^3/uL Monocytes # (Manual) 1.1 H (0.0-1.0) 10^3/uL Eosinophils # (Manual) 0.0 (0-0.7) 10^3/uL Basophils # (Manual) 0.0 (0-0.1) 10^3/uL Differential Comment MANUAL DIFFERENTIAL Platelet Estimate INCREASED (>450,000) (NORMAL) RBC Morph Micro Appear 1+ TEARDROP CELLS (NORMAL) B-Natriuretic Peptide 345 H (5-100) pg/mL - Diagnostic Imaging Diagnostic Imaging Results: positive: Final report reviewed Assessment/Plan - Problem List (1) Pulmonary hypertension Impression: Patient presented with shortness of breath and weakness in her legs as well as generalized fatigue. Chest CT completed on 02/28/16 did not show any new pulmonary embolism. An echocardiogram on this admission shows a worsening of right heart function; RV systolic function is severely impaired, RVSP at rest is 72mmHg. Plan: Continue Duo nebs, as needed, Solu-Medrol 40 mg 3 times daily is now changed to oral prednisone, IV azithromycin, and Spironolactone daily. Supplemental oxygen, Budesonide twice daily and formoterol twice daily. Orders to wean O2 and ambulate have been written. Patient's oxygen requirements have continued at 5-10L per high flow to maintain O2 saturations >90%. Despite further testing including labratory monitoring, chest CT with contrast to check for pulmonary emboli that was negative. Due to medication adjustments, patient stayed today. (2) COPD exacerbation Impression: Patient presented with shortness of breath and weakness in her legs as well as generalized fatigue. The patient had no evidence of pneumonia or increased pulmonary congestion on x-ray. A chest CT did not show any new pulmonary embolism. Echocardiogram on this admission shows a worsening of her pulmonary HTN and patient continues on high flow O2 at 5-10L. Spot check oxygen saturation and titrate. This is likely a consequence of her longstanding COPD. Plan: Continue Duo nebs, as needed, PO prednisone, Supplemental oxygen, Budesonide twice daily and formoterol twice daily. Patient will need home O2 upon discharge. (3) Altered mental status, unspecified Impression: Patient was very somnolent upon exam today with noted AMS. She was breathing in a shallow pattern and has been sleepy for much of today. Patient is dependent on pain medications and notes her pain to be in her back, torso and teeth. Plan: Support respiratory status and monitor. (4) Chronic pain Impression: Patient has chronic back pain from scoliosis and previous spinal surgery. Patient takes tramadol and Vicodin as needed at home. Today, the patient notes her pain to be mainly in the back of her head and neck and tooth pain. Plan: Patient will be continued on her home medications while she is hospitalized, providing her respiratory status does not become compromised. (5) History of pulmonary embolism Impression: Patient has history of pulmonary embolism and is on Xarelto. Patient was previously on oxygen at home but stopped using oxygen on presentation. Patient has been on high flow O2 for the majority of this admission. Plan: We will set up home oxygen prior to discharge. (6) Essential thrombocytosis Impression: Patient is a history of essential thrombocytosis and is on hydroxyurea at home. In the past the patient has had issues with compliance to hydroxyurea however states that she is currently taking it. She has a known blood disorder called Dae 2 mutation. Platelets today were elevated at 413. Plan: Continue on her home dose and monitor her platelet levels. (7) Hypertension Impression: Blood pressure was noted to be 155/89. Spironolactone was increased today, which may help with HTN. Plan: We will continue to monitor and add or increase medications as needed. Qualifiers: Hypertension type: essential hypertension Qualified Code(s): I10 - Essential (primary) hypertension (8) Anxiety Impression: The patient has a long history of anxiety and bipolar disorder. The patient is anxious on presentation. The patient will be continued on her home doses of Risperdal, Cymbalta and Klonopin. Plan: We will continue to monitor and Klonopin was decreased as per caregiver report. (9) DAE-2 gene mutation Impression: Patient has a known history of this and has re-currant PEs. 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 Recent repeat Chest CT to rule out PE was completed and negative for pulmonary emboli. Plan: Continue to monitor.
[2017-03-03] MEDS: ZOLPIDEM 5 MG TABLET PO PRN (00:15)
[2017-03-03] MEDS: AMOX/CLAV 875 MG/125 MG TABLET PO SCH ×2 (00:15→09:10)
[2017-03-03] MEDS: clonazePAM 0.5 MG TABLET PO SCH ×2 (06:36→13:18)
[2017-03-03] MEDS: PANTOPRAZOLE 40 MG TABLET PO SCH (06:37)
[2017-03-03] MEDS: FUROSEMIDE 40 MG TABLET PO SCH ×2 (06:37→13:18)
[2017-03-03] MEDS: SODIUM CHLORIDE FLUSH 0.9% 10 ML SYRINGE IVP SCH ×2 (06:38→13:19)
[2017-03-03] MEDS: SACCHAROMYCES BOULARDII 250 MG CAPSULE PO SCH ×2 (06:38→09:10)
[2017-03-03 06:50] LABS: BASOPHILS % (AUTO) 0.4 %; EOSINOPHILS % (AUTO) 0.2 %; HGB - HEMOGLOBIN 12.7 g/dL (12.0-16.0); LYMPHOCYTES # (AUTO) 0.5 10^3/uL (1.5-3.5); LYMPHOCYTES % (AUTO) 4.2 %; MEAN CORPUSCULAR HEMOGLOBIN 24.4 pg (27.0-31.0); MEAN CORPUSCULAR HGB CONC 29.3 g/dL (32.0-36.0); MEAN CORPUSCULAR VOLUME 83.2 fL (81.0-99.0); MEAN PLATELET VOLUME 8.9 fL (7.9-10.8); MONOCYTES # (AUTO) 1.9 10^3/uL (0.0-1.0); MONOCYTES % (AUTO) 15.8 %; NEUTROPHILS # (AUTO) 9.4 10^3/uL (1.5-6.6); NEUTROPHILS % (AUTO) 79.4 %; PLT - PLATELET COUNT 413 10^3/uL (130-450); RED CELL DISTRIBUTION WIDTH 22.6 % (12.0-15.0); WHITE BLOOD COUNT 11.8 x10^3/uL (4.8-10.8)
[2017-03-03] MEDS: HYDROcod/ACETAM 10 MG/325 MG TABLET PO PRN (06:53)
[2017-03-03 06:57] LABS: ALBUMIN 3.3 g/dL (3.2-5.5); ALBUMIN/GLOBULIN RATIO 1.2 (1.0-2.2); BILIRUBIN,TOTAL 0.9 mg/dL (0.2-1.0); CALCIUM 9.6 mg/dL (8.5-10.3); CREATININE 1.1 mg/dL (0.4-1.0); TOTAL PROTEIN 6.1 g/dL (6.7-8.2)
[2017-03-03] MEDS: METOPROLOL SUCCINATE 25 MG TABLET PO SCH (09:08)
[2017-03-03] MEDS: DULoxetine 30 MG CAPSULE PO SCH (09:08)
[2017-03-03] MEDS: SPIRONOLACTONE 25 MG TABLET PO SCH (09:08)
[2017-03-03] MEDS: RIVAROXABAN 10 MG TABLET PO SCH (09:09)
[2017-03-03] MEDS: predniSONE 20 MG TABLET PO SCH (09:09)
[2017-03-03] MEDS: HYDROXYUREA 500 MG CAPSULE PO SCH (09:09)
[2017-03-03] MEDS: POLYETHYLENE GLYCOL 3350 17 GM PACKET PO SCH (09:10)
[2017-03-03] MEDS: traMADol 50 MG TABLET PO PRN ×2 (09:10→14:35)
[2017-03-03] MEDS: SODIUM CHLORIDE FLUSH 0.9% 10 ML SYRINGE IVP PRN (09:11)
[2017-03-03] MEDS: AZITHROMYCIN INJ 500 MG in SODIUM CHLORIDE 0.9% 250 ML IV SCH (09:11)
[2017-03-03] MEDS: SODIUM CHLORIDE 0.65% NASAL SPRAY NAS SCH (09:12)
[2017-03-03] MEDS: CALCITONIN NASAL SPRAY NAS SCH (09:12)
[2017-03-03] MEDS: ALBUTEROL NEB 2.5 MG/3 ML INH PRN (10:00)
[2017-03-03] MEDS: FORMOTEROL FUMARATE NEB 20 MCG/2 ML INH SCH (10:00)
[2017-03-03] MEDS: BUDESONIDE 0.5 MG/2 ML NEB INH SCH (10:00)
[2017-03-03 13:36] VITALS: BP 109/70
--- NOTE | 2017-03-03 13:44 | Discharge Plan ---
Discharge Plan Disposition: Home, Self Care Condition: Good Prescriptions: Amox/Clav 875/125 [Augmentin 875/125] 1 tab PO BID 10 Days #20 tablet Furosemide [Lasix] 40 mg PO BIDDIURETIC #60 tablet Spironolactone [Aldactone] 25 mg PO BID #60 tablet Diet: Regular Activity Restrictions: No Restrictions Shower Restrictions: No Driving Restrictions: No Weight Bearing: Full Weight Instruction Topics: Amoxicillin Clavulanic Acid tablets, Furosemide tablets, Spironolactone tablets, Oxygen Home Use, COPD Dc, COPD Dx Additional Instructions or Follow Up instructions: You came in with progressive shortness of breath. [address] scans were completed and showed no pulmonary emboli. You need home oxygen, which will be provided for discharge. You should continue on all of your medications. I have given you a new one for your sore teeth, that should continue for about 10 more days. Please see your PCP within the week because I have added Spironolactone to your daily medications to help with your worsening pulmonary hypertension. Please consider cardiac rehabilitation as this will keep your heart at optimal functioning. Follow-Up Care: [facility] - CHF Classes No Smoking: If you smoke, Please STOP! Call for help. Follow-up with: Winter Rosado MD [Primary Care Provider] -
--- NOTE | 2017-03-03 13:50 | DISCHARGE SUMMARY ---
Discharge Summary Admit Date: 02/25/17 Discharge Date: 03/03/17 Discharging Provider: KAIDEN Bermudez Primary Care Provider: Winter Rosado Code Status: Attempt Resuscitation Condition at Discharge: Good Discharge Disposition: 01 Home, Self Care - DIAGNOSES Admission Diagnoses: Chronic obstructive pulmonary disease, unspecified (J44.9) Altered mental status, unspecified (R41.82) Personal history of pulmonary embolism (Z86.711) Essential (hemorrhagic) thrombocythemia (D47.3) Essential (primary) hypertension (I10) Other chronic pain (G89.29) Anxiety disorder, unspecified (F41.9) Discharge Diagnoses with Status of Each Condition: Pulmonary hypertension (I27.20) chronic, medically managed. COPD (chronic obstructive pulmonary disease) (J44.9) chronic, stable, home oxygen. Altered mental state (R41.82) resolved, improved from admission. Chronic pain (G89.29) ongoing, stable. History of pulmonary embolism (Z86.711) stable, ruled additional PEs on this hospital stay as a cause to her high oxygen needs. Hypertension (I10) chronic, controlled. Anxiety (F41.9) chronic, medication controlled. 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 - HPI History of Present Illness: HPI per Dr. 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 The patient states that her symptoms started about 2-3 days ago. She states that she first began feeling short of breath with exertion and this continued to worsen over the last couple of days. She states that she was having wheezing and chest tightness try to take her inhalers at home but did not have relief of symptoms. The patient states that she is also noticed that she has had increasing weakness, cramps in her shoulders and felt increasingly fatigued with any exertion. The patient denies any lower extremity edema, orthopnea, PND, cough, fevers or chills. She states today [facility] and just going from her car into the [facility] she became so short of air that she decided she needed to go to the emergency room once she got into [facility]. She states that she had to stop and she was out of breath and felt extremely anxious and felt as though she was going to . Patient otherwise denies any headaches, blurred vision, runny nose, sore throat , nasal congestion, abdominal pain, nausea, vomiting, diarrhea, constipation, urinary urgency, urinary frequency, dysuria, increased lower extremity swelling , joint pains, muscle aches, neck stiffness, recent unintentional weight loss, weight gain, polydipsia, difficulty swallowing or any focal neurological deficits. On presentation to the emergency department the patient was afebrile and vital signs were within normal limits aside from the fact that she was hypoxic. Patient's O2 sats were anywhere between 85-88% on room air. The patient previously was on oxygen but had stopped using it so the oxygen company stopped giving her oxygen. The patient's lab work revealed a creatinine of 1.4 which is slightly elevated from her baseline of 1.1. The patient's troponin was negative she had no leukocytosis and her platelet count was chronically elevated. The patient did have a left shift on differential with elevated neutrophils and decreased lymphocytes. The patient's flu swab was negative. The patient did undergo a chest x-ray which revealed stable mild cardiac enlargement but clear lungs. Given the patient's history of pulmonary embolism and the fact that she had just recently come back from a long drive to [place] there was concern for pulmonary embolism therefore patient underwent a CT angiogram of her lungs. The CT revealed no acute pulmonary atrial filling defects. Chronic non-filling of the right middle and lower lobe pulmonary arteries from previous PE. Irregular right lung opacities mostly in the right lower lobe similar to previous CT. With interval development of mediastinal lymphadenopathy. The patient appeared to be wheezy on examination and was given several doses of nebulizer treatments as well as Rocephin in the emergency department. She was also given a dose of Solu-Medrol. The patient appear to have some improvement of the wheezing but remained hypoxic and it was decided the patient would be best off admitted to the hospital for a COPD exacerbation. - HOSPITAL COURSE Hospital Course: The following problems/diagnoses were prevalent for this hospital stay: Pulmonary hypertension: Patient presented with shortness of breath and weakness in her legs as well as generalized fatigue. Chest CT completed on did not show any new pulmonary embolism. An echocardiogram on this admission shows a worsening of right heart function; RV systolic function is severely impaired, RVSP at rest is 72mmHg. Patient was continued on Duo nebs, as needed, Solu-Medrol 40 mg 3 times daily that was changed to oral prednisone, IV azithromycin that was changed to PO, and Spironolactone daily. Supplemental oxygen, Budesonide twice daily and formoterol twice daily. Continuous oxygen was titrated down to 4-5L nasal cannula at the time of discharge. Patient's oxygen requirements continued at 5-10L per high flow to maintain O2 saturations >90%. Despite further testing including laboratory monitoring, chest CT with contrast to check for pulmonary emboli that was negative. Due to medication adjustments, patient had an extended hospital stay. COPD exacerbation: Patient presented with shortness of breath and weakness in her legs as well as generalized fatigue. The patient had no evidence of pneumonia or increased pulmonary congestion on x-ray. A chest CT did not show any new pulmonary embolism. Echocardiogram on this admission shows a worsening of her pulmonary HTN and patient continues on high flow O2 at 5-10L. Spot check oxygen saturation and titrated oxygen throughout her stay. This is likely a consequence of her longstanding COPD. Patient was continued on Duo nebs, as needed, PO prednisone, Supplemental oxygen, Budesonide twice daily and formoterol twice daily. Patient will continue home O2 upon discharge. Altered mental status: Patient was very somnolent at times, with noted AMS. She was breathing in a shallow pattern and had daytime sleepiness, much of the time. Patient is dependent on pain medications and notes her pain to be in her back, torso and teeth. Patient's respiratory status was supported with oxygen and breathing treatments via RT therapy. Chronic pain: Patient has chronic back pain from scoliosis and previous spinal surgery. Patient takes tramadol and Vicodin as needed at home. Patient noted her pain to be mainly in the back of her head and neck and tooth pain. Patient will be continued on her home medications while she is hospitalized, providing her respiratory status does not become compromised. She was sent home on a short coarse of PO antibiotics given her prolonged complaints of tooth pain. History of pulmonary emboli: Patient has history of pulmonary embolism and is on Xarelto. Patient was previously on oxygen at home but stopped using oxygen on presentation. Patient has been on high flow O2 for the majority of this admission, which was weaned down to 4-5L nasal cannula at the time of discharge. Essential thrombocytosis: Patient is a history of essential thrombocytosis and is on hydroxyurea at home. In the past the patient has had issues with compliance to hydroxyurea however states that she is currently taking it. She has a known blood disorder called Daniela 2 mutation. Platelets were elevated at 400 -500 during her hospital stay. Continue on her home dose and monitor her platelet levels. Hypertension: Blood pressure was monitored during her hospital stay and Spironolactone was added and titrated up, which may help with HTN. Anxiety: The patient has a long history of anxiety and bipolar disorder. The patient was anxious on presentation. The patient will be continued on her home doses of Risperdal, Cymbalta and Klonopin. Klonopin was decreased as per caregiver report. Daniela-2 gene mutation: Patient has a known history of this and has re-currant PEs. assisted xerelto. Recent repeat Chest CT to rule out PE was completed and negative for pulmonary emboli. Disposition: Patient was discharged home in stable condition with her care- chicken stuffer via private car with instructions to contact pulmonary. - ALLERGIES Allergies/Adverse Reactions: Allergies Allergy/AdvReac Type Severity Reaction Status Date / Time diphenhydramine HCl * Allergy Mild Rash Verified 02/25/17 11:52 [From Benadryl] morphine Allergy Mild Nausea Verified 02/25/17 11:52 iron dextran complex Allergy Unknown Verified 02/25/17 11:52 - MEDICATIONS Home Medications: Ambulatory Orders Medication Instructions Recorded Confirmed clonazePAM [Klonopin] 0.5 - 1 mg PO TID PRN 10/01/12 02/25/17 Mirtazapine [Remeron] 30 mg PO QPM 05/19/14 02/25/17 traMADol [Ultram] 50 mg PO QID PRN 08/17/15 02/25/17 Omeprazole 20 mg PO BID 12/30/15 02/25/17 Metoprolol Succinate 25 mg PO DAILY 01/13/16 02/25/17 Albuterol Sulf [Ventolin Hfa 2 puffs INH Q4H PRN 03/03/16 02/25/17 Inhaler] Budesonide/Formoterol Fumarate 2 puffs INH BID 03/03/16 02/25/17 [Symbicort 160-4.5 Mcg Inhaler] DULoxetine [Cymbalta] 30 mg PO DAILY 03/03/16 02/25/17 Hydroxyurea 500 mg PO DAILY 03/03/16 02/25/17 Rivaroxaban [Xarelto] 20 mg PO DAILY 03/03/16 02/25/17 hydrOXYzine pamoate [Hydroxyzine 50 mg PO DAILY PRN 03/03/16 02/25/17 Pamoate] risperiDONE [RisperDAL] 1 mg PO QPM 03/03/16 02/25/17 Calcitonin [Fortical] 1 sprays LUIS DAILY #1 bottle 12/11/16 02/25/17 Amox/Clav 875/125 [Augmentin 1 tab PO BID 10 Days #20 tablet 03/03/17 875/125] Furosemide [Lasix] 40 mg PO BIDDIURETIC #60 tablet 03/03/17 Spironolactone [Aldactone] 25 mg PO BID #60 tablet 03/03/17 - PHYSICAL EXAM AT DISCHARGE General Appearance: positive: No acute distress, Alert Eyes Bilateral: positive: Normal inspection, PERRL ENT: positive: ENT inspection nml, Pharynx nml, No signs of dehydration Neck: positive: Nml inspection, Thyroid nml, No JVD, Stiff neck Respiratory: positive: Chest non-tender, Wheezes, Rales Cardiovascular: positive: Irregularly irregular, Systolic murmur, Gallop/S4 Peripheral Pulses: positive: 1+ Abdomen: positive: Non-tender, Nml bowel sounds, Hepatomegaly Back: positive: Nml inspection Skin: positive: No rash, Warm, Dry, Pallor Extremities: positive: Non-tender, Pedal edema (mild.) Neurologic/Psychiatric: positive: Disoriented to time, Weakness, Sensory loss, Depressed mood/affect, Other (forgetful and unaware of her medical conditions.) Reflexes: Bicep (R): 2+, Bicep (L): 2+ - LABS Result Diagrams: 03/03/17 06:15 03/03/17 06:15 - DIAGNOSTIC IMAGING Diagnostic Imaging Results: Final report reviewed Diagnostic Imaging Results Comments: Diagnostic Imaging Comments: Chest CT PE: FINDINGS: Pulmonary Arteries: Diagnostic quality: Adequate through the segmental arteries. No evidence for acute or chronic pulmonary emboli. Again noted is chronic nonfilling of the right lower lobe and right middle lobe pulmonary arteries. RV/LV is within normal limits. There is no interventricular septal bowing. There is no reflux of contrast material in the IVC. Lungs/Pleura: Again seen are geographically marginated areas of groundglass opacity in both lungs. Scattered pleural parenchymal scarring appear unchanged. Patchy opacity in the right lower lobe (5/88) appears unchanged compared to prior. No new focal consolidation is seen. No pneumothorax. Mediastinum: Heart size is normal. No pericardial effusion. No enlarged mediastinal or hilar lymph nodes. Previously noted right supraclavicular lymph node and paratracheal lymph node are decreased, now normal. Thoracic Aorta: Unremarkable. Upper Abdomen: Small hiatal hernia noted. Stable bilateral adrenal nodules measuring 1 cm each. Other: None. IMPRESSION: 1. No evidence for acute pulmonary thromboemboli. 2. Again noted is chronic nonfilling of the right middle lobe and lower lobe pulmonary arteries. 3. There is a marginated pulmonary groundglass opacities bilaterally could reflect chronic small airways disease. 4. Focal right lower lobe consolidation is unchanged and may represent infection or aspiration. 5. Previously noted enlarged mediastinal lymph nodes now appear normal size. - FOLLOW UP Follow Up: You came in with progressive shortness of breath. [address] scans were completed and showed no pulmonary emboli. You need home oxygen, which will be provided for discharge. You should continue on all of your medications. I have given you a new one for your sore teeth, that should continue for about 10 more days. Please see your PCP within the week because I have added Spironolactone to your daily medications to help with your worsening pulmonary hypertension. Please consider cardiac rehabilitation as this will keep your heart at optimal function - TIME SPENT Time Spent in Discharge (Minutes): 60
== END 2017-03-03 15:55 | disposition home or self-care (01) | DRG 315 ==
LOC: ED 11:12 → MS2 14:25
PROVIDERS: ADMIT Internal Medicine; ATTEND Nurse Practitioner
DX: J44.9 Chronic obstructive pulmonary disease, unspecified (principal); I27.20 Pulmonary hypertension, unspecified; J44.1 Chronic obstructive pulmonary disease with (acute) exacerbation; F11.20 Opioid dependence, uncomplicated; R09.02 Hypoxemia; D47.3 Essential (hemorrhagic) thrombocythemia; I12.9 Hypertensive chronic kidney disease with stage 1 through stage 4 chronic kidney disease, or unspecified chronic kidney disease; N18.3 Chronic kidney disease, stage 3 (moderate); G89.29 Other chronic pain; M41.9 Scoliosis, unspecified; F41.9 Anxiety disorder, unspecified; F31.9 Bipolar disorder, unspecified; G62.9 Polyneuropathy, unspecified; K21.9 Gastro-esophageal reflux disease without esophagitis; K08.89 Other specified disorders of teeth and supporting structures; Z86.718 Personal history of other venous thrombosis and embolism; Z79.01 Long term (current) use of anticoagulants; Z86.711 Personal history of pulmonary embolism; Z86.73 Personal history of transient ischemic attack (TIA), and cerebral infarction without residual deficits; Z79.899 Other long term (current) drug therapy; Z87.891 Personal history of nicotine dependence; Z91.19 Patient's noncompliance with other medical treatment and regimen
CPT/HCPCS: 36415; 36600; 70450; 71010; 71275; 80048; 80053; 80306; 82550; 82803; 83690; 83880; 84443; 84484; 85025; 85379; 87275; 87276; 93005; 93306; 94640; 96361; 96374; 96375; 99283; 99284; 99285

== ENCOUNTER 2017-04-19 13:29 | Emergency (ER) | payer MEDICARE, MEDICAID ==
[2017-04-19] MEDS ORDERED: ALBUTEROL NEB 2.5 MG/3 ML INH STA (14:38)
--- NOTE | 2017-04-19 14:40 | ED Physician Documentation ---
PD HPI DYSPNEA - Stated complaint Stated Complaint: LEG PX - Chief complaint Chief Complaint: Cardiac - History obtained from History obtained from: Patient - History of Present Illness Timing - onset: Other (66-year-old woman with history of essential thrombocytosis and pulmonary embolism requiring open thrombectomy, since then she has had chronic dyspnea and borderline pulse oximetries although she is noncompliant with home oxygen. She is on Xarelto, initially says she has been compliant completely but admits to missing at least one dose in the last week. She has had 1 day of left-sided calf and pedal edema with increased dyspnea but no cough or chest pain.) Review of Systems Constitutional: denies: Fever, Chills Cardiac: reports: Chest pain / pressure, Pedal edema, Calf pain. denies: Palpitations Respiratory: reports: Dyspnea. denies: Cough GI: denies: Abdominal Pain PD PAST MEDICAL HISTORY - Past Medical History Cardiovascular: Hypertension, Deep vein thrombosis, Pulmonary embolism Respiratory: COPD, Pneumonia, Shortness of breath, Other Neuro: Headache/migraine, Peripheral neuropathy, Other Endocrine/Autoimmune: None GI: GERD FEED MILL TENDER: None : Renal insuffiency HEENT: None Psych: Depression, Anxiety Musculoskeletal: Scoliosis Derm: None - Past Surgical History Past Surgical History: Yes Ortho: Spine surgery /FEED MILL TENDER: section, Hysterectomy - Present Medications Home Medications: Ambulatory Orders Medication Instructions Recorded Confirmed clonazePAM [Klonopin] 0.5 - 1 mg PO TID PRN 10/01/12 04/19/17 Mirtazapine [Remeron] 30 mg PO QPM 05/19/14 04/19/17 traMADol [Ultram] 50 mg PO Q4H PRN MDD 5 TABLETS 08/17/15 04/19/17 Omeprazole 20 mg PO BID 12/30/15 04/19/17 Metoprolol Succinate 25 mg PO DAILY 01/13/16 04/19/17 Albuterol Sulf [Ventolin Hfa 2 puffs INH Q4H PRN 03/03/16 04/19/17 Inhaler] Budesonide/Formoterol Fumarate 2 puffs INH BID 03/03/16 04/19/17 [Symbicort 160-4.5 Mcg Inhaler] DULoxetine [Cymbalta] 30 mg PO DAILY 03/03/16 04/19/17 Hydroxyurea 500 mg PO DAILY 03/03/16 04/19/17 Rivaroxaban [Xarelto] 20 mg PO DAILY 03/03/16 04/19/17 hydrOXYzine pamoate [Hydroxyzine 50 mg PO DAILY PRN 03/03/16 04/19/17 Pamoate] risperiDONE [RisperDAL] 1.5 mg PO QPM 03/03/16 04/19/17 Furosemide [Lasix] 40 mg PO BIDDIURETIC #60 tablet 03/03/17 04/19/17 Spironolactone [Aldactone] 25 mg PO BID #60 tablet 03/03/17 04/19/17 - Allergies Allergies/Adverse Reactions: Allergies Allergy/AdvReac Type Severity Reaction Status Date / Time diphenhydramine HCl * Allergy Mild Rash Verified 02/25/17 11:52 [From Benadryl] morphine Allergy Mild Nausea Verified 02/25/17 11:52 iron dextran complex Allergy Unknown Verified 02/25/17 11:52 - Social History Does the pt smoke?: No Smoking Status: Never smoker Does the pt drink ETOH?: No Does the pt have substance abuse?: No - Immunizations Immunizations are current?: Yes - POLST Patient has POLST: No POLST Status: Full Code PD ED PE NORMAL - Vitals Vital signs reviewed: Yes - General General: Alert and oriented X 3, No acute distress - HEENT HEENT: PERRL, EOMI - Neck Neck: Supple, no meningeal sign, No bony TTP - Cardiac Cardiac: RRR, No murmur - Respiratory Respiratory: No respiratory distress, Other (Mild rhonchi, left base, mostly clear) - Abdomen Abdomen: Non tender - Extremities Extremities: Other (Significant pitting pedal edema of the left leg, but feet are warm and well perfused) - Neuro Neuro: Alert and oriented X 3, Normal speech Results - Vitals Vitals: Vital Signs - 24 hr 04/19/17 04/19/17 04/19/17 13:47 14:32 15:32 Temperature 37.0 C Heart Rate 100 95 93 Respiratory 20 16 18 Rate Blood Pressure 105/78 114/84 H 109/76 O2 Saturation 82 L 92 92 04/19/17 04/19/17 16:03 16:24 Temperature Heart Rate 91 98 Respiratory 18 18 Rate Blood Pressure 101/78 O2 Saturation 96 Oxygen O2 Source [] 3L O2 via NC O2 Source Nasal cannula - Labs Labs: Laboratory Tests 04/19/17 04/19/17 04/19/17 15:44 15:44 15:44 WBC 12.9 H RBC 5.10 Hgb 12.0 Hct 39.7 MCV 77.9 L MCH 23.6 L MCHC 30.3 L RDW 26.3 H Plt Count 737 H MPV 8.6 Neut # 10.3 H Lymph # 0.3 L Calhoun # 2.2 H Eos # 0.0 Baso # 0.1 Absolute Nucleated RBC 0.12 Nucleated RBC % 0.9 Manual Slide Review Indicated Platelet Estimate INCREASED (>450,000) Platelet Morphology 2+ GIANT PLATELETS RBC Morph Micro Appear 1+ TARGET CELLS PT 15.9 H INR 1.4 H APTT 24.9 Sodium 137 Potassium 4.3 Chloride 104 Carbon Dioxide 23 Anion Gap 10.0 BUN 16 Creatinine 1.1 H Estimated GFR (MDRD) 50 L Glucose 116 H Calcium 9.2 Total Bilirubin 1.3 H AST 19 ALT 14 Alkaline Phosphatase 96 Total Protein 7.5 Albumin 3.6 Globulin 3.9 Albumin/Globulin Ratio 0.9 L Lipase 15 L - Rads (name of study) CT PA Radiology: EMP read contemporaneously (No acute PE, stable chronic embolism of the right side with other findings of bronchiectasis and right heart enlargement.) LLE Sono Radiology: Discussed with rads (extensive DVT), EMP read contemporaneously Procedures - General procedure General procedure: She was difficult for IV access, the nurse tried and failed. I personally placed a long 20-gauge IV in the right deep brachial vein using real-time ultrasound guidance after ChloraPrep and labs were drawn and it flushed well. PD MEDICAL DECISION MAKING - ED course ED course: 66-year-old woman with history of DVT and thrombocytosis presents with increased leg pain and dyspnea. 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 She was started on high-dose heparin. I consulted the vascular surgeon at [facility] who recommended transfer to the hospitalist service there for potential intervention. Accepted by Dr Cain at [facility] at 1755. Departure - Departure Disposition: 02 Transfer Acute Care Hosp Clinical Impression: Phlegmasia cerulea dolens of left lower extremity, Dyspnea Condition: Serious
[2017-04-19] MEDS ORDERED: IOPAMIDOL-300 100 ML VIAL ONE (14:55)
[2017-04-19] MEDS ORDERED: HYDROcod/ACETAM 5/325 MG TABLET PO STA (14:57)
[2017-04-19] MEDS ORDERED: HEPARIN 25000UNITS/500ML (D5W) 25,000 UNIT/500 ML BAG IV STA (15:41)
[2017-04-19] MEDS ORDERED: HEPARIN 5,000 UNIT/ML VIAL IVP ONE (15:41)
[2017-04-19 15:54] LABS: BASOPHILS # (AUTO) 0.1 10^3/uL (0.0-0.1); BASOPHILS % (AUTO) 0.9 %; LYMPHOCYTES # (AUTO) 0.3 10^3/uL (1.5-3.5); LYMPHOCYTES % (AUTO) 2.4 %; MEAN CORPUSCULAR HEMOGLOBIN 23.6 pg (27.0-31.0); MEAN CORPUSCULAR HGB CONC 30.3 g/dL (32.0-36.0); MEAN CORPUSCULAR VOLUME 77.9 fL (81.0-99.0); MEAN PLATELET VOLUME 8.6 fL (7.9-10.8); MONOCYTES # (AUTO) 2.2 10^3/uL (0.0-1.0); MONOCYTES % (AUTO) 16.9 %; NEUTROPHILS # (AUTO) 10.3 10^3/uL (1.5-6.6); NEUTROPHILS % (AUTO) 79.8 %; PLT - PLATELET COUNT 737 10^3/uL (130-450); RED CELL DISTRIBUTION WIDTH 26.3 % (12.0-15.0); WHITE BLOOD COUNT 12.9 x10^3/uL (4.8-10.8)
[2017-04-19 15:58] LABS: INR 1.4 (0.8-1.2); PT - PROTHROMBIN TIME 15.9 secs (9.9-12.6)
[2017-04-19 16:03] LABS: ALBUMIN 3.6 g/dL (3.2-5.5); ALBUMIN/GLOBULIN RATIO 0.9 (1.0-2.2); BILIRUBIN,TOTAL 1.3 mg/dL (0.2-1.0); CALCIUM 9.2 mg/dL (8.5-10.3); CREATININE 1.1 mg/dL (0.4-1.0); TOTAL PROTEIN 7.5 g/dL (6.7-8.2)
[2017-04-19 16:08] LABS: PLATELET ESTIMATE, MANUAL INCREASED (>450,000) (NORMAL); PLATELET MORPHOLOGY 2+ GIANT PLATELETS (NORMAL)
[2017-04-19] MEDS ORDERED: IOPAMIDOL-300 100 ML VIAL IVP ONE (16:54)
--- NOTE | 2017-04-19 17:20 | CT Report ---
EXAM: CT ANGIOGRAM CHEST EXAM DATE: 04/19/2017 05:00 PM. CLINICAL HISTORY: Dyspnea. COMPARISON: 02/25/2017. TECHNIQUE: Routine helical imaging was performed through the chest in the pulmonary arterial phase. I V Contrast: 80 cc Isovue 300. Reconstructions: Coronal 3-D MIP reconstructions.Sagittal and coronal. In accordance with CT protocol optimization, one or more of the following dose reduction techniques w ere utilized for this exam: automated exposure control, adjustment of mA and/or KV based on patient s ize, or use of iterative reconstructive technique. FINDINGS: Pulmonary Arteries: Diagnostic quality: Adequate through the segmental arteries. No evidence of acute pulmonary embolism. There is hypoplasia and nonopacification of pulmonary artery supplying the right lower lobe. There is relative right heart enlargement which is stable. Lungs/Pleura: Relatively stable mosaic parenchymal pattern within the lungs. There is bronchiectasis within the right base. There is some mild peribronchial nodular density within the right lower lobe w hich is relatively stable. There is no evidence of pleural effusion. No pneumothorax. Mediastinum: Heart size is within normal limits. As above, there is relative right heart enlargement. This is stable. There is mild enlargement of the main pulmonary artery. There are no enlarged axilla ry, supraclavicular, mediastinal, or hilar lymph nodes. Thoracic Aorta: There is thoracic aortic tortuosity. No acute aortic abnormalities are seen. Upper Abdomen: There is a small hiatal hernia. Visualized portions of the upper abdominal organs demo nstrate no acute abnormalities. Other: None. IMPRESSION: 1. No evidence of acute pulmonary embolism. 2. Stable hypoplasia and hypoperfusion of the pulmonary arteries supplying the right lung base. This is consistent with chronic embolus. 3. Stable mosaic parenchymal pattern. This is also consistent with chronic pulmonary emboli. 4. Stable nodular and groundglass opacities within the right lower lobe. This may represent scarring or organizing pneumonia. 5. Relatively stable bronchiectasis within the right lung base. 6. No evidence of acute infiltrate. No effusion or pneumothorax. 7. There is stable relative right heart enlargement. 8. There is a small hiatal hernia. Visualized portions of the upper abdominal organs demonstrate no a cute abnormalities. [facility] Referring Provider Line: [phone] SITE ID: [id number]
[2017-04-19] MEDS ORDERED: HYDROmorphone 1 MG/ML SYRINGE IVP STA (17:38)
--- NOTE | 2017-04-19 18:01 | Ultrasound Report ---
LEFT LEG VENOUS DUPLEX: 04/19/2017 CLINICAL INDICATION: Leg pain. COMPARISON: 04/09/2016 TECHNIQUE: Real-time sonographic vascular imaging was performed by the software development test engineer through the left lower extremity utilizing both color-flow and Doppler spectral analysis. Multiple medical device sales representative static images were saved for review. FINDINGS: There is diffuse thrombus, involving the left common femoral, greater saphenous, profunda femoris, superficial femoral veins, the left popliteal vein, and the visualized left calf veins. Scanning of the left external iliac vein demonstrates thrombosis up into the pelvis, as far as could be visualized proximally. This DVT is more extensive than previously documented on 04/09/2016. IMPRESSION: EXTENSIVE LEFT LEG DVT, FROM THE EXTERNAL ILIAC VEIN TO THE CALF VEINS. EXTENT OF DVT HAS INCREASED FROM 04/09/2016. CRITICAL RESULT: Results called to Dr. Balderas in the emergency department on 04/19/2017 at 1545 hours. TD: 04/19/2017 17:59
[2017-04-19] MEDS ORDERED: LORazepam 0.5 MG TABLET PO STA (21:02)
[2017-04-19 21:09] VITALS: BP 104/62
== END 2017-04-19 21:19 | disposition short-term general hospital (02) ==
LOC: ED 13:29
DX: I80.202 Phlebitis and thrombophlebitis of unspecified deep vessels of left lower extremity (principal); R06.00 Dyspnea, unspecified; I10 Essential (primary) hypertension; G62.9 Polyneuropathy, unspecified; Z86.718 Personal history of other venous thrombosis and embolism; Z86.711 Personal history of pulmonary embolism; Z79.02 Long term (current) use of antithrombotics/antiplatelets
CPT/HCPCS: 36415; 71275; 80053; 83690; 85025; 85610; 85730; 93971; 94640; 96365; 96366; 96375; 99284; A9270; J1170; J7613; Q9967

== ENCOUNTER 2017-04-19 21:10 | Outpatient (CLI) | payer MEDICARE, MEDICAID | END 2017-04-19 21:11 | disposition short-term general hospital (02) | LOC: EMS 21:10 | PROVIDERS: ATTEND Surgery | DX: I82.402 Acute embolism and thrombosis of unspecified deep veins of left lower extremity (principal); Z79.01 Long term (current) use of anticoagulants | CPT/HCPCS: A0425; A0426 ==

== ENCOUNTER 2017-05-05 17:00 | Outpatient (CLI) | payer MEDICARE, MEDICAID | END 2017-05-05 17:01 | disposition critical access hospital (66) | LOC: EMS 17:00 | PROVIDERS: ATTEND Surgery | DX: R09.89 Other specified symptoms and signs involving the circulatory and respiratory systems (principal) | CPT/HCPCS: A0425; A0427 ==

== ENCOUNTER 2017-05-05 17:05 | Inpatient (IN) | payer MEDICARE, MEDICAID ==
--- NOTE | 2017-05-05 17:38 | ED Physician Documentation ---
History of Present Illness - Stated complaint Stated Complaint: ALOC - Chief complaint Chief Complaint: Resp - History obtained from History obtained from: Patient, EMS - History of Present Illness Timing: Today Pain level max: 5 Pain level now: 5 Improved by: supplemental O2 Worsened by: walking - Additonal information Additional information: Patient is a 66-year-old female who presents to the emergency department after suffering a near respiratory arrest at home today. She was recently at [facility] for a extensive DVT in the left leg. She signed out AMA this morning and her caregiver took her home. When she got home she tried to walk up to steps, became severely short of breath and had an O2 saturation in the 60s when EMS arrived. They were able to pack her back into a normal saturation and color improved. She is not requiring supplemental oxygen. Quickly desaturates without supplemental O2. She states that she would like Klonopin as she has not had her Klonopin since this morning Review of Systems Ten Systems: 10 systems reviewed and negative Constitutional: denies: Fever, Chills Ears: denies: Ear pain Nose: denies: Rhinorrhea / runny nose, Congestion Throat: denies: Sore throat Respiratory: denies: Cough, Wheezing GI: denies: Abdominal Pain, Vomiting, Diarrhea Skin: denies: Rash Musculoskeletal: denies: Neck pain, Back pain Neurologic: denies: Focal weakness, Numbness, Headache PD PAST MEDICAL HISTORY - Past Medical History Cardiovascular: Hypertension, Deep vein thrombosis, Pulmonary embolism Respiratory: COPD, Pneumonia, Shortness of breath, Other Neuro: Headache/migraine, Peripheral neuropathy, Other Endocrine/Autoimmune: None GI: GERD MISSILE 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 TECHNICIAN: None : Renal insuffiency HEENT: None Psych: Depression, Anxiety Musculoskeletal: Scoliosis Derm: None - Past Surgical History Past Surgical History: Yes Ortho: Spine surgery /MISSILE 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 TECHNICIAN: section, Hysterectomy - Present Medications Home Medications: Ambulatory Orders Medication Instructions Recorded Confirmed clonazePAM [Klonopin] 0.5 - 1 mg PO TID PRN 10/01/12 04/19/17 Mirtazapine [Remeron] 30 mg PO QPM 05/19/14 04/19/17 traMADol [Ultram] 50 mg PO Q4H PRN MDD 5 TABLETS 08/17/15 04/19/17 Omeprazole 20 mg PO BID 12/30/15 04/19/17 Metoprolol Succinate 25 mg PO DAILY 01/13/16 04/19/17 Albuterol Sulf [Ventolin Hfa 2 puffs INH Q4H PRN 03/03/16 04/19/17 Inhaler] Budesonide/Formoterol Fumarate 2 puffs INH BID 03/03/16 04/19/17 [Symbicort 160-4.5 Mcg Inhaler] DULoxetine [Cymbalta] 30 mg PO DAILY 03/03/16 04/19/17 Hydroxyurea 500 mg PO DAILY 03/03/16 04/19/17 Rivaroxaban [Xarelto] 20 mg PO DAILY 03/03/16 04/19/17 hydrOXYzine pamoate [Hydroxyzine 50 mg PO DAILY PRN 03/03/16 04/19/17 Pamoate] risperiDONE [RisperDAL] 1.5 mg PO QPM 03/03/16 04/19/17 Furosemide [Lasix] 40 mg PO BIDDIURETIC #60 tablet 03/03/17 04/19/17 Spironolactone [Aldactone] 25 mg PO BID #60 tablet 03/03/17 04/19/17 - Allergies Allergies/Adverse Reactions: Allergies Allergy/AdvReac Type Severity Reaction Status Date / Time diphenhydramine HCl * Allergy Mild Rash Verified 05/05/17 17:16 [From Benadryl] morphine Allergy Mild Nausea Verified 05/05/17 17:16 iron dextran complex Allergy Unknown Verified 05/05/17 17:16 - Social History Does the pt smoke?: No Smoking Status: Never smoker Does the pt drink ETOH?: No Does the pt have substance abuse?: No - Immunizations Immunizations are current?: Yes - POLST Patient has POLST: No POLST Status: Full Code PD ED PE NORMAL - Vitals Vital signs reviewed: Yes - General General: Alert and oriented X 3, No acute distress - HEENT HEENT: PERRL, Moist mucous membranes - Neck Neck: Supple, no meningeal sign - Cardiac Cardiac: RRR, Strong equal pulses - Respiratory Respiratory: No respiratory distress, Clear bilaterally - Abdomen Abdomen: Soft, Non tender, Non distended - Derm Derm: Warm and dry - Extremities Extremities: Other (diminished pulses B LE.) - Neuro Neuro: Alert and oriented X 3 Results - Vitals Vitals: Vital Signs - 24 hr 05/05/17 05/05/17 05/05/17 17:09 19:35 19:36 Temperature 37.2 C Heart Rate 112 H 109 H 104 H Respiratory 20 16 13 Rate Blood Pressure 133/83 H 106/80 106/80 O2 Saturation 97 93 95 05/05/17 20:30 Temperature Heart Rate 99 Respiratory 20 Rate Blood Pressure 102/69 O2 Saturation 99 Oxygen O2 Source [Without Activity] 3L O2 via NC O2 Source Non-rebreather mask Oxygen Flow Rate 8 - Labs Labs: Laboratory Tests 05/05/17 05/05/17 18:59 18:59 WBC 17.9 H RBC 4.41 Hgb 10.7 L Hct 34.7 L MCV 78.7 L MCH 24.2 L MCHC 30.8 L RDW 27.9 H Plt Count 1431 H* MPV 8.3 Neut # 14.0 H Lymph # 0.4 L [place] # 3.4 H Eos # 0.1 Baso # 0.0 Absolute Nucleated RBC 0.02 Band Neuts % (Manual) FILM PRINTER Abnorm Lymph % (Manual) FILM PRINTER Nucleated RBC % 0.1 Neutrophils # (Manual) Not Reportable Lymphocytes # (Manual) FILM PRINTER Monocytes # (Manual) FILM PRINTER Eosinophils # (Manual) FILM PRINTER Basophils # (Manual) FILM PRINTER Differential Comment MANUAL=AUTO DIFF Platelet Estimate INCREASED (>450,000) Platelet Morphology 3+ GIANT PLATELETS RBC Morph Micro Appear 2+ HYPOCHROMASIA Sodium 137 Potassium 4.3 Chloride 99 L Carbon Dioxide 29 Anion Gap 9.0 BUN 21 H Creatinine 1.0 Estimated GFR (MDRD) 55 L Glucose 134 H Calcium 9.4 Total Bilirubin 0.4 AST 28 ALT 16 Alkaline Phosphatase 84 Total Protein 7.7 Albumin 3.7 Globulin 4.0 Albumin/Globulin Ratio 0.9 L Lipase 17 L PD MEDICAL DECISION MAKING - ED course Complexity details: reviewed old records, reviewed results, re-evaluated patient , considered differential, d/w patient, d/w information technology consultant ED course: Discussed with Sumeet Ng MD who states that there is no more treatment for her. She was offered palliative care/hospice and declined this. States that there is no reason to transfer her at this time. States that she should be on oxygen at home and xarelto 20mg po daily. I also requested that records be sent to the hospital for our hospitalist to help take care of her I spoke with the patient and she does not have home oxygen at this time, she would like to consider palliative care and hospice. She would like to talk to the social science professor in the morning. We will admit the patient for further care. It was discussed with her her poor prognosis. Discussed the case with Dr. Medina , hospitalist accepts. This document was made in part using voice recognition software. While efforts are made to proofread this document, sound alike and grammatical errors may occur. Departure - Departure Disposition: 65 [facility] DC/Xfer Clinical Impression: Hypoxia DVT (deep venous thrombosis) Qualifiers: DVT location: lower extremity Affected thrombotic vein of extremity: unspecified vein of extremity Chronicity: unspecified Laterality: left Qualified Code(s): I82.402 - Acute embolism and thrombosis of unspecified deep veins of left lower extremity Pulmonary emboli Qualifiers: Pulmonary embolism type: other Chronicity: chronic Acute cor pulmonale presence : without acute cor pulmonale Qualified Code(s): I27.82 - Chronic pulmonary embolism Condition: Stable Discharge Date/Time: 05/05/17 21:43
[2017-05-05 19:08] LABS: BASOPHILS % (AUTO) 0.1 %; EOSINOPHILS # (AUTO) 0.1 10^3/uL (0.0-0.7); EOSINOPHILS % (AUTO) 0.7 %; HGB - HEMOGLOBIN 10.7 g/dL (12.0-16.0); LYMPHOCYTES # (AUTO) 0.4 10^3/uL (1.5-3.5); LYMPHOCYTES % (AUTO) 2.1 %; MEAN CORPUSCULAR HEMOGLOBIN 24.2 pg (27.0-31.0); MEAN CORPUSCULAR HGB CONC 30.8 g/dL (32.0-36.0); MEAN CORPUSCULAR VOLUME 78.7 fL (81.0-99.0); MEAN PLATELET VOLUME 8.3 fL (7.9-10.8); MONOCYTES # (AUTO) 3.4 10^3/uL (0.0-1.0); MONOCYTES % (AUTO) 19.2 %; NEUTROPHILS % (AUTO) 77.9 %; RED BLOOD COUNT 4.41 10^6/uL (4.20-5.40); RED CELL DISTRIBUTION WIDTH 27.9 % (12.0-15.0); WHITE BLOOD COUNT 17.9 x10^3/uL (4.8-10.8)
[2017-05-05 19:12] LABS: PLT - PLATELET COUNT 1431 10^3/uL (130-450)
[2017-05-05 19:25] LABS: ALBUMIN 3.7 g/dL (3.2-5.5); ALBUMIN/GLOBULIN RATIO 0.9 (1.0-2.2); BILIRUBIN,TOTAL 0.4 mg/dL (0.2-1.0); CALCIUM 9.4 mg/dL (8.5-10.3); TOTAL PROTEIN 7.7 g/dL (6.7-8.2)
[2017-05-05 19:44] LABS: PLATELET ESTIMATE, MANUAL INCREASED (>450,000) (NORMAL); PLATELET MORPHOLOGY 3+ GIANT PLATELETS (NORMAL)
[2017-05-05] MEDS ORDERED: clonazePAM 0.5 MG TABLET PO STA (19:52)
[2017-05-05 20:15] LABS: DIFFERENTIAL COMMENT MANUAL=AUTO DIFF
[2017-05-05] MEDS ORDERED: HYDROXYZINE PAMOATE 50 MG PO PRN (20:41)
[2017-05-05] MEDS ORDERED: PROCHLORPERAZINE 10 MG/2 ML VIAL IVP PRN (20:48)
[2017-05-05] MEDS ORDERED: ONDANSETRON 4 MG/2 ML VIAL IVP PRN (20:48)
[2017-05-05] MEDS ORDERED: ZOLPIDEM 5 MG TABLET PO PRN (20:48)
[2017-05-05] MEDS ORDERED: risperiDONE 0.25 MG TABLET PO SCH (21:00)
--- NOTE | 2017-05-05 21:34 | XRAY Report ---
EXAM: CHEST RADIOGRAPHY EXAM DATE: 05/05/2017 09:12 PM. CLINICAL HISTORY: Hypoxia. COMPARISON: 04/19/2017, 02/26/2017. TECHNIQUE: 1 view. FINDINGS: Lungs/Pleura: Hazy left greater than right perihilar opacities with interstitial prominence. No focal consolidation. No pleural effusion. No pneumothorax. Mediastinum: Heart is prominent. Median sternotomy wires. Other: None. IMPRESSION: Probable mild pulmonary edema. Atypical infection could have this appearance. [facility] Referring Provider Line: [phone] SITE ID: [id number]
[2017-05-05] MEDS: MIRTAZAPINE 15 MG TABLET PO SCH (21:57)
[2017-05-05] MEDS: traMADol 50 MG TABLET PO PRN (21:57)
[2017-05-05] MEDS: methylPREDNISolone SUCCINATE 40 MG/ML VIAL IVP SCH (21:57)
[2017-05-05] MEDS: SODIUM CHLORIDE FLUSH 0.9% 10 ML SYRINGE IVP SCH (21:57)
--- NOTE | 2017-05-05 22:06 | HISTORY & PHYSICAL EXAMINATION ---
Chief Complaint - Chief Complaint Chief Complaint: Collapsed while walking up stairs History of Present Illness - Admitted From Admitted From:: Emergency Department - History Obtained From Records Reviewed: Yes History obtained from: Patient and medical records Exam Limitations: None - History of Present Illness HPI Comment/Other: Patient is a 66-year-old female with a past medical history significant for essential thrombocytosis with Dae 2 mutation, recurrent pulmonary emboli and DVTs with history of massive saddle pulmonary embolism in September 2014 status post cervical thrombectomy, on chronic anticoagulation with Xarelto, history of strokes with no residual deficit, CKD stage III, bipolar disorder, COPD, hypertension, anxiety and depression who presented to the emergency department with chief complaint of collapsing while going up stairs. The patient was recently seen in our emergency department on 04/19/2017 at which time she was complaining of left lower extremity swelling at that time she underwent a left lower extremity Doppler ultrasound which revealed extensive left leg DVT from the external iliac vein to the calf veins which had increased since 04/09/2016 and at that time she was transferred to [facility] for vascular surgery assessment. The patient has been hospitalized at [facility] for the last 2 weeks. While there the patient underwent a left lower extremity thrombectomy and had been recovering. The patient was told by specialist at [facility] that her diagnosis was terminal and in the setting of her not being compliant with her anticoagulation that her best options were hospice or palliative care. Apparently the patient was not happy with either of these options and she signed out of [facility] AGAINST MEDICAL ADVICE earlier this morning and was taken home by her caregiver. The patient states that she was on oxygen while she was hospitalized but she states that she was not requiring oxygen at home. The patient's caregiver took the patient home with oxygen however [facility] did not prescribe a portable oxygen tank so it is unknown as to how the patient went home with oxygen. According to the patient when she arrived at home today she felt okay but she states at home she has 19 steps that she has to go up. She made it about half way up when she states that she became very short of air and felt lightheaded. The next thing she states that she remembers is EMS bringing her into the hospital. According to EMS and the patient's caregiver the patient collapsed and lost consciousness while she was going up the steps. On arrival EMS found that the patient's oxygen saturation was in the 60s. The patient was placed on oxygen and her color quickly improved and she slowly regained consciousness. However she was still quite hypoxic on arrival to the emergency department. The patient does complain of feeling short of air but otherwise denies any chest pain, orthopnea, PND, increased lower extremity swelling from her baseline. She also denies any headaches, blurred vision, runny nose, sore throat, nasal congestion, cough, fevers, chills, abdominal pain, nausea, vomiting, diarrhea, constipation, urinary urgency, urinary frequency, dysuria, joint swelling, muscle aches, joint pain, back pain, neck stiffness, recent unintentional weight loss, night sweats, changes in her appetite or any focal neurologic deficits. The emergency room physician Dr. Stoddard spoke with Sumeet Martin MD from [facility] who stated that there is no more treatment for the patient. She was offered palliative care/hospice and declined this option. He told the emergency room physician that there was no reason to transfer her at this time. He stated that she should be on oxygen at home and Xarelto 20 mg daily. On presentation to the emergency department the patient was afebrile but she was tachycardic and requiring a nonrebreather to maintain her oxygen saturation in the mid 90s. The patient underwent routine lab work which did reveal a leukocytosis of 17.9 which is elevated from her most recent baseline of around 12.9. The patient also had a thrombocytosis of 1431 which is also elevated from her baseline. The patient underwent a chest x-ray which revealed probable mild pulmonary edema and atypical infection. Given the patient's severe hypoxia she was admitted to the intensive care unit with acute on chronic respiratory failure with hypoxia likely secondary to pneumonia, pulmonary edema and pulmonary hypertension. History - Past Medical History Cardiovascular: reports: Hypertension, Deep vein thrombosis, Pulmonary embolism Respiratory: reports: COPD, Pneumonia, Shortness of breath, Other Neuro: reports: Headache/migraine, Peripheral neuropathy, Other Endocrine/Autoimmune: reports: None GI: reports: GERD RETAIL PARTS PRO: reports: None : reports: Renal insuffiency HEENT: reports: None Psych: reports: Depression, Anxiety Musculoskeletal: reports: Scoliosis Derm: reports: None MRSA Hx?: No Other Past Medical History: Essential Thrombocytosis - Past Surgical History Ortho: reports: Spine surgery /RETAIL PARTS PRO: reports: section, Hysterectomy - Family & Social History Family History: Mother: (Mother of complications of stroke), CVA/ TIA, Other family: CAD (Maternal Grandmother who also had CHF) Living arrangement: At home Living Situation: With caregiver(s) Social History Notes: The patient was raised in the [place] area. She currently lives on [facility] she is living alone. She is from her ex-. She has 3 children 2 sons and 1 daughter. All her kids live outside of the state. She has 1 son in [place] and one son in [place]. Her daughter lives in [place]. The patient worked in the [employer] and [email or web address] for some time. She does report exposure to fumes while she worked there. The patient lives in [place], [place]. She does have a caregiver who comes to her house several times a week and a second caregiver who also comes to her home. The patient used to smoke from the age of 13 up until approximately the age of 53 about 35 years she smoked about a pack a day. She denies any alcohol or illicit drug use. - POLST Patient has POLST: No POLST Status: Full Code Meds/Allgy - Home Medications Home Medications: Ambulatory Orders Medication Instructions Recorded Confirmed clonazePAM [Klonopin] 0.5 - 1 mg PO TID PRN 10/01/12 04/19/17 Mirtazapine [Remeron] 30 mg PO QPM 05/19/14 04/19/17 traMADol [Ultram] 50 mg PO Q4H PRN MDD 5 TABLETS 08/17/15 04/19/17 Omeprazole 20 mg PO BID 12/30/15 04/19/17 Metoprolol Succinate 25 mg PO DAILY 01/13/16 04/19/17 Albuterol Sulf [Ventolin Hfa 2 puffs INH Q4H PRN 03/03/16 04/19/17 Inhaler] Budesonide/Formoterol Fumarate 2 puffs INH BID 03/03/16 04/19/17 [Symbicort 160-4.5 Mcg Inhaler] DULoxetine [Cymbalta] 30 mg PO DAILY 03/03/16 04/19/17 Hydroxyurea 500 mg PO DAILY 03/03/16 04/19/17 Rivaroxaban [Xarelto] 20 mg PO DAILY 03/03/16 04/19/17 hydrOXYzine pamoate [Hydroxyzine 50 mg PO DAILY PRN 03/03/16 04/19/17 Pamoate] risperiDONE [RisperDAL] 1.5 mg PO QPM 03/03/16 04/19/17 Furosemide [Lasix] 40 mg PO BIDDIURETIC #60 tablet 03/03/17 04/19/17 Spironolactone [Aldactone] 25 mg PO BID #60 tablet 03/03/17 04/19/17 - Allergies Allergies/Adverse Reactions: Allergies Allergy/AdvReac Type Severity Reaction Status Date / Time diphenhydramine HCl * Allergy Mild Rash Verified 05/05/17 17:16 [From Benadryl] morphine Allergy Mild Nausea Verified 05/05/17 17:16 iron dextran complex Allergy Unknown Verified 05/05/17 17:16 Review of Systems - Other Findings Other Findings: A comprehensive review of systems was performed the pertinent positives and negatives are stated above in the HPI and the remainder of the review of systems is negative. Exam - Vital Signs Reviewed Vital Signs: Yes Vital Signs: Vital Signs x48h Temp Pulse Resp BP Pulse Ox 05/05/17 20:30 99 20 102/69 99 05/05/17 19:36 104 H 13 106/80 95 05/05/17 19:35 109 H 16 106/80 93 05/05/17 17:09 37.2 C 112 H 20 133/83 H 97 - Physical Exam General Appearance: positive: Alert, Mild distress (respiratory distress, patient is tachypneic) Eyes Bilateral: positive: Normal inspection, PERRL, EOMI, No lid inflammation, Conjunctivae nml, No scleral icterus ENT: positive: ENT inspection nml, Pharynx nml, No signs of dehydration. negative: Purulent nasal drainage, Pharyngeal erythema, Oral lesions Neck: positive: Nml inspection, Thyroid nml, No JVD, Trachea midline. negative : Thyromegaly, Lymphadenopathy (R), Lymphadenopathy (L), Stiff neck, Carotid bruit Respiratory: positive: Wheezes (Scattered bilateral), Rales (Bibasilar), Rhonchi (bibasilar) Cardiovascular: positive: Tachycardia, Systolic murmur Peripheral Pulses: positive: 2+ Abdomen: positive: Non-tender, No organomegaly, Nml bowel sounds, No distention. negative: Guarding, Rebound, Hepatomegaly Back: positive: Nml inspection. negative: CVA tenderness (R), CVA tenderness (L ) Skin: positive: Color nml, No rash, Dry. negative: Cyanosis, Diaphoresis, Skin rash Extremities: positive: Non-tender, Full ROM, Pedal edema (Bilateral LEs worse on the left) Neurologic/Psychiatric: positive: Oriented x3, CN's nml (2-12), Motor nml, Sensation nml Conclusion/Plan - Problem List (1) Acute on chronic respiratory failure with hypoxia Conclusion/Plan: The patient has chronic respiratory failure secondary to chronic pulmonary emboli causing severe pulmonary hypertension with history of COPD. Patient has been set up with oxygen at home in the past however states that she had not been taking oxygen recently at home. The patient was on oxygen while she was hospitalized at [facility] ([place], [place]) it is unclear as to how much oxygen she was on when she left AMA earlier today. The patient collapsed at home when going up the stairs and was found to be hypoxic with oxygen saturation in the 60s. The patient did have improvement and regained consciousness after being placed on supplemental oxygen requiring 15 L nonrebreather. The patient did have wheezing, crackles and rhonchi on examination. The patient 's chest x-ray showed some pulmonary edema and atypical-looking pneumonia. Given the patient's history of essential thrombocytosis it would not be surprising if she does have a another pulmonary embolism however we did not get a CT pulmonary angiogram as this would not change our management of treating the patient with Xarelto. Plan: Patient will be continued on supplemental oxygen at this point she is requiring nonrebreather at 15 L saturating in the mid 90s therefore she will be placed in the intensive care unit as she would like to be full code but at the same time expresses to me that she wants to go home with palliative care. The patient will be continued on Xarelto for history of pulmonary emboli and DVT The patient will be given IV azithromycin for what appears to be an atypical pneumonia on chest x-ray Patient will be given IV Lasix for pulmonary edema Patient will be treated with duo nebs and steroids for COPD exacerbation It appears that the patient's respiratory failure is multifactorial and a huge component of her respiratory failure was likely due to the fact that she was not on oxygen and exerting herself at home. The patient does express that she wants palliative care at home therefore we will consult palliative care and try to set up oxygen for the patient at home so that she can go home on palliative care when she is more stable. (2) Atypical pneumonia Conclusion/Plan: Patient presented with acute on chronic respiratory failure requiring a nonrebreather to maintain good oxygen saturation. Patient does have some rhonchi on examination and does have a leukocytosis. Although patient is not having cough or fever given the atypical pneumonia pattern seen on chest x-ray the patient will be treated with IV azithromycin for atypical pneumonia. Patient will also get supplemental oxygen and we will continue to monitor. (3) Pulmonary edema Conclusion/Plan: Patient presented with acute on chronic respiratory failure with hypoxia. The respiratory failure is likely multifactorial including the fact that she was off of oxygen and exerting herself at home. The patient does have history of severe pulmonary hypertension, tricuspid regurgitation and severe right-sided heart failure from history of chronic PEs and COPD. The patient does have some crackles on examination and her chest x-ray does reveal some pulmonary edema. Given her presentation with acute respiratory failure it is felt that patient needs IV Lasix at least for 1 dose Continue supplemental oxygen and wean O2 as tolerated. Qualifiers: Chronicity: acute Qualified Code(s): J81.0 - Acute pulmonary edema (4) COPD (chronic obstructive pulmonary disease) Conclusion/Plan: Patient has history of COPD and presents to the emergency department with acute on chronic respiratory failure with hypoxia. The patient does have some wheezing on examination although her respiratory failure is multifactorial it is felt that the COPD is likely a contributing component. The patient will be treated for COPD exacerbation with duo nebs and IV steroids we will also continue her on supplemental oxygen and wean as tolerated. Qualifiers: COPD type: COPD with acute exacerbation Qualified Code(s): J44.1 - Chronic obstructive pulmonary disease with (acute) exacerbation (5) Bipolar disorder Conclusion/Plan: The patient does have history of bipolar as well as anxiety and depression. The patient is on multiple psychiatric medications including Risperdal, Cymbalta , Remeron and Klonopin. It is unclear at this point as to how much the patient's psychiatric history is contributing to her noncompliance with treatment and how well she truly understands her diagnosis and prognosis. She does not appear to be making the best decisions for herself however she also does not appear to be acutely psychotic. At this point we will continue the patient's home psychiatric medications. We will consult social work 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 The patient is supposed to be on lifelong Xarelto to prevent DVTs and PEs it appears the patient is not fully compliant with this treatment. She has had recurrent DVTs and PEs including most recently a DVT in her left leg requiring thrombectomy at [facility]. The patient left that hospitalization AMA today and now presents back to our hospital with acute respiratory failure. It is possible that the patient may have had another pulmonary embolism however given that her management would not change we will continue her on Xarelto and not get another CT pulmonary angiogram. It appears that the specialist at [facility] have told the patient that there is nothing further they can do about her illness and they recommended palliative care/hospice for the patient. The patient however refused this and left AMA. Today in the emergency department the patient is open to going home with palliative care however at this point the patient's oxygen requirement is too great for her to return home. We will treat her acute on chronic respiratory failure with hypoxia and once she is stabilized we will arrange for her to go home with palliative care. Although the patient does want to go home with palliative care she still wants to be a full code at this time we will consult palliative care for further discussion about this issue. I am worried that her mental illness is contributing to her making bad choices as far as her medical care. However at this point she does not appear unstable from a psychiatric standpoint. We will consult social work for further input. - Lab Results Lab results reviewed: Yes Fish Bones: 05/05/17 18:59 05/05/17 18:59 Other Lab Results: Laboratory Results WBC 17.9 x10^3/uL (4.8-10.8) H 05/05/17 18:59 RBC 4.41 10^6/uL (4.20-5.40) 05/05/17 18:59 Hgb 10.7 g/dL (12.0-16.0) L 05/05/17 18:59 Hct 34.7 % (37.0-47.0) L 05/05/17 18:59 MCV 78.7 fL (81.0-99.0) L 05/05/17 18:59 MCH 24.2 pg (27.0-31.0) L 05/05/17 18:59 MCHC 30.8 g/dL (32.0-36.0) L 05/05/17 18:59 RDW 27.9 % (12.0-15.0) H 05/05/17 18:59 Plt Count 1431 10^3/uL (130-450) H* 05/05/17 18:59 MPV 8.3 fL (7.9-10.8) 05/05/17 18:59 Neut # 14.0 10^3/uL (1.5-6.6) H 05/05/17 18:59 Lymph # 0.4 10^3/uL (1.5-3.5) L 05/05/17 18:59 [place] # 3.4 10^3/uL (0.0-1.0) H 05/05/17 18:59 Eos # 0.1 10^3/uL (0.0-0.7) 05/05/17 18:59 Baso # 0.0 10^3/uL (0.0-0.1) 05/05/17 18:59 Absolute Nucleated RBC 0.02 x10^3/uL 05/05/17 18:59 Band Neuts % (Manual) XM1 TANK DRIVER 05/05/17 18:59 Abnorm Lymph % (Manual) XM1 TANK DRIVER 05/05/17 18:59 Nucleated RBC % 0.1 /100WBC 05/05/17 18:59 Neutrophils # (Manual) Not Reportable 05/05/17 18:59 Lymphocytes # (Manual) XM1 TANK DRIVER 05/05/17 18:59 Monocytes # (Manual) XM1 TANK DRIVER 05/05/17 18:59 Eosinophils # (Manual) XM1 TANK DRIVER 05/05/17 18:59 Basophils # (Manual) XM1 TANK DRIVER 05/05/17 18:59 Differential Comment MANUAL=AUTO DIFF 05/05/17 18:59 Platelet Estimate INCREASED (>450,000) (NORMAL) 05/05/17 18:59 Platelet Morphology 3+ GIANT PLATELETS (NORMAL) 05/05/17 18:59 RBC Morph Micro Appear 2+ ANISOCYTOSIS (NORMAL) 2+ POIKILOCYTOSIS (NORMAL) 1 + POLYCHROMASIA (NORMAL) 2+ HYPOCHROMASIA (NORMAL) 05/05/17 18:59 RBC Morph Micro Appear 2+ ANISOCYTOSIS (NORMAL) 2+ POIKILOCYTOSIS (NORMAL) 1 + POLYCHROMASIA (NORMAL) 2+ HYPOCHROMASIA (NORMAL) 05/05/17 18:59 RBC Morph Micro Appear 2+ ANISOCYTOSIS (NORMAL) 2+ POIKILOCYTOSIS (NORMAL) 1 + POLYCHROMASIA (NORMAL) 2+ HYPOCHROMASIA (NORMAL) 05/05/17 18:59 RBC Morph Micro Appear 2+ ANISOCYTOSIS (NORMAL) 2+ POIKILOCYTOSIS (NORMAL) 1 + POLYCHROMASIA (NORMAL) 2+ HYPOCHROMASIA (NORMAL) 05/05/17 18:59 Sodium 137 mmol/L (135-145) 05/05/17 18:59 Potassium 4.3 mmol/L (3.5-5.0) 05/05/17 18:59 Chloride 99 mmol/L (101-111) L 05/05/17 18:59 Carbon Dioxide 29 mmol/L (21-32) 05/05/17 18:59 Anion Gap 9.0 (6-13) 05/05/17 18:59 BUN 21 mg/dL (6-20) H 05/05/17 18:59 Creatinine 1.0 mg/dL (0.4-1.0) 05/05/17 18:59 Estimated GFR (MDRD) 55 (>89) L 05/05/17 18:59 Glucose 134 mg/dL (70-100) H 05/05/17 18:59 Calcium 9.4 mg/dL (8.5-10.3) 05/05/17 18:59 Total Bilirubin 0.4 mg/dL (0.2-1.0) 05/05/17 18:59 AST 28 IU/L (10-42) 05/05/17 18:59 ALT 16 IU/L (10-60) 05/05/17 18:59 Alkaline Phosphatase 84 IU/L (42-121) 05/05/17 18:59 Total Protein 7.7 g/dL (6.7-8.2) 05/05/17 18:59 Albumin 3.7 g/dL (3.2-5.5) 05/05/17 18:59 Globulin 4.0 g/dL (2.1-4.2) 05/05/17 18:59 Albumin/Globulin Ratio 0.9 (1.0-2.2) L 05/05/17 18:59 Lipase 17 U/L (22-51) L 05/05/17 18:59 - Diagnostic Imaging Results Diagnostic Imaging Results: positive: Final report reviewed Diagnostic Imaging Results Comments: EXAM: [id number] ([id number]) EXAM: CHEST RADIOGRAPHY EXAM DATE: 05/05/2017 09:12 PM. CLINICAL HISTORY: Hypoxia. COMPARISON: 04/19/2017, 02/26/2017. TECHNIQUE: 1 view. FINDINGS: Lungs/Pleura: Hazy left greater than right perihilar opacities with interstitial prominence. No focal consolidation. No pleural effusion. No pneumothorax. Mediastinum: Heart is prominent. Median sternotomy wires. Other: None. IMPRESSION: Probable mild pulmonary edema. Atypical infection could have this appearance. Core Measures - Anticipated LOS I expect patient to be DC'd or transferred within 96 hours.: Yes - DVT/VTE - Prophylaxis VTE/DVT Device ordered at admit?: Yes
[2017-05-05] MEDS ORDERED: AZITHROMYCIN 250 MG TABLET PO STA (22:15)
[2017-05-05] MEDS ORDERED: FUROSEMIDE 20 MG/2 ML VIAL IVP STA (22:16)
[2017-05-05] MEDS ORDERED: AZITHROMYCIN INJ 500 MG in SODIUM CHLORIDE 0.9% 250 ML IV STA (22:28)
[2017-05-05] MEDS ORDERED: FUROSEMIDE 20 MG/2 ML VIAL IVP SCH (23:00)
[2017-05-05] MEDS ORDERED: AZITHROMYCIN INJ 500 MG in SODIUM CHLORIDE 0.9% 250 ML IV SCH (23:00)
[2017-05-05] MEDS: IPRATROPIUM/ALBUTEROL 3 ML NEB INH SCH (23:41)
[2017-05-06 05:43] LABS: BASOPHILS % (AUTO) 1.4 %; EOSINOPHILS % (AUTO) 0.1 %; HGB - HEMOGLOBIN 10.5 g/dL (12.0-16.0); LYMPHOCYTES % (AUTO) 2.1 %; MEAN CORPUSCULAR HEMOGLOBIN 23.1 pg (27.0-31.0); MEAN CORPUSCULAR HGB CONC 29.3 g/dL (32.0-36.0); MEAN CORPUSCULAR VOLUME 78.9 fL (81.0-99.0); MONOCYTES % (AUTO) 3.1 %; NEUTROPHILS % (AUTO) 93.3 %; RED BLOOD COUNT 4.55 10^6/uL (4.20-5.40); RED CELL DISTRIBUTION WIDTH 28.5 % (12.0-15.0); WHITE BLOOD COUNT 14.6 x10^3/uL (4.8-10.8)
[2017-05-06 05:50] LABS: ABNORMAL LYMPHS % (MANUAL) 0 %; BAND NEUTROPHILS % (MANUAL) 0 %; PLT - PLATELET COUNT 1556 10^3/uL (130-450)
[2017-05-06 06:06] LABS: CALCIUM 9.3 mg/dL (8.5-10.3); CREATININE 0.9 mg/dL (0.4-1.0)
[2017-05-06] MEDS: methylPREDNISolone SUCCINATE 40 MG/ML VIAL IVP SCH ×3 (06:10→21:47)
[2017-05-06] MEDS: PANTOPRAZOLE 40 MG TABLET PO SCH (06:14)
[2017-05-06 06:56] LABS: LYMPHOCYTES % (MANUAL) 6 %; METAMYELOCYTES % (MANUAL) 1 %; MONOCYTES # (MANUAL) 0.6 10^3/uL (0.0-1.0); MYELOCYTES % (MANUAL) 1 %; NEUTROPHILS # (MANUAL) 12.7 10^3/uL (1.5-6.6); NEUTROPHILS % (MANUAL) 87 %
[2017-05-06 06:59] LABS: DIFFERENTIAL COMMENT MANUAL DIFFERENTIAL; PLATELET ESTIMATE, MANUAL INCREASED (>450,000) (NORMAL)
[2017-05-06] MEDS: BUDESONIDE 0.5 MG/2 ML NEB INH SCH ×2 (07:25→19:30)
[2017-05-06] MEDS: FORMOTEROL FUMARATE NEB 20 MCG/2 ML INH SCH ×2 (07:25→19:31)
[2017-05-06] MEDS: IPRATROPIUM/ALBUTEROL 3 ML NEB INH SCH ×4 (07:25→19:30)
[2017-05-06] MEDS: traMADol 50 MG TABLET PO PRN ×3 (08:35→18:52)
[2017-05-06] MEDS: RIVAROXABAN 10 MG TABLET PO SCH (08:36)
[2017-05-06] MEDS: SACCHAROMYCES BOULARDII 250 MG CAPSULE PO SCH ×2 (08:36→17:27)
[2017-05-06] MEDS: HYDROXYUREA 500 MG CAPSULE PO SCH (08:37)
[2017-05-06] MEDS: ACETAMINOPHEN 325 MG TABLET PO PRN ×2 (08:38→15:58)
[2017-05-06] MEDS: METOPROLOL SUCCINATE 25 MG TABLET PO SCH (08:39)
[2017-05-06] MEDS: DULoxetine 30 MG CAPSULE PO SCH (08:39)
[2017-05-06] MEDS: clonazePAM 0.5 MG TABLET PO PRN ×2 (08:54→22:25)
[2017-05-06] MEDS: POLYETHYLENE GLYCOL 3350 17 GM PACKET PO SCH (11:03)
[2017-05-06] MEDS: SODIUM CHLORIDE FLUSH 0.9% 10 ML SYRINGE IVP SCH ×3 (13:52→21:47)
[2017-05-06] MEDS: HYDROcod/ACETAM 5/325 MG TABLET PO PRN (16:21)
[2017-05-06] MEDS ORDERED: traMADol 50 MG TABLET PO ONE (16:31)
[2017-05-06] MEDS: AZITHROMYCIN INJ 250 MG in SODIUM CHLORIDE 0.9% 250 ML IV SCH (20:37)
[2017-05-06] MEDS: HYDROcod/ACETAM 10 MG/325 MG TABLET PO PRN (20:38)
[2017-05-06] MEDS: MIRTAZAPINE 15 MG TABLET PO SCH (20:38)
[2017-05-06] MEDS: risperiDONE 1 MG TABLET PO SCH (20:39)
[2017-05-06] MEDS ORDERED: AZITHROMYCIN 250 MG TABLET PO SCH (23:00)
[2017-05-07] MEDS: HYDROcod/ACETAM 10 MG/325 MG TABLET PO PRN ×5 (03:30→20:02)
[2017-05-07 06:00] LABS: BASOPHILS % (AUTO) 0.1 %; HGB - HEMOGLOBIN 9.7 g/dL (12.0-16.0); LYMPHOCYTES # (AUTO) 0.4 10^3/uL (1.5-3.5); LYMPHOCYTES % (AUTO) 1.7 %; MEAN CORPUSCULAR HEMOGLOBIN 23.1 pg (27.0-31.0); MEAN CORPUSCULAR HGB CONC 29.2 g/dL (32.0-36.0); MEAN PLATELET VOLUME 8.7 fL (7.9-10.8); MONOCYTES # (AUTO) 1.5 10^3/uL (0.0-1.0); MONOCYTES % (AUTO) 6.3 %; NEUTROPHILS % (AUTO) 91.9 %; RED BLOOD COUNT 4.22 10^6/uL (4.20-5.40); RED CELL DISTRIBUTION WIDTH 28.5 % (12.0-15.0); WHITE BLOOD COUNT 23.9 x10^3/uL (4.8-10.8)
[2017-05-07 06:04] LABS: CALCIUM 9.5 mg/dL (8.5-10.3)
[2017-05-07 06:07] LABS: PLT - PLATELET COUNT 1607 10^3/uL (130-450)
[2017-05-07] MEDS: methylPREDNISolone SUCCINATE 40 MG/ML VIAL IVP SCH ×3 (06:32→21:59)
[2017-05-07] MEDS: PANTOPRAZOLE 40 MG TABLET PO SCH (06:32)
[2017-05-07 06:54] LABS: PLATELET ESTIMATE, MANUAL INCREASED (>450,000) (NORMAL)
[2017-05-07] MEDS: BUDESONIDE 0.5 MG/2 ML NEB INH SCH ×2 (07:35→20:00)
[2017-05-07] MEDS: FORMOTEROL FUMARATE NEB 20 MCG/2 ML INH SCH ×2 (07:35→20:00)
[2017-05-07] MEDS: RIVAROXABAN 10 MG TABLET PO SCH (07:57)
[2017-05-07] MEDS: SACCHAROMYCES BOULARDII 250 MG CAPSULE PO SCH ×2 (07:58→16:01)
[2017-05-07] MEDS: clonazePAM 0.5 MG TABLET PO PRN ×2 (08:07→16:00)
[2017-05-07] MEDS: METOPROLOL SUCCINATE 25 MG TABLET PO SCH (08:42)
[2017-05-07] MEDS: DULoxetine 30 MG CAPSULE PO SCH (08:44)
[2017-05-07] MEDS: HYDROXYUREA 500 MG CAPSULE PO SCH (08:45)
[2017-05-07] MEDS: SODIUM CHLORIDE FLUSH 0.9% 10 ML SYRINGE IVP SCH ×2 (08:47→17:06)
[2017-05-07] MEDS: traMADol 50 MG TABLET PO PRN ×4 (09:43→21:59)
--- NOTE | 2017-05-07 09:45 | CONSULTATION NOTE ---
Palliative Care Consultation - Referral Referring Provider: Dr. Medina Time of Visit: [phone]; 11:45-12 Referral setting: Hospitalized patient Referral Reason: Goals of Care/JAK2 positive meyloproliferative neoplasm with thrombocytosis - Information Sources History/Review of Systems obtained from: Patient Exam limitations: Clinical condition (Patient with known underlying general anxiety disorder, does easily get mixed up and confused. 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 She most recently was hospitalized at [facility] on 04/19 because of left lower extremity swelling and found to have a left leg DVT from the external iliac vein to the calf veins. She underwent a left lower extremity thrombectomy, still has some pain and discomfort in that leg. Patient reports the reason she was heading home from [facility], was because they recommended halfway placement given the fragility of her situation as well as there was "nothing more they could do for her". She had been discharged without portable oxygen, and became breathless and hypoxic with collapse and loss of consciousness when she was walking up her 19 steps to her apartment. She was admitted to [facility] on 310 same day she was discharged was admitted with acute on chronic respiratory failure with hypoxia, concern for atypical pneumonia, as well as exacerbation of her COPD. Her thrombo-cytosis count today was 312 a platelets of 1607. Patient has come to the understanding she does have a choice whether to return to the hospital or not, or to "go to [facility]". She reports it is okay to go to [facility], and wants to be at home. Medical/Surgical History - Past Medical History Cardiovascular: reports: Hypertension, Deep vein thrombosis, Pulmonary embolism Respiratory: reports: COPD, Pneumonia, Shortness of breath Neuro: reports: Headache/migraine, Peripheral neuropathy, Other Endocrine/Autoimmune: reports: None GI: reports: GERD, Chronic constipation SPICE MILLER: reports: None : reports: Renal insuffiency HEENT: reports: None Psych: reports: Depression, Anxiety, Bipolar disorder Musculoskeletal: reports: Scoliosis Derm: reports: None MRSA Hx?: Yes Other Past Medical History: Essential Thrombocytosis - Past Surgical History Ortho: reports: Spine surgery /SPICE MILLER: reports: section, Hysterectomy Social History - Living Situation Living arrangement: At home Living Situation: Alone Support System: Patient has lived at the [facility] for 13 years, she does have a few friends that are quite supportive as well as a COPD ES caregiver Sierra Carter, she is the one who picked her up. She reports she has 2 sons one in [place] and one in [place], also her daughter Alicia Nevarez from [place] is on her way up her phone number is [phone]. She reports her family has asked her to move closer, though she perceives she has better community and her current situation versus in an apartment where she knows no one. She does admit to having difficulty at times tracking things, and there has been concern as far as her medication adherence. Family History - Family History Family History: Mother: , CVA/TIA Medications/Allergies - Medications Active Medication List: Active Medications Acetaminophen (Tylenol) 650 mg PO Q4HR PRN PRN Reason: Pain 1 to 4 Last Admin: 05/06/17 15:58 Dose: 650 mg Acetaminophen/Hydrocodone Bitart (Bryan 5/325) 1 tab PO Q4HR PRN PRN Reason: Pain 5 to 7 Last Admin: 05/06/17 16:21 Dose: 1 tab Acetaminophen/Hydrocodone Bitart (Bryan 10 Mg/325 Mg) 1 tab PO Q4HR PRN PRN Reason: Pain 8 to 10 Last Admin: 05/07/17 08:06 Dose: 1 tab Budesonide (Pulmicort) 0.5 mg INH RTBID [facility] Last Admin: 05/07/17 07:35 Dose: 0.5 mg Clonazepam (Klonopin) 1 mg PO TID PRN PRN Reason: Anxiety Last Admin: 05/07/17 08:07 Dose: 1 mg Duloxetine HCl (Cymbalta) 30 mg PO DAILY [facility] Last Admin: 05/07/17 08:44 Dose: 30 mg Formoterol Fumarate (Perforomist) 20 mcg INH RTBID [facility] Last Admin: 05/07/17 07:35 Dose: 20 mcg Hydroxyurea (Hydrea) 500 mg PO DAILY [facility] Last Admin: 05/07/17 08:45 Dose: 500 mg Azithromycin 250 mg/ Sodium (Chloride) 250 mls @ 250 mls/hr IV Q24H [facility] Last Infusion: 05/06/17 22:01 Dose: Infused Methylprednisolone (Solu-Medrol (40mg Vial)) 40 mg IVP TID [facility] Last Admin: 05/07/17 06:32 Dose: 40 mg Metoprolol Succinate (Toprol Xl) 25 mg PO DAILY [facility] Last Admin: 05/07/17 08:42 Dose: 25 mg Mirtazapine (Remeron) 30 mg PO QPM [facility] Last Admin: 05/06/17 20:38 Dose: 30 mg Ondansetron HCl (Zofran Inj) 4 mg IVP Q6HR PRN PRN Reason: Nausea / Vomiting Pantoprazole Sodium (Protonix) 40 mg PO QDAC [facility] Last Admin: 05/07/17 06:32 Dose: 40 mg Polyethylene Glycol (Miralax) 17 gm PO DAILY [facility] Last Admin: 05/06/17 11:03 Dose: Not Given Prochlorperazine Edisylate (Compazine Inj) 10 mg IVP Q6HR PRN PRN Reason: Nausea / Vomiting Risperidone (Risperdal) 1.5 mg PO QPM [facility] Last Admin: 05/06/17 20:39 Dose: 1.5 mg Rivaroxaban (Xarelto) 20 mg PO DAILYWM [facility] Last Admin: 05/07/17 07:57 Dose: 20 mg Saccharomyces Boulardii (Florastor) 250 mg PO BIDWM [facility] Last Admin: 05/07/17 07:58 Dose: 250 mg Sodium Chloride (Normal Saline Flush 0.9%) 10 ml IVP PRN PRN PRN Reason: NEEDED PER PROVIDER ORDERS Sodium Chloride (Normal Saline Flush 0.9%) 10 ml IVP 0100,0900,1700 [facility] Last Admin: 05/07/17 08:47 Dose: 10 ml Tramadol HCl (Ultram) 50 mg PO Q4H PRN PRN Reason: Analgesia Last Admin: 05/06/17 18:52 Dose: 50 mg Zolpidem Tartrate (Ambien) 5 mg PO QPM PRN PRN Reason: Insomnia clonazePAM [Klonopin] 0.5 - 1 mg PO TID PRN 10/01/12 Mirtazapine [Remeron] 30 mg PO QPM 05/19/14 traMADol [Ultram] 50 mg PO Q4H PRN MDD 5 TABLETS 08/17/15 Omeprazole 20 mg PO BID 12/30/15 Metoprolol Succinate 25 mg PO DAILY 01/13/16 Albuterol Sulf [Ventolin Hfa Inhaler] 2 puffs INH Q4H PRN 03/03/16 Budesonide/Formoterol Fumarate [Symbicort 160-4.5 Mcg Inhaler] 2 puffs INH BID 03/03/16 DULoxetine [Cymbalta] 30 mg PO DAILY 03/03/16 Hydroxyurea 500 mg PO DAILY 03/03/16 Rivaroxaban [Xarelto] 20 mg PO DAILYWM 03/03/16 hydrOXYzine pamoate [Hydroxyzine Pamoate] 50 mg PO QPM PRN 03/03/16 Risperidone [Risperdal] 1.5 mg PO QPM 05/06/17 - Allergies Allergies/Adverse Reactions: Allergies Allergy/AdvReac Type Severity Reaction Status Date / Time diphenhydramine HCl * Allergy Mild Rash Verified 05/05/17 17:16 [From Benadryl] morphine Allergy Mild Nausea Verified 05/05/17 17:16 iron dextran complex Allergy Unknown Verified 05/05/17 17:16 Review of Systems - Constitutional Constitutional: reports: Fatigue - Eyes Eyes: reports: Corrective lenses - Ears, Nose & Throat Ears, Nose & Throat: reports: Hearing loss (mild), Other (poor dentition) - Cardiovascular Cardiovascular: reports: Lightheadedness, Exertional dyspnea, Decr. exercise tolerance - Respiratory Respiratory: reports: SOB at rest (desats easily with any activity; on 5 liters) , SOB with exertion - Gastrointestinal Gastrointestinal: reports: Constipation (intermittent), Reflux/heartburn, Good appetite - Genitourinary Genitourinary: reports: Incontinence (new symptom for patient over last several weeks) - Musculoskeletal Musculoskeletal: reports: Muscle pain, Back pain (chronic), Stiffness, Limited range of motion (left leg weight bearing), Muscle weakness - Integumentary Integumentary: reports: Dryness - Neurological Neurological: reports: General weakness, Headache (intermittent; gets worse with anxiety), Memory problems - Psychiatric Psychiatric: reports: Depression, Anxiety (uses clonazepam; hx of use for "25 years") - Hematologic/Lymphatic Hematologic/Lymphatic: reports: Anemia - All Other Systems All Other Systems: reports: Reviewed and negative Physical Exam - Vital Signs Vital Signs: Vital Signs x48h Temp Pulse Pulse Resp BP Pulse Ox 05/07/17 09:00 93 18 118/75 95 05/07/17 08:00 36.4 C L 21 137/92 H 100 05/07/17 07:35 75 14 05/07/17 07:00 74 13 112/75 93 05/07/17 06:00 73 11 L 107/75 98 05/07/17 05:00 76 16 110/69 97 05/07/17 04:00 36.1 C L 83 28 H 111/76 97 05/07/17 03:00 76 14 117/70 100 05/07/17 02:00 74 23 106/70 100 - Physical Exam General Appearance: positive: Mild distress, Anxious Eyes Bilateral: positive: Normal inspection ENT: positive: Other (poor dentition) Neck: positive: No JVD, Trachea midline Cardiovascular: positive: Tachycardia Respiratory: positive: Diminished in bases Abdomen: positive: Soft, Nml bowel sounds Skin: positive: Pallor, Dryness Extremities: positive: Pedal edema (left trace-1+ greater than right) Neurologic/Psychiatric: positive: Oriented x3, Mood/affect nml (though anxious seems content through conversation) Palliative Care - POLST Patient has POLST: Yes POLST Status: DNR, Comfort Measures (completed at visit;) Pain: Pain unchanged, Location (baseline back pain; left leg pain new; increased discomfort with weight bearing; uses tramdol at home) Tiredness/Fatigue: Severe (7-10) Drowsiness/Sedation: Mild (1-3) Nausea: None Depression: Mild (1-3) Anxiety: Moderate (4-6) Dyspnea: Severe (7-10) Anorexia: None Sleep: Variable sleep pattern Constipation: Yes, Intermittent constipation Feelings of wellbeing/Perceived Quality of Life: Fair, Acceptable, Worsening Performance Status: Reports prior to hospitalization fermín worker was providing mostly transportation, meal prep, and shopping. She does receive Meals on Wheels. She had been independent in her ADLs, is easily distracted, she reports her thinking and strength has diminished quite a bit since hospitalization. I would put her at a PPS at 50% - Palliative Care Discussion: Patient's understanding of her current situation, and she will continue to have clots, that they will come back. She is comfortable with the idea of not returning back to the hospital, and "going home to [facility]" to its okay to be with [place]. We did discuss in the context of this and her limited life expectancy, hospice support. We did discuss though at end of life, where she is not going to be awake and needing more care we would need someone to be able to care for her. She is willing and wanting to talk to her daughter Alicia, she is also willing to be placed. She is hoping to return home for a period of time to be able to get things in order, as well as to have some time to enjoy her family. It is unclear if she truly understands her pending decline, we did discuss to include her daughter Alicia whom she is seeing would be a good DPOAE for medical decision-making in these conversations around end-of-life care. We did complete the [address], has a focus on comfort measures only, she had already made the decision to be a do not attempt resuscitation. In the context of her values and her kristyn the decision she is making is consistent with what she is expressed, the concern is she understand the implications of transitioning. She does admit to high anxiety, but was able to stay in the conversation, and revisit it after I had confirmed they would accept her on the hospice team Results - Lab Results Lab results reviewed: Yes Fish Bones: 05/07/17 04:58 05/07/17 04:58 Lab and Imaging Results: Lab Results x24hrs 05/07/17 05/07/17 Range/Units 04:58 04:58 WBC 23.9 H (4.8-10.8) x10^3/uL RBC 4.22 (4.20-5.40) 10^6/uL Hgb 9.7 L (12.0-16.0) g/dL Hct 33.4 L (37.0-47.0) % MCV 79.0 L (81.0-99.0) fL MCH 23.1 L (27.0-31.0) pg MCHC 29.2 L (32.0-36.0) g/dL RDW 28.5 H (12.0-15.0) % Plt Count 1607 H* (130-450) 10^3/uL MPV 8.7 (7.9-10.8) fL Neut # 22.0 H (1.5-6.6) 10^3/uL Lymph # 0.4 L (1.5-3.5) 10^3/uL Clay # 1.5 H (0.0-1.0) 10^3/uL Eos # 0.0 (0.0-0.7) 10^3/uL Baso # 0.0 (0.0-0.1) 10^3/uL Absolute Nucleated RBC 0.02 x10^3/uL Nucleated RBC % 0.1 /100WBC Manual Slide Review Indicated Platelet Estimate INCREASED (>450,000) (NORMAL) Platelet Morphology 2+ LARGE PLATELETS (NORMAL) RBC Morph Micro Appear 1+ SCHISTOCYTES (NORMAL) Sodium 139 (135-145) mmol/L Potassium 4.8 (3.5-5.0) mmol/L Chloride 101 (101-111) mmol/L Carbon Dioxide 29 (21-32) mmol/L Anion Gap 9.0 (6-13) BUN 31 H (6-20) mg/dL Creatinine 1.0 (0.4-1.0) mg/dL Estimated GFR (MDRD) 55 L (>89) Glucose 145 H (70-100) mg/dL Calcium 9.5 (8.5-10.3) mg/dL Impression and Recommendations - Palliative Care Impression: This is a 66-year-old woman with Domo 2 positive myeloproliferative neoplasm with thrombocytosis and leukocytosis, currently on hydroxyurea. She is having increasing platelet count, increased risk and sequela of her clonidine, with most recently a lower extremity thrombectomy. She also has known pulmonary hypertension, COPD, and chronic pain secondary to her scoliosis. Patient is currently focusing on comfort, and transitioning home with hospice support. Will need to enlist the support and family to confirm a long-term plan to manage her particularly at end of life. Recommendations/Counseling Done: 1.COPD exacerbation, pending atypical pneumonia. Patient currently desats quickly, is quite breathless at rest, goal is to stabilize prior to discharge. 2. Dae 2 positive mild to present today of neoplasm with history of thrombocytosis and leukocytosis and erythrocytosis. Patient's platelet count currently elevated. She has had history of clots with recent hospitalization and surgery, remains at high risk for further sequela. 3. Advanced care planning. Currently patient expressing wish to go home with hospice, will need to enlist family support and agreement. She would need a hospital bed, need to confirm oxygen therapy, over the table table, and commode. Would contact her daughter Alicia [phone] to make arrangements for equipment and confirm what is needed. She reports her other children may be coming to visit as well, her birthday is this . She does have connection with [employer], she does feel quite supported by her kristyn community. Plan to follow-up with daughter on arrival this evening, will currently scheduled for hospice admit Sunday. D[employer]EL SERVICE APPRENTICE and hospitalist notified of plan thus far.Will need DPO a paperwork completed at hospital to be able to contact sulaiman, form is with nurse and ICU Time Spent: 75 minutes with greater than 50% of this done in counseling and coordination of care regarding goals of care and anticipatory guidance
--- NOTE | 2017-05-07 13:57 | PROVIDER PROGRESS NOTE ---
Subjective - Prog Note Date Prog Note Date: 05/06/17 Prog Note Time: 11:00 - Subjective Subjective: this note is created the day after being seen. I failed to write it yesteday. she is anxious. needs a lot of education about her disease and what it means. although she states "no one told me how sick I was" I am dubious since she was at [facility] for 2 weeks and they document a desire to transition to Palliative Care since her disease state is not responding and she is not as compliant as she should be. She then left AMA. currently sob, tired, sleepy. still needs quite a bit of O2 to keep sats up. no fever, no chills. Objective - Vital Signs/Intake & Output Reviewed Vital Signs: Yes Vital Signs: Vital Signs x48h Temp Pulse Pulse Resp BP Pulse Ox 05/07/17 13:00 82 28 H 121/87 H 92 05/07/17 12:00 36.4 C L 94 17 112/76 94 05/07/17 11:00 84 18 101/66 94 05/07/17 10:00 90 17 110/73 91 L 05/07/17 09:00 93 18 118/75 95 05/07/17 08:00 36.4 C L 21 137/92 H 100 05/07/17 07:35 75 14 05/07/17 07:00 74 13 112/75 93 05/07/17 06:00 73 11 L 107/75 98 Intake & Output: Intake & Output 05/04/17 05/05/17 05/06/17 05/07/17 22:59 22:59 23:59 23:59 Intake Total 1110 Output Total 480 Balance 630 - Objective General Appearance: positive: Alert, Mild distress (from sob and exertion of sitting up), Lethargic (plethoric), Other Eyes Bilateral: positive: PERRL ENT: positive: Pharynx nml Neck: positive: Stiff neck. negative: Carotid bruit, Other (can't assess for JVD, neck is too thick) Respiratory: positive: Chest non-tender, Other (can't hear sounds at bases). negative: Wheezes, Rhonchi Cardiovascular: positive: Regular rate & rhythm, Tachycardia (at times), Systolic murmur. negative: Gallop/S4, Friction rub Abdomen: positive: Non-tender, Nml bowel sounds, No distention, Other (large panus and) Skin: positive: No rash, Dry Extremities: positive: Pedal edema (mild) Neurologic/Psychiatric: positive: Oriented x3, CN's nml (2-12). negative: Mood/ affect nml (anxious, forgetful) - Lab Results Fish Bones: 05/07/17 04:58 05/07/17 04:58 Other Labs: Lab Results x24hrs 05/07/17 05/07/17 Range/Units 04:58 04:58 WBC 23.9 H (4.8-10.8) x10^3/uL RBC 4.22 (4.20-5.40) 10^6/uL Hgb 9.7 L (12.0-16.0) g/dL Hct 33.4 L (37.0-47.0) % MCV 79.0 L (81.0-99.0) fL MCH 23.1 L (27.0-31.0) pg MCHC 29.2 L (32.0-36.0) g/dL RDW 28.5 H (12.0-15.0) % Plt Count 1607 H* (130-450) 10^3/uL MPV 8.7 (7.9-10.8) fL Neut # 22.0 H (1.5-6.6) 10^3/uL Lymph # 0.4 L (1.5-3.5) 10^3/uL Stephens # 1.5 H (0.0-1.0) 10^3/uL Eos # 0.0 (0.0-0.7) 10^3/uL Baso # 0.0 (0.0-0.1) 10^3/uL Absolute Nucleated RBC 0.02 x10^3/uL Nucleated RBC % 0.1 /100WBC Manual Slide Review Indicated Platelet Estimate INCREASED (>450,000) (NORMAL) Platelet Morphology 2+ LARGE PLATELETS (NORMAL) RBC Morph Micro Appear 1+ SCHISTOCYTES (NORMAL) Sodium 139 (135-145) mmol/L Potassium 4.8 (3.5-5.0) mmol/L Chloride 101 (101-111) mmol/L Carbon Dioxide 29 (21-32) mmol/L Anion Gap 9.0 (6-13) BUN 31 H (6-20) mg/dL Creatinine 1.0 (0.4-1.0) mg/dL Estimated GFR (MDRD) 55 L (>89) Glucose 145 H (70-100) mg/dL Calcium 9.5 (8.5-10.3) mg/dL Assessment/Plan - Problem List (1) Acute on chronic respiratory failure with hypoxia Impression: The patient has chronic respiratory failure secondary to chronic pulmonary emboli causing severe pulmonary hypertension with history of COPD. Patient has been set up with oxygen at home in the past however states that she had not been taking oxygen recently at home. The patient was on oxygen while she was hospitalized at [facility] it is unclear as to how much oxygen she was on when she left AMA on 05/06. The patient collapsed at home when going up the stairs and was found to be hypoxic with oxygen saturation in the 60s. The patient did have improvement and regained consciousness after being placed on supplemental oxygen requiring 15 L nonrebreather. The patient did have wheezing, crackles and rhonchi on examination. The patient 's chest x-ray showed some pulmonary edema and atypical-looking pneumonia. Given the patient's history of essential thrombocytosis it would not be surprising if she does have a another pulmonary embolism however we did not get a CT pulmonary angiogram as this would not change our management of treating the patient with Xarelto. Plan: She has been continued on supplemental oxygen and intermittently requires nonrebreather at 15 L saturating in the mid 90s . Sometimes she can be transitioned to oxymizer. She is in the intensive care unit as she would like to be full code but at the same time expresses to me that she wants to go home with palliative care. Continued on Xarelto for history of pulmonary emboli and DVT IV azithromycin for what appears to be an atypical pneumonia on chest x-ray continues IV Lasix for pulmonary edema continues Duo nebs and steroids for COPD exacerbation continue It appears that the patient's respiratory failure is multifactorial and a huge component of her respiratory failure was likely due to the fact that she was not on oxygen and exerting herself at home. The patient does express that she wants palliative care at home therefore we will consult palliative care and try to set up oxygen for the patient at home so that she can go home on palliative care when she is more stable. Today is Nagi and Palliative Care will open on Sunday. (2) Atypical pneumonia Conclusion/Plan: Patient presented with acute on chronic respiratory failure requiring a nonrebreather to maintain good oxygen saturation. Patient did have some rhonchi on examination and did have a leukocytosis. Although patient is not having cough or fever given the atypical pneumonia pattern seen on chest x-ray the patient will be treated with IV azithromycin for atypical pneumonia. Patient will also get supplemental oxygen and we will continue to monitor. today 's exam with less rhonchi than described on admission. (3) Pulmonary edema Conclusion/Plan: Patient presented with acute on chronic respiratory failure with hypoxia. The respiratory failure is likely multifactorial including the fact that she was off of oxygen and exerting herself at home. The patient does have history of severe pulmonary hypertension, tricuspid regurgitation and severe right-sided heart failure from history of chronic PEs and COPD. The patient continues to have some crackles on examination and her chest x-ray does reveal some pulmonary edema. Given her presentation with acute respiratory failure she received IV Lasix at least for 1 dose Continue supplemental oxygen and wean O2 as tolerated. Qualifiers: Chronicity: acute Qualified Code(s): J81.0 - Acute pulmonary edema (4) COPD (chronic obstructive pulmonary disease) Conclusion/Plan: Patient has history of COPD and presents to the emergency department with acute on chronic respiratory failure with hypoxia. The patient does have some wheezing on examination although her respiratory failure is multifactorial it is felt that the COPD is likely a contributing component. The patient will be treated for COPD exacerbation with duo nebs and IV steroids we will also continue her on supplemental oxygen and wean as tolerated. Qualifiers: COPD type: COPD with acute exacerbation Qualified Code(s): J44.1 - Chronic obstructive pulmonary disease with (acute) exacerbation (5) Bipolar disorder Conclusion/Plan: The patient does have history of bipolar as well as anxiety and depression. The patient is on multiple psychiatric medications including Risperdal, Cymbalta , Remeron and Klonopin. It is unclear at this point as to how much the patient's psychiatric history is contributing to her noncompliance with treatment and how well she truly understands her diagnosis and prognosis. She does not appear to be making the best decisions for herself however she also does not appear to be acutely psychotic. At this point we will continue the patient's home psychiatric medications. We will consult social work. This will be taken into account when she speaks to Palliative Care. I will try to find her daughter's phone. All of her children live out of state. We want to make sure that she is safe in whatever decision she makes. 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 The patient is supposed to be on lifelong Xarelto to prevent DVTs and PEs it appears the patient is not fully compliant with this treatment. She has had recurrent DVTs and PEs including most recently a DVT in her left leg requiring thrombectomy at [facility]. The patient left that hospitalization AMA on 05/06 and now presents back to our hospital with acute respiratory failure. It is possible that the patient may have had another pulmonary embolism however given that her management would not change we will continue her on Xarelto and not get another CT pulmonary angiogram. It appears that the specialist at [facility] have told the patient that there is nothing further they can do about her illness and they recommended palliative care/hospice for the patient. The patient however refused this and left AMA. In the emergency department here on 05/06 the patient is open to going home with palliative care however at this point the patient's oxygen requirement is too great for her to return home. We will treat her acute on chronic respiratory failure with hypoxia and once she is stabilized we will arrange for her to go home with palliative care. Although the patient does want to go home with palliative care , she had also wanted to be a full code. Today, after speaking to her RN, Nimco Bunn, and understanding what a code meant, she doesn't want to do that. Change to DNR.
[2017-05-07] MEDS: SODIUM CHLORIDE FLUSH 0.9% 10 ML SYRINGE IVP PRN ×2 (14:06→21:59)
[2017-05-07] MEDS: POLYETHYLENE GLYCOL 3350 17 GM PACKET PO SCH (14:11)
--- NOTE | 2017-05-07 16:23 | PROVIDER PROGRESS NOTE ---
Subjective - Prog Note Date Prog Note Date: 05/07/17 Prog Note Time: 16:19 - Subjective Subjective: she still needs NRB at times but then goes back o oxymizer. right now she's on 5 liters NC but gets tachypneic to 25 with anxiety and sob. no fevers. BP stable for 2 days. Her platelets keep climbing daily. she was seen by Palliative Care today. ammenable to going home with that in place. She may be transitioned to Hospice sooner rather than later but we want to have all of her support in place when she leaves or our fear is she will bounce back. Daughter is supposed to show up today. Current Medications - Current Medications Current Medications: Active Medications Acetaminophen (Tylenol) 650 mg PO Q4HR PRN PRN Reason: Pain 1 to 4 Last Admin: 05/06/17 15:58 Dose: 650 mg Acetaminophen/Hydrocodone Bitart ([place] 5/325) 1 tab PO Q4HR PRN PRN Reason: Pain 5 to 7 Last Admin: 05/06/17 16:21 Dose: 1 tab Acetaminophen/Hydrocodone Bitart ([place] 10 Mg/325 Mg) 1 tab PO Q4HR PRN PRN Reason: Pain 8 to 10 Last Admin: 05/07/17 16:01 Dose: 1 tab Budesonide (Pulmicort) 0.5 mg INH RTBID [facility] Last Admin: 05/07/17 07:35 Dose: 0.5 mg Clonazepam (Klonopin) 1 mg PO TID PRN PRN Reason: Anxiety Last Admin: 05/07/17 16:00 Dose: 1 mg Duloxetine HCl (Cymbalta) 30 mg PO DAILY [facility] Last Admin: 05/07/17 08:44 Dose: 30 mg Formoterol Fumarate (Perforomist) 20 mcg INH RTBID [facility] Last Admin: 05/07/17 07:35 Dose: 20 mcg Hydroxyurea (Hydrea) 500 mg PO DAILY [facility] Last Admin: 05/07/17 08:45 Dose: 500 mg Azithromycin 250 mg/ Sodium (Chloride) 250 mls @ 250 mls/hr IV Q24H [facility] Last Infusion: 05/06/17 22:01 Dose: Infused Methylprednisolone (Solu-Medrol (40mg Vial)) 40 mg IVP TID [facility] Last Admin: 05/07/17 14:06 Dose: 40 mg Metoprolol Succinate (Toprol Xl) 25 mg PO DAILY [facility] Last Admin: 05/07/17 08:42 Dose: 25 mg Mirtazapine (Remeron) 30 mg PO QPM [facility] Last Admin: 05/06/17 20:38 Dose: 30 mg Ondansetron HCl (Zofran Inj) 4 mg IVP Q6HR PRN PRN Reason: Nausea / Vomiting Pantoprazole Sodium (Protonix) 40 mg PO QDAC [facility] Last Admin: 05/07/17 06:32 Dose: 40 mg Polyethylene Glycol (Miralax) 17 gm PO DAILY [facility] Last Admin: 05/07/17 14:11 Dose: 17 gm Prochlorperazine Edisylate (Compazine Inj) 10 mg IVP Q6HR PRN PRN Reason: Nausea / Vomiting Risperidone (Risperdal) 1.5 mg PO QPM [facility] Last Admin: 05/06/17 20:39 Dose: 1.5 mg Rivaroxaban (Xarelto) 20 mg PO DAILYWM [facility] Last Admin: 05/07/17 07:57 Dose: 20 mg Saccharomyces Boulardii (Florastor) 250 mg PO BIDWM [facility] Last Admin: 05/07/17 16:01 Dose: 250 mg Sodium Chloride (Normal Saline Flush 0.9%) 10 ml IVP PRN PRN PRN Reason: NEEDED PER PROVIDER ORDERS Last Admin: 05/07/17 14:06 Dose: 10 ml Sodium Chloride (Normal Saline Flush 0.9%) 10 ml IVP 0100,0900,1700 [facility] Last Admin: 05/07/17 08:47 Dose: 10 ml Tramadol HCl (Ultram) 50 mg PO Q4H PRN PRN Reason: Analgesia Last Admin: 05/07/17 14:16 Dose: 50 mg Zolpidem Tartrate (Ambien) 5 mg PO QPM PRN PRN Reason: Insomnia clonazePAM [Klonopin] 0.5 - 1 mg PO TID PRN 10/01/12 Mirtazapine [Remeron] 30 mg PO QPM 05/19/14 traMADol [Ultram] 50 mg PO Q4H PRN MDD 5 TABLETS 08/17/15 Omeprazole 20 mg PO BID 12/30/15 Metoprolol Succinate 25 mg PO DAILY 01/13/16 Albuterol Sulf [Ventolin Hfa Inhaler] 2 puffs INH Q4H PRN 03/03/16 Budesonide/Formoterol Fumarate [Symbicort 160-4.5 Mcg Inhaler] 2 puffs INH BID 03/03/16 DULoxetine [Cymbalta] 30 mg PO DAILY 03/03/16 Hydroxyurea 500 mg PO DAILY 03/03/16 Rivaroxaban [Xarelto] 20 mg PO DAILYWM 03/03/16 hydrOXYzine pamoate [Hydroxyzine Pamoate] 50 mg PO QPM PRN 03/03/16 Risperidone [Risperdal] 1.5 mg PO QPM 05/06/17 Objective - Vital Signs/Intake & Output Reviewed Vital Signs: Yes Vital Signs: Vital Signs x48h Temp Pulse Resp BP Pulse Ox 05/07/17 15:00 83 25 H 92 05/07/17 14:00 86 18 94/69 93 05/07/17 13:49 36.4 C L 05/07/17 13:00 82 20 121/87 H 92 05/07/17 12:00 36.4 C L 94 17 112/76 94 05/07/17 11:00 84 18 101/66 94 05/07/17 10:00 90 17 110/73 91 L 05/07/17 09:00 93 18 118/75 95 Intake & Output: Intake & Output 05/04/17 05/05/17 05/06/17 05/07/17 22:59 22:59 23:59 23:59 Intake Total 1110 Output Total 630 Balance 480 - Objective General Appearance: positive: Mild distress (with intermittent sob, prefers to sit upright), Other (plethoric, obese white female) Eyes Bilateral: positive: PERRL, EOMI ENT: positive: Pharynx nml Neck: negative: Stiff neck, Carotid bruit Respiratory: positive: Chest non-tender, Wheezes, Other (occ tachypnea) Cardiovascular: positive: Regular rate & rhythm. negative: Gallop/S4, Friction rub Abdomen: positive: Non-tender, Nml bowel sounds, No distention, Other (obese) Skin: positive: Warm, Other (rubor of hands and feet) Extremities: positive: Full ROM, Pedal edema Neurologic/Psychiatric: positive: Oriented x3, CN's nml (2-12), Motor nml (but weight and deconditioning have resulted in her being dependent for transfers.). negative: Mood/affect nml (anxiety) - Lab Results Fish Bones: 05/07/17 04:58 05/07/17 04:58 Other Labs: Lab Results x24hrs 05/07/17 05/07/17 Range/Units 04:58 04:58 WBC 23.9 H (4.8-10.8) x10^3/uL RBC 4.22 (4.20-5.40) 10^6/uL Hgb 9.7 L (12.0-16.0) g/dL Hct 33.4 L (37.0-47.0) % MCV 79.0 L (81.0-99.0) fL MCH 23.1 L (27.0-31.0) pg MCHC 29.2 L (32.0-36.0) g/dL RDW 28.5 H (12.0-15.0) % Plt Count 1607 H* (130-450) 10^3/uL MPV 8.7 (7.9-10.8) fL Neut # 22.0 H (1.5-6.6) 10^3/uL Lymph # 0.4 L (1.5-3.5) 10^3/uL [place]ides # 1.5 H (0.0-1.0) 10^3/uL Eos # 0.0 (0.0-0.7) 10^3/uL Baso # 0.0 (0.0-0.1) 10^3/uL Absolute Nucleated RBC 0.02 x10^3/uL Nucleated RBC % 0.1 /100WBC Manual Slide Review Indicated Platelet Estimate INCREASED (>450,000) (NORMAL) Platelet Morphology 2+ LARGE PLATELETS (NORMAL) RBC Morph Micro Appear 1+ SCHISTOCYTES (NORMAL) Sodium 139 (135-145) mmol/L Potassium 4.8 (3.5-5.0) mmol/L Chloride 101 (101-111) mmol/L Carbon Dioxide 29 (21-32) mmol/L Anion Gap 9.0 (6-13) BUN 31 H (6-20) mg/dL Creatinine 1.0 (0.4-1.0) mg/dL Estimated GFR (MDRD) 55 L (>89) Glucose 145 H (70-100) mg/dL Calcium 9.5 (8.5-10.3) mg/dL Assessment/Plan - Problem List (1) Acute on chronic respiratory failure with hypoxia Impression: The patient has chronic respiratory failure secondary to chronic pulmonary emboli causing severe pulmonary hypertension with history of COPD. Patient has been set up with oxygen at home in the past however states that she had not been taking oxygen recently at home. The patient was on oxygen while she was hospitalized at [facility] it is unclear as to how much oxygen she was on when she left AMA on 05/06. The patient collapsed at home when going up the stairs and was found to be hypoxic with oxygen saturation in the 60s. The patient did have improvement and regained consciousness after being placed on supplemental oxygen requiring 15 L nonrebreather. The patient did have wheezing, crackles and rhonchi on examination. The patient 's chest x-ray showed some pulmonary edema and atypical-looking pneumonia. Given the patient's history of essential thrombocytosis it would not be surprising if she does have a another pulmonary embolism however we did not get a CT pulmonary angiogram as this would not change our management of treating the patient with Xarelto. Plan: She has been continued on supplemental oxygen and intermittently requires nonrebreather at 15 L saturating in the mid 90s . Sometimes she can be transitioned to oxymizer. She has improved from yesterday in that she can no be on nasal canula. She is in the intensive care unit and I will transition to Med Surg today. Continued on Xarelto for history of pulmonary emboli and DVT IV azithromycin for what appears to be an atypical pneumonia on chest x-ray continues IV Lasix for pulmonary edema continues Duo nebs and steroids for COPD exacerbation continue It appears that the patient's respiratory failure is multifactorial and a huge component of her respiratory failure was likely due to the fact that she was not on oxygen and exerting herself at home. The patient does express that she wants palliative care at home . She was seen today by Whit Coronado FMP and we will start plans in that direction. (2) Atypical pneumonia Conclusion/Plan: Patient presented with acute on chronic respiratory failure requiring a nonrebreather to maintain good oxygen saturation. Patient did have some rhonchi on examination and did have a leukocytosis. Although patient is not having cough or fever given the atypical pneumonia pattern seen on chest x-ray the patient will be treated with IV azithromycin for atypical pneumonia. Patient will also get supplemental oxygen and we will continue to monitor. Day #3 of abx. (3) Pulmonary edema Conclusion/Plan: Patient presented with acute on chronic respiratory failure with hypoxia. The respiratory failure is likely multifactorial including the fact that she was off of oxygen and exerting herself at home. The patient does have history of severe pulmonary hypertension, tricuspid regurgitation and severe right-sided heart failure from history of chronic PEs and COPD. The patient continues to have some crackles on examination and her chest x-ray does reveal some pulmonary edema. Given her presentation with acute respiratory failure she received IV Lasix at least for 1 dose Continue supplemental oxygen and wean O2 as tolerated. So far successful downward trend in oxygen requirement but it won't be room air. Qualifiers: Chronicity: acute Qualified Code(s): J81.0 - Acute pulmonary edema (4) COPD (chronic obstructive pulmonary disease) Conclusion/Plan: Patient has history of COPD and presents to the emergency department with acute on chronic respiratory failure with hypoxia. The patient does have some wheezing on examination although her respiratory failure is multifactorial it is felt that the COPD is likely a contributing component. The patient will be treated for COPD exacerbation with duo nebs and IV steroids we will also continue her on supplemental oxygen and wean as tolerated. Qualifiers: COPD type: COPD with acute exacerbation Qualified Code(s): J44.1 - Chronic obstructive pulmonary disease with (acute) exacerbation (5) Bipolar disorder Conclusion/Plan: The patient does have history of bipolar as well as anxiety and depression. The patient is on multiple psychiatric medications including Risperdal, Cymbalta , Remeron and Klonopin. It is unclear at this point as to how much the patient's psychiatric history is contributing to her noncompliance with treatment and how well she truly understands her diagnosis and prognosis. She does not appear to be making the best decisions for herself however she also does not appear to be acutely psychotic. At this point we will continue the patient's home psychiatric medications. We will consult social work. This was taken into account when she spoke to Palliative Care today. A daughter is supposedly on her way here and may be here tonight. We will speak to her to make sure this patient is safe when she returns to home. 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 The patient is supposed to be on lifelong Xarelto to prevent DVTs and PEs it appears the patient is not fully compliant with this treatment. She has had recurrent DVTs and PEs including most recently a DVT in her left leg requiring thrombectomy at [facility]. The patient left that hospitalization AMA on 05/06 and now presents back to our hospital with acute respiratory failure. It is possible that the patient may have had another pulmonary embolism however given that her management would not change we will continue her on Xarelto and not get another CT pulmonary angiogram. It appears that the specialist at [facility] have told the patient that there is nothing further they can do about her illness and they recommended palliative care/hospice for the patient. The patient however refused this and left AMA. In the emergency department here on 05/06 the patient is open to going home with palliative care however at this point the patient's oxygen requirement is too great for her to return home. We will treat her acute on chronic respiratory failure with hypoxia and once she is stabilized we will arrange for her to go home with palliative care. Although the patient does want to go home with palliative care , she had also wanted to be a full code. Yesterday, after speaking to her RN, Nimco Bunn, and understanding what a code meant, she didn't want to do that. Changed to DNR. Today she reiterates that with the Palliative Care [facility] [employer] and status noted.
[2017-05-07] MEDS: risperiDONE 1 MG TABLET PO SCH (21:09)
[2017-05-07] MEDS: MIRTAZAPINE 15 MG TABLET PO SCH (21:10)
[2017-05-07] MEDS: AZITHROMYCIN INJ 250 MG in SODIUM CHLORIDE 0.9% 250 ML IV SCH (21:11)
[2017-05-08] MEDS: clonazePAM 0.5 MG TABLET PO PRN ×3 (00:08→19:30)
[2017-05-08] MEDS: HYDROcod/ACETAM 10 MG/325 MG TABLET PO PRN ×5 (00:08→23:05)
[2017-05-08] MEDS: SODIUM CHLORIDE FLUSH 0.9% 10 ML SYRINGE IVP SCH ×4 (05:26→17:07)
[2017-05-08 05:33] LABS: BASOPHILS # (AUTO) 0.1 10^3/uL (0.0-0.1); BASOPHILS % (AUTO) 0.2 %; HGB - HEMOGLOBIN 10.5 g/dL (12.0-16.0); LYMPHOCYTES # (AUTO) 0.3 10^3/uL (1.5-3.5); LYMPHOCYTES % (AUTO) 1.1 %; MEAN CORPUSCULAR HEMOGLOBIN 22.9 pg (27.0-31.0); MEAN CORPUSCULAR HGB CONC 28.8 g/dL (32.0-36.0); MEAN CORPUSCULAR VOLUME 79.8 fL (81.0-99.0); MEAN PLATELET VOLUME 8.7 fL (7.9-10.8); MONOCYTES # (AUTO) 1.3 10^3/uL (0.0-1.0); MONOCYTES % (AUTO) 4.7 %; NEUTROPHILS # (AUTO) 27.2 10^3/uL (1.5-6.6); RED BLOOD COUNT 4.57 10^6/uL (4.20-5.40); WHITE BLOOD COUNT 28.9 x10^3/uL (4.8-10.8)
[2017-05-08 05:35] LABS: PLT - PLATELET COUNT 1741 10^3/uL (130-450)
[2017-05-08 05:42] LABS: CALCIUM 10.5 mg/dL (8.5-10.3)
[2017-05-08] MEDS: methylPREDNISolone SUCCINATE 40 MG/ML VIAL IVP SCH ×3 (06:10→23:04)
[2017-05-08] MEDS: SODIUM CHLORIDE FLUSH 0.9% 10 ML SYRINGE IVP PRN ×3 (06:11→23:05)
[2017-05-08 06:15] LABS: PLATELET MORPHOLOGY 1+ GIANT PLATELETS (NORMAL)
[2017-05-08 06:16] LABS: PLATELET ESTIMATE, MANUAL INCREASED (>450,000) (NORMAL)
[2017-05-08] MEDS: PANTOPRAZOLE 40 MG TABLET PO SCH (07:06)
[2017-05-08] MEDS: FORMOTEROL FUMARATE NEB 20 MCG/2 ML INH SCH ×2 (08:00→20:15)
[2017-05-08] MEDS: BUDESONIDE 0.5 MG/2 ML NEB INH SCH ×2 (08:00→20:15)
[2017-05-08] MEDS: SACCHAROMYCES BOULARDII 250 MG CAPSULE PO SCH ×2 (08:33→17:07)
[2017-05-08] MEDS: HYDROXYUREA 500 MG CAPSULE PO SCH (08:33)
[2017-05-08] MEDS: RIVAROXABAN 10 MG TABLET PO SCH (08:34)
[2017-05-08] MEDS: DULoxetine 30 MG CAPSULE PO SCH (08:34)
[2017-05-08] MEDS: POLYETHYLENE GLYCOL 3350 17 GM PACKET PO SCH (08:35)
[2017-05-08] MEDS: METOPROLOL SUCCINATE 25 MG TABLET PO SCH (09:51)
[2017-05-08] MEDS: HYDROcod/ACETAM 5/325 MG TABLET PO PRN (12:31)
[2017-05-08] MEDS: HYDROcod/ACETAM 7.5 MG/325 MG TABLET PO PRN (14:29)
--- NOTE | 2017-05-08 15:43 | PROVIDER PROGRESS NOTE ---
Subjective - Prog Note Date Prog Note Date: 05/08/17 Prog Note Time: 12:30 - Subjective Pt reports feeling: Improved (The patient says she is less short of breath and is able to exert herself a little bit more physically before she becomes too short of breath to continue. She says she slept well last night and her appetite is poor to fair. She denies any fever or chills.) Current Medications - Current Medications Current Medications: Acetaminophen, and azithromycin, budesonide, clonazepam, duloxetine, formoterol , hydrocodone/acetaminophen, hydroxyurea, methylprednisolone, metoprolol, mirtazapine, ondansetron, pantoprazole, polyethylene glycol, Compazine,Risperdal , Xarelto, Saccharomyces, sodium chloride, tramadol, Ambien. Objective - Vital Signs/Intake & Output Reviewed Vital Signs: Yes Vital Signs: Vital Signs x48h Temp Pulse Pulse Resp BP Pulse Ox 05/08/17 08:29 36.5 C 76 14 140/92 H 94 05/08/17 08:00 75 20 Intake & Output: Intake & Output 05/05/17 05/06/17 05/07/17 05/08/17 22:59 23:59 23:59 23:59 Intake Total 1360 720 Output Total 630 Balance 730 720 - Objective General Appearance: positive: Alert, Mild distress Eyes Bilateral: positive: Normal inspection, PERRL, EOMI, No lid inflammation, Conjunctivae nml, No scleral icterus ENT: positive: ENT inspection nml, Pharynx nml, No signs of dehydration Neck: positive: Nml inspection, Thyroid nml, No JVD, Trachea midline. negative : Thyromegaly Respiratory: positive: Chest non-tender, No respiratory distress, Breath sounds nml, Other (Lung sounds are diminished in all [place]). negative: Wheezes, Rales , Rhonchi Cardiovascular: positive: Regular rate & rhythm, No murmur, No gallop Abdomen: positive: Non-tender, No organomegaly, Nml bowel sounds, No distention. negative: Guarding, Rebound Back: positive: Nml inspection. negative: CVA tenderness (R), CVA tenderness (L ) Skin: positive: Color nml, No rash, Warm, Dry. negative: Cyanosis Extremities: positive: Non-tender, Full ROM, Nml appearance, No pedal edema Neurologic/Psychiatric: positive: Oriented x3, CN's nml (2-12), Motor nml, Sensation nml, Mood/affect nml - Lab Results Fish Bones: 05/08/17 05:19 05/08/17 05:19 Other Labs: Lab Results x24hrs 05/08/17 05/08/17 Range/Units 05:19 05:19 WBC 28.9 H (4.8-10.8) x10^3/uL RBC 4.57 (4.20-5.40) 10^6/uL Hgb 10.5 L (12.0-16.0) g/dL Hct 36.4 L (37.0-47.0) % MCV 79.8 L (81.0-99.0) fL MCH 22.9 L (27.0-31.0) pg MCHC 28.8 L (32.0-36.0) g/dL RDW 29.0 H (12.0-15.0) % Plt Count 1741 H* (130-450) 10^3/uL MPV 8.7 (7.9-10.8) fL Neut # 27.2 H (1.5-6.6) 10^3/uL Lymph # 0.3 L (1.5-3.5) 10^3/uL [place] # 1.3 H (0.0-1.0) 10^3/uL Eos # 0.0 (0.0-0.7) 10^3/uL Baso # 0.1 (0.0-0.1) 10^3/uL Absolute Nucleated RBC 0.04 x10^3/uL Nucleated RBC % 0.2 /100WBC Manual Slide Review Indicated Platelet Estimate INCREASED (>450,000) (NORMAL) Platelet Morphology 1+ GIANT PLATELETS (NORMAL) RBC Morph Micro Appear 1+ STOMATOCYTES (NORMAL) Sodium 138 (135-145) mmol/L Potassium 4.9 (3.5-5.0) mmol/L Chloride 100 L (101-111) mmol/L Carbon Dioxide 30 (21-32) mmol/L Anion Gap 8.0 (6-13) BUN 38 H (6-20) mg/dL Creatinine 1.0 (0.4-1.0) mg/dL Estimated GFR (MDRD) 55 L (>89) Glucose 144 H (70-100) mg/dL Calcium 10.5 H (8.5-10.3) mg/dL Assessment/Plan - Problem List (1) Acute on chronic respiratory failure with hypoxia Impression: The patient has a history of multiple pulmonary emboli secondary to her essential thrombocytosis. This has caused severe pulmonary hypertension and the patient also has a history of COPD. At this time she is breathing fairly easily on 4 L/min supplemental oxygen via nasal cannula. She appears to be stable enough to consider to consider discharge tomorrow unless there are new problems overnight. We have consulted hospice services and I have spoken with the hospice medical research assistant at length regarding this patient's case, and the plan at this time is to discharge the patient home with supplemental oxygen and in the care of her daughter who is a [employer]. Hospice will be out the following day to admit her to hospice services. (2) Atypical pneumonia Impression: The patient has been treated with azithromycin IV for 4 days. We will stop it at this point as there was never any indication on chest x-ray that the patient had a pneumonia and this should cover any type of intracellular pneumonia at this point. The patient's white blood cell count remains elevated and climbing but she is also on 2 different types of inhaled steroids and IV push steroids 3 times a day. She remains afebrile. (3) COPD (chronic obstructive pulmonary disease) Impression: The patient appears to be doing better. She is comfortable on 4 L/m of oxygen via nasal cannula at this time. She will continue to take budesonide, formoterol ,and prednisone. Qualifiers: COPD type: COPD with acute exacerbation Qualified Code(s): J44.1 - Chronic obstructive pulmonary disease with (acute) exacerbation (4) Pulmonary edema Impression: The patient showed pulmonary vascular congestion on admission. She has been given Lasix and does not show any signs of any fluid overload at this time. I will repeat the chest x-ray tomorrow morning. Qualifiers: Chronicity: acute Qualified Code(s): J81.0 - Acute pulmonary edema (5) Bipolar disorder Impression: The patient does not appear to be manic or depressed at this time. Continue Risperdal nightly. (6) Essential thrombocytosis Impression: The patient's platelet count continues to rise despite being on methotrexate. Her platelet count today is 1,741,000. We have asked hospice to consult on this case and patient met with Dr. Grigsby earlier today. The plan at this time is to discharge the patient home with home oxygen and for hospice to come in the next day. Her prognosis at this point is poor as she is not responding to treatment for the essential thrombocytosis and it is expected that she will continue to have more pulmonary emboli and DVTs as disease progresses.
[2017-05-08] MEDS: traMADol 50 MG TABLET PO PRN (17:44)
[2017-05-08] MEDS: MIRTAZAPINE 15 MG TABLET PO SCH (20:36)
[2017-05-08] MEDS: risperiDONE 1 MG TABLET PO SCH (20:38)
[2017-05-08] MEDS: AZITHROMYCIN INJ 250 MG in SODIUM CHLORIDE 0.9% 250 ML IV SCH (20:43)
[2017-05-09] MEDS: SODIUM CHLORIDE FLUSH 0.9% 10 ML SYRINGE IVP SCH ×2 (05:42→11:29)
[2017-05-09] MEDS: methylPREDNISolone SUCCINATE 40 MG/ML VIAL IVP SCH (06:12)
[2017-05-09] MEDS: SODIUM CHLORIDE FLUSH 0.9% 10 ML SYRINGE IVP PRN (06:13)
[2017-05-09] MEDS: PANTOPRAZOLE 40 MG TABLET PO SCH (06:13)
[2017-05-09] MEDS: FORMOTEROL FUMARATE NEB 20 MCG/2 ML INH SCH (07:31)
[2017-05-09] MEDS: BUDESONIDE 0.5 MG/2 ML NEB INH SCH (07:31)
[2017-05-09] MEDS: HYDROcod/ACETAM 7.5 MG/325 MG TABLET PO PRN ×2 (08:02→11:50)
[2017-05-09] MEDS: RIVAROXABAN 10 MG TABLET PO SCH (08:02)
[2017-05-09] MEDS: clonazePAM 0.5 MG TABLET PO PRN (08:02)
[2017-05-09] MEDS: SACCHAROMYCES BOULARDII 250 MG CAPSULE PO SCH (08:02)
[2017-05-09] MEDS ORDERED: DOCUSATE SODIUM 250 MG CAPSULE PO SCH (09:00)
[2017-05-09] MEDS ORDERED: SENNA 8.6 MG TABLET PO SCH (09:00)
[2017-05-09] MEDS: POLYETHYLENE GLYCOL 3350 17 GM PACKET PO SCH (09:01)
[2017-05-09] MEDS: DULoxetine 30 MG CAPSULE PO SCH (09:02)
[2017-05-09] MEDS: HYDROXYUREA 500 MG CAPSULE PO SCH (09:02)
[2017-05-09] MEDS: METOPROLOL SUCCINATE 25 MG TABLET PO SCH (09:04)
[2017-05-09 11:22] VITALS: BP 129/80
--- NOTE | 2017-05-09 11:37 | Discharge Plan ---
Discharge Plan Disposition: 01 Home, Self Care Condition: Serious Prescriptions: HYDROcodone/ACET 10/325 [[place] 10 mg/325 mg] 1 tab PO Q4HR PRN #10 tablet PRN Reason: Pain 8 to 10 Diet: Regular Activity Restrictions: Activity as Tolerated Shower Restrictions: No Driving Restrictions: No Weight Bearing: Full Weight Instruction Topics: Care Palliative, Life Support Tx Choices No Smoking: If you smoke, Please STOP! Call for help. Follow-up with: Winter Rosado MD [Primary Care Provider] -
--- NOTE | 2017-05-09 11:41 | DISCHARGE SUMMARY ---
Discharge Summary Admit Date: 05/05/17 Discharge Date: 05/09/17 Discharging Provider: Rachel Tolentino DO Primary Care Provider: Winter Rosado Code Status: Do Not Attempt Resuscitation Condition at Discharge: Serious Discharge Disposition: 01 Home, Self Care - DIAGNOSES Admission Diagnoses: 1. Acute on chronic respiratory failure with hypoxemia 2. Atypical pneumonia 3. Pulmonary edema 4. COPD 5. Bipolar disorder 6. Essential thrombocytosis Discharge Diagnoses with Status of Each Condition: 1. Acute on chronic respiratory failure with hypoxemia -The patient has a history of chronic pulmonary emboli causing severe pulmonary hypertension with a previous history of COPD. She is resting comfortably and breathing easily on 5 L/min supplemental oxygen. We have arranged for home oxygen which will be in place when the patient goes home today. She will also be seen by hospice services starting tomorrow. 2. Atypical pneumonia-The patient was treated with several days of IV antibiotics. There are no signs of any pneumonia at this time. 3. Pulmonary edema-The patient has been diuresed and is breathing easier. Repeat chest x-ray did not show any pulmonary vascular congestion. 4. COPD-Severe, with multiple pulmonary emboli. Continue supplemental oxygen and bronchodilators as needed. 5. Bipolar disorder - The patient's bipolar disorder appears to be well managed at this time. We will continue current medication regimen. 6. Essential thrombocytosis - The patient's platelet count is markedly elevated at 1.7 million. I expect this to cause further pulmonary emboli and blood clots. The patient is currently on methotrexate. - HPI History of Present Illness: From Dr. 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 The patient was recently seen in our emergency department on 04/19/2017 at which time she was complaining of left lower extremity swelling at that time she underwent a left lower extremity Doppler ultrasound which revealed extensive left leg DVT from the external iliac vein to the calf veins which had increased since 04/09/2016 and at that time she was transferred to [facility] for vascular surgery assessment. The patient has been hospitalized at [facility] for the last 2 weeks. While there the patient underwent a left lower extremity thrombectomy and had been recovering. The patient was told by specialist at [facility] that her diagnosis was terminal and in the setting of her not being compliant with her anticoagulation that her best options were hospice or palliative care. Apparently the patient was not happy with either of these options and she signed out of [facility] AGAINST MEDICAL ADVICE earlier this morning and was taken home by her caregiver. The patient states that she was on oxygen while she was hospitalized but she states that she was not requiring oxygen at home. The patient's caregiver took the patient home with oxygen however [facility] did not prescribe a portable oxygen tank so it is unknown as to how the patient went home with oxygen. According to the patient when she arrived at home today she felt okay but she states at home she has 19 steps that she has to go up. She made it about half way up when she states that she became very short of air and felt lightheaded. The next thing she states that she remembers is EMS bringing her into the hospital. According to EMS and the patient's caregiver the patient collapsed and lost consciousness while she was going up the steps. On arrival EMS found that the patient's oxygen saturation was in the 60s. The patient was placed on oxygen and her color quickly improved and she slowly regained consciousness. However she was still quite hypoxic on arrival to the emergency department. The patient does complain of feeling short of air but otherwise denies any chest pain, orthopnea, PND, increased lower extremity swelling from her baseline. She also denies any headaches, blurred vision, runny nose, sore throat, nasal congestion, cough, fevers, chills, abdominal pain, nausea, vomiting, diarrhea, constipation, urinary urgency, urinary frequency, dysuria, joint swelling, muscle aches, joint pain, back pain, neck stiffness, recent unintentional weight loss, night sweats, changes in her appetite or any focal neurologic deficits. The emergency room physician Dr. Stoddard spoke with Sumeet Martin MD from [facility] who stated that there is no more treatment for the patient. She was offered palliative care/hospice and declined this option. He told the emergency room physician that there was no reason to transfer her at this time. He stated that she should be on oxygen at home and Xarelto 20 mg daily. On presentation to the emergency department the patient was afebrile but she was tachycardic and requiring a nonrebreather to maintain her oxygen saturation in the mid 90s. The patient underwent routine lab work which did reveal a leukocytosis of 17.9 which is elevated from her most recent baseline of around 12.9. The patient also had a thrombocytosis of 1431 which is also elevated from her baseline. The patient underwent a chest x-ray which revealed probable mild pulmonary edema and atypical infection. Given the patient's severe hypoxia she was admitted to the intensive care unit with acute on chronic respiratory failure with hypoxia likely secondary to pneumonia, pulmonary edema and pulmonary hypertension. - HOSPITAL COURSE Hospital Course: The patient was admitted to the intensive care unit and stabilized and her respiratory status improved to the point where she is now breathing easily on 5 L/min supplemental oxygen. We had multiple discussions with the patient regarding her care and her prognosis and she elected to bring hospice services into her home on discharge. Because of her essential thrombocytosis it is not expected that she will recover from this and it is expected that she will continue to decline to the end of life. At this time the patient is requesting to be transferred back home where her daughter will help care for her and she will make arrangements for other caregivers when her daughter has to leave town to go back to her home. - ALLERGIES Allergies/Adverse Reactions: Allergies Allergy/AdvReac Type Severity Reaction Status Date / Time diphenhydramine HCl * Allergy Mild Rash Verified 05/05/17 17:16 [From Benadryl] morphine Allergy Mild Nausea Verified 05/05/17 17:16 iron dextran complex Allergy Unknown Verified 05/05/17 17:16 - MEDICATIONS Home Medications: Ambulatory Orders Medication Instructions Recorded Confirmed clonazePAM [Klonopin] 0.5 - 1 mg PO TID PRN 10/01/12 05/06/17 Mirtazapine [Remeron] 30 mg PO QPM 05/19/14 05/06/17 traMADol [Ultram] 50 mg PO Q4H PRN MDD 5 TABLETS 08/17/15 05/06/17 Omeprazole 20 mg PO BID 12/30/15 05/06/17 Metoprolol Succinate 25 mg PO DAILY 01/13/16 05/06/17 Albuterol Sulf [Ventolin Hfa 2 puffs INH Q4H PRN 03/03/16 05/06/17 Inhaler] Budesonide/Formoterol Fumarate 2 puffs INH BID 03/03/16 05/06/17 [Symbicort 160-4.5 Mcg Inhaler] DULoxetine [Cymbalta] 30 mg PO DAILY 03/03/16 05/06/17 Hydroxyurea 500 mg PO DAILY 03/03/16 05/06/17 Rivaroxaban [Xarelto] 20 mg PO DAILYWM 03/03/16 05/06/17 hydrOXYzine pamoate [Hydroxyzine 50 mg PO QPM PRN 03/03/16 05/06/17 Pamoate] Furosemide [Lasix] 40 mg PO BIDDIURETIC #60 tablet 03/03/17 05/06/17 Spironolactone [Aldactone] 25 mg PO BID #60 tablet 03/03/17 05/06/17 Risperidone [Risperdal] 1.5 mg PO QPM 05/06/17 05/06/17 HYDROcodone/ACET 10/325 [[place] 10 1 tab PO Q4HR PRN #10 tablet 05/09/17 mg/325 mg] Senna [Senokot] 8.6 - 17.2 mg PO DAILY tablet 05/09/17 Zolpidem [Ambien] 5 mg PO QPM PRN tablet 05/09/17 - PHYSICAL EXAM AT DISCHARGE General Appearance: positive: No acute distress, Alert, Anxious Eyes Bilateral: positive: Normal inspection, PERRL, EOMI, No lid inflammation, Conjunctivae nml, No scleral icterus ENT: positive: ENT inspection nml, Pharynx nml, No signs of dehydration Neck: positive: Nml inspection, Thyroid nml, No JVD, Trachea midline. negative : Thyromegaly Respiratory: positive: Chest non-tender, No respiratory distress, Breath sounds nml. negative: Wheezes, Rales, Rhonchi Cardiovascular: positive: Regular rate & rhythm, No murmur, No gallop Peripheral Pulses: positive: 1+ Abdomen: positive: Non-tender, No organomegaly, Nml bowel sounds, No distention. negative: Guarding, Rebound Back: positive: Nml inspection. negative: CVA tenderness (R), CVA tenderness (L ) Skin: positive: Color nml, No rash, Warm, Dry. negative: Cyanosis Extremities: positive: Non-tender, Full ROM, Nml appearance, No pedal edema Neurologic/Psychiatric: positive: Oriented x3, CN's nml (2-12), Motor nml, Sensation nml, Mood/affect nml - LABS Result Diagrams: 05/08/17 05:19 05/08/17 05:19 - DIAGNOSTIC IMAGING Diagnostic Imaging Results: Final report reviewed Diagnostic Imaging Results Comments: EXAM: CHEST RADIOGRAPHY EXAM DATE: 05/05/2017 09:12 PM. CLINICAL HISTORY: Hypoxia. COMPARISON: 04/19/2017, 02/26/2017. TECHNIQUE: 1 view. FINDINGS: Lungs/Pleura: Hazy left greater than right perihilar opacities with interstitial prominence. No focal consolidation. No pleural effusion. No pneumothorax. Mediastinum: Heart is prominent. Median sternotomy wires. Other: None. IMPRESSION: Probable mild pulmonary edema. Atypical infection could have this appearance. - FOLLOW UP Follow Up: Hospice is coming out tomorrow to enroll the patient and will follow up with her. - TIME SPENT Time Spent in Discharge (Minutes): 40
[2017-05-09] MEDS: traMADol 50 MG TABLET PO PRN (12:53)
== END 2017-05-09 14:25 | disposition home or self-care (01) | DRG 189 ==
LOC: EDUNIT# → ED 17:05 → OBS 20:48 → OBSVTOIN 20:48 → ICU 22:52
PROVIDERS: ADMIT Internal Medicine; ATTEND Hospitalist
DX: R09.02 Hypoxemia (principal); I82.402 Acute embolism and thrombosis of unspecified deep veins of left lower extremity; J44.9 Chronic obstructive pulmonary disease, unspecified; J96.21 Acute and chronic respiratory failure with hypoxia; J18.8 Other pneumonia, unspecified organism; J81.1 Chronic pulmonary edema; J44.0 Chronic obstructive pulmonary disease with (acute) lower respiratory infection; N28.9 Disorder of kidney and ureter, unspecified; J44.1 Chronic obstructive pulmonary disease with (acute) exacerbation; D47.1 Chronic myeloproliferative disease; I13.0 Hypertensive heart and chronic kidney disease with heart failure and stage 1 through stage 4 chronic kidney disease, or unspecified chronic kidney disease; N18.3 Chronic kidney disease, stage 3 (moderate); I50.811 Acute right heart failure; F31.9 Bipolar disorder, unspecified; I27.23 Pulmonary hypertension due to lung diseases and hypoxia; D47.3 Essential (hemorrhagic) thrombocythemia; G43.909 Migraine, unspecified, not intractable, without status migrainosus; G62.9 Polyneuropathy, unspecified; K21.9 Gastro-esophageal reflux disease without esophagitis; F41.9 Anxiety disorder, unspecified; M41.9 Scoliosis, unspecified; Z66 Do not resuscitate; Z79.01 Long term (current) use of anticoagulants; Z79.51 Long term (current) use of inhaled steroids; Z79.899 Other long term (current) drug therapy; Z87.01 Personal history of pneumonia (recurrent); Z86.711 Personal history of pulmonary embolism; Z99.81 Dependence on supplemental oxygen; Z86.73 Personal history of transient ischemic attack (TIA), and cerebral infarction without residual deficits; Z87.891 Personal history of nicotine dependence
CPT/HCPCS: 36415; 71045; 80048; 80053; 83690; 85025; 87150; 93306; 94640; 96374; 99223; 99284; 99285

== ENCOUNTER 2017-05-22 22:42 | Outpatient (CLI) | payer MEDICARE, MEDICAID | END 2017-05-22 22:43 | disposition EMS.NT | LOC: EMS 22:42 | PROVIDERS: ATTEND Surgery | DX: Z03.89 Encounter for observation for other suspected diseases and conditions ruled out (principal) ==

== ENCOUNTER 2017-06-21 14:04 | Outpatient (CLI) | payer MEDICARE, MEDICAID | END 2017-06-21 14:05 | disposition critical access hospital (66) | LOC: EMS 14:04 | PROVIDERS: ATTEND Surgery | DX: R06.00 Dyspnea, unspecified (principal) | CPT/HCPCS: A0425; A0427 ==

== ENCOUNTER 2017-06-21 14:10 | Emergency (ER) | payer MEDICARE, MEDICAID ==
[2017-06-21] MEDS ORDERED: LORazepam 2 MG/ML VIAL IVP STA (14:35)
--- NOTE | 2017-06-21 14:38 | ED Physician Documentation ---
PD HPI CHEST PAIN - Stated complaint Stated Complaint: SOA - Chief complaint Chief Complaint: Resp - History obtained from History obtained from: Patient, EMS, Caregiver - History of Present Illness Timing - onset: Today (This is a 67-year-old woman with complicated past medical history including massive PE status post thrombectomy, thrombocytosis and medication noncompliance. She is chronically anticoagulated. She had some teeth removed yesterday, it seemed to go well. Today she suddenly felt short of breath and odd. There was a slight chest pain with it. The pain is gone. Now she feels more anxious than anything else. Her vital signs are at her baseline with sats in the low 90s, she wears supplemental oxygen. Of note she was in hospice until a few weeks ago. She was dismissed or left hospice because of some disagreements over medication management.) Review of Systems Ten Systems: 10 systems reviewed and negative Constitutional: denies: Fever, Chills Cardiac: denies: Palpitations, Pedal edema, Calf pain Respiratory: reports: Cough. denies: Hemoptysis, Wheezing GI: denies: Abdominal Pain PD PAST MEDICAL HISTORY - Past Medical History Cardiovascular: Hypertension, Deep vein thrombosis, Pulmonary embolism Respiratory: COPD, Pneumonia, Shortness of breath Neuro: Headache/migraine, Peripheral neuropathy, Other Endocrine/Autoimmune: None GI: GERD, Chronic constipation CARDIOLOGY NURSE PRACTITIONER: None : Renal insuffiency HEENT: None Psych: Depression, Anxiety, Bipolar disorder Musculoskeletal: Scoliosis Derm: None - Past Surgical History Past Surgical History: Yes Ortho: Spine surgery /CARDIOLOGY NURSE PRACTITIONER: section, Hysterectomy - Present Medications Home Medications: Ambulatory Orders Medication Instructions Recorded Confirmed clonazePAM [Klonopin] 0.5 - 1 mg PO TID PRN 10/01/12 05/06/17 Mirtazapine [Remeron] 30 mg PO QPM 05/19/14 05/06/17 traMADol [Ultram] 50 mg PO Q4H PRN MDD 5 TABLETS 08/17/15 05/06/17 Omeprazole 20 mg PO BID 12/30/15 05/06/17 Metoprolol Succinate 25 mg PO DAILY 01/13/16 05/06/17 Albuterol Sulf [Ventolin Hfa 2 puffs INH Q4H PRN 03/03/16 05/06/17 Inhaler] Budesonide/Formoterol Fumarate 2 puffs INH BID 03/03/16 05/06/17 [Symbicort 160-4.5 Mcg Inhaler] DULoxetine [Cymbalta] 30 mg PO DAILY 03/03/16 05/06/17 Hydroxyurea 500 mg PO DAILY 03/03/16 05/06/17 Rivaroxaban [Xarelto] 20 mg PO DAILYWM 03/03/16 05/06/17 hydrOXYzine pamoate [Hydroxyzine 50 mg PO QPM PRN 03/03/16 05/06/17 Pamoate] Furosemide [Lasix] 40 mg PO BIDDIURETIC #60 tablet 03/03/17 05/06/17 Spironolactone [Aldactone] 25 mg PO BID #60 tablet 03/03/17 05/06/17 Risperidone [Risperdal] 1.5 mg PO QPM 05/06/17 05/06/17 HYDROcodone/ACET 10/325 [[place] 10 1 tab PO Q4HR PRN #10 tablet 05/09/17 mg/325 mg] Senna [Senokot] 8.6 - 17.2 mg PO DAILY tablet 05/09/17 Zolpidem [Ambien] 5 mg PO QPM PRN tablet 05/09/17 - Allergies Allergies/Adverse Reactions: Allergies Allergy/AdvReac Type Severity Reaction Status Date / Time diphenhydramine HCl * Allergy Mild Rash Verified 05/05/17 17:16 [From Benadryl] morphine Allergy Mild Nausea Verified 05/05/17 17:16 iron dextran complex Allergy Unknown Verified 05/05/17 17:16 - Social History Does the pt smoke?: No Smoking Status: Never smoker Does the pt drink ETOH?: No Does the pt have substance abuse?: No - Immunizations Immunizations are current?: Yes - POLST Patient has POLST: Yes POLST Status: Full Code PD ED PE NORMAL - Vitals Vital signs reviewed: Yes - General General: Alert and oriented X 3, No acute distress - Cardiac Cardiac: RRR, No murmur - Respiratory Respiratory: No respiratory distress, Other (Diminished at the right base, slightly rhonchorous in the left base.) - Abdomen Abdomen: Non tender - Extremities Extremities: No edema, No calf tenderness / cord - Neuro Neuro: Alert and oriented X 3, Normal speech Results - Vitals Vitals: Vital Signs - 24 hr 06/21/17 06/21/17 14:15 15:00 Temperature 36.3 C L Heart Rate 74 69 Respiratory 18 12 Rate Blood Pressure 126/73 86/66 L O2 Saturation 92 94 Oxygen O2 Source [] 3L O2 via NC O2 Source Nasal cannula Oxygen Flow Rate 5 - EKG (time done) 1414 Rate: Rate (enter#) (80) Rhythm: NSR [place]: Normal Intervals: Normal NM QRS: Normal Ischemia: Non specific changes Compare to prior EKG: Unchanged from prior EKG Computer interpretation: Agree with computer - Labs Labs: Laboratory Tests 06/21/17 06/21/17 14:53 14:53 WBC 7.5 RBC 4.16 L Hgb 10.3 L Hct 33.7 L MCV 80.9 L MCH 24.8 L MCHC 30.7 L RDW 23.7 H Plt Count 766 H MPV 9.0 Manual Slide Review Indicated Sodium 136 Potassium 4.5 Chloride 97 L Carbon Dioxide 32 Anion Gap 7.0 BUN 27 H Creatinine 1.5 H Estimated GFR (MDRD) 35 L Glucose 115 H Calcium 8.5 Total Bilirubin 0.5 AST 16 ALT 16 Alkaline Phosphatase 72 Total Protein 6.9 Albumin 3.8 Globulin 3.1 Albumin/Globulin Ratio 1.2 Lipase 21 L - Rads (name of study) 2v chest Radiology: EMP read contemporaneously (Mild CHF) PD MEDICAL DECISION MAKING - ED course ED course: 67-year-old woman with poor functional status who was on hospice, no longer because of some either misunderstandings or arguments about medication management presents by ambulance for shortness of breath. She is anticoagulated and her pulse oximetry is basically at her baseline which is low 90s/high 80s on nasal cannula. She has physical examination findings and chest x-ray findings consistent with mild CHF for which she was she was administered 40 mg of Lasix IV. Her vital signs otherwise seen also at her baseline. Departure - Departure Disposition: 01 Home, Self Care Clinical Impression: Congestive heart failure Qualifiers: Heart failure type: unspecified Heart failure chronicity: acute on chronic Qualified Code(s): I50.9 - Heart failure, unspecified Condition: Stable Record reviewed to determine appropriate education?: Yes Instructions: ED CHF General Comments: Call your doctor to arrange a follow-up appointment, make the next available appointment. In the interim, return anytime if worse or if new symptoms develop.
[2017-06-21 15:22] LABS: ALBUMIN 3.8 g/dL (3.2-5.5); ALBUMIN/GLOBULIN RATIO 1.2 (1.0-2.2); BILIRUBIN,TOTAL 0.5 mg/dL (0.2-1.0); CALCIUM 8.5 mg/dL (8.5-10.3); CREATININE 1.5 mg/dL (0.4-1.0); TOTAL PROTEIN 6.9 g/dL (6.7-8.2)
[2017-06-21 15:31] LABS: BASOPHILS # (AUTO) 0.1 10^3/uL (0.0-0.1); BASOPHILS % (AUTO) 0.8 %; EOSINOPHILS # (AUTO) 0.1 10^3/uL (0.0-0.7); EOSINOPHILS % (AUTO) 1.8 %; HGB - HEMOGLOBIN 10.3 g/dL (12.0-16.0); LYMPHOCYTES # (AUTO) 0.4 10^3/uL (1.5-3.5); LYMPHOCYTES % (AUTO) 5.3 %; MEAN CORPUSCULAR HEMOGLOBIN 24.8 pg (27.0-31.0); MEAN CORPUSCULAR HGB CONC 30.7 g/dL (32.0-36.0); MEAN CORPUSCULAR VOLUME 80.9 fL (81.0-99.0); MONOCYTES # (AUTO) 1.1 10^3/uL (0.0-1.0); MONOCYTES % (AUTO) 14.2 %; NEUTROPHILS # (AUTO) 5.8 10^3/uL (1.5-6.6); NEUTROPHILS % (AUTO) 77.9 %; PLT - PLATELET COUNT 766 10^3/uL (130-450); RED BLOOD COUNT 4.16 10^6/uL (4.20-5.40); RED CELL DISTRIBUTION WIDTH 23.7 % (12.0-15.0); WHITE BLOOD COUNT 7.5 x10^3/uL (4.8-10.8)
--- NOTE | 2017-06-21 15:42 | XRAY Report ---
EXAM: CHEST RADIOGRAPHY EXAM DATE: 06/21/2017 03:31 PM. CLINICAL HISTORY: Dyspnea. COMPARISON: 02/26/2017 and 05/05/2017. TECHNIQUE: 2 views. FINDINGS: Lungs/Pleura: Diffuse hazy prominence of lung markings, decreased on the right compared to the April study, but increased on the left. No consolidation, definite effusion, or pneumothorax. Mediastinum: Mild cardiomegaly, increased slightly. Upper lobe vessels not distended. Other: Status post median sternotomy. Scoliosis, degenerative changes. IMPRESSION: Mild asymmetric edema, most likely congestive failure. [facility] Referring Provider Line: [phone] SITE ID: [id number]
[2017-06-21] MEDS ORDERED: FUROSEMIDE 40 MG/4 ML VIAL IVP STA (15:55)
[2017-06-21 16:18] VITALS: BP 99/67
[2017-06-21 16:18] LABS: PLATELET ESTIMATE, MANUAL INCREASED (>450,000) (NORMAL); PLATELET MORPHOLOGY 2+ LARGE PLATELETS (NORMAL)
== END 2017-06-21 17:47 | disposition home or self-care (01) ==
LOC: EDUNIT# → ED 14:10
DX: I11.0 Hypertensive heart disease with heart failure (principal); I50.9 Heart failure, unspecified; R94.31 Abnormal electrocardiogram [ECG] [EKG]; G62.9 Polyneuropathy, unspecified; Z86.718 Personal history of other venous thrombosis and embolism; Z86.711 Personal history of pulmonary embolism; Z91.14 Patient's other noncompliance with medication regimen
CPT/HCPCS: 36415; 71046; 80053; 83690; 84484; 85025; 93005; 96374; 96375; 99284; J2060

== ENCOUNTER 2017-08-28 09:17 | Outpatient (CLI) | payer MEDICARE, MEDICAID | END 2017-08-28 09:18 | disposition critical access hospital (66) | LOC: EMS 09:17 | PROVIDERS: ATTEND Surgery | DX: R51 Headache (principal); M54.2 Cervicalgia; R11.10 Vomiting, unspecified; R68.89 Other general symptoms and signs | CPT/HCPCS: A0425; A0429 ==

== ENCOUNTER 2017-08-28 09:21 | Emergency (ER) | payer MEDICARE, MEDICAID ==
[2017-08-28] MEDS ORDERED: clonazePAM 0.5 MG TABLET PO STA (10:10)
--- NOTE | 2017-08-28 10:15 | ED Physician Documentation ---
History of Present Illness - Stated complaint Stated Complaint: POSS MED REACTION - Chief complaint Chief Complaint: General - History obtained from History obtained from: Patient, EMS - History of Present Illness Timing: Yesterday - Additonal information Additional information: 67 y/o female with a history of chronic anxiety, chronic pain and medication non -compliance as well as prescription drug abuse has recently started suboxone and stopped her hydrocodone. She is tapering on clonapin as well. She is feeling anxious and shaky. She is not having abdominal pain or nausea or diarrhea. She was given a full strip of suboxone yesterday and feels this may be the problem. She is complaining of some urinary frequency as well. She is set up with a skin pass operator who is dispensing medications. Review of Systems Constitutional: denies: Fever Eyes: denies: Decreased vision Ears: denies: Ear pain Nose: denies: Congestion Throat: denies: Sore throat Cardiac: denies: Chest pain / pressure, Palpitations Respiratory: reports: Dyspnea. denies: Cough GI: denies: Abdominal Pain, Nausea, Vomiting : reports: Frequency. 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: None : Renal insuffiency HEENT: None Psych: Depression, Anxiety, Bipolar disorder Musculoskeletal: Scoliosis Derm: None - Past Surgical History Past Surgical History: Yes Ortho: Spine surgery /SPECIALIST FIELD ENGINEER: section, Hysterectomy - Present Medications Home Medications: Ambulatory Orders Medication Instructions Recorded Confirmed clonazePAM [Klonopin] 0.5 - 1 mg PO TID PRN 10/01/12 05/06/17 Mirtazapine [Remeron] 30 mg PO QPM 05/19/14 05/06/17 traMADol [Ultram] 50 mg PO Q4H PRN MDD 5 TABLETS 08/17/15 05/06/17 Omeprazole 20 mg PO BID 12/30/15 05/06/17 Metoprolol Succinate 25 mg PO DAILY 01/13/16 05/06/17 Albuterol Sulf [Ventolin Hfa 2 puffs INH Q4H PRN 03/03/16 05/06/17 Inhaler] Budesonide/Formoterol Fumarate 2 puffs INH BID 03/03/16 05/06/17 [Symbicort 160-4.5 Mcg Inhaler] DULoxetine [Cymbalta] 30 mg PO DAILY 03/03/16 05/06/17 Hydroxyurea 500 mg PO DAILY 03/03/16 05/06/17 Rivaroxaban [Xarelto] 20 mg PO DAILYWM 03/03/16 05/06/17 hydrOXYzine pamoate [Hydroxyzine 50 mg PO QPM PRN 03/03/16 05/06/17 Pamoate] Furosemide [Lasix] 40 mg PO BIDDIURETIC #60 tablet 03/03/17 05/06/17 Spironolactone [Aldactone] 25 mg PO BID #60 tablet 03/03/17 05/06/17 Risperidone [Risperdal] 1.5 mg PO QPM 05/06/17 05/06/17 HYDROcodone/ACET 10/325 [[place] 10 1 tab PO Q4HR PRN #10 tablet 05/09/17 mg/325 mg] Senna [Senokot] 8.6 - 17.2 mg PO DAILY tablet 05/09/17 Zolpidem [Ambien] 5 mg PO QPM PRN tablet 05/09/17 - Allergies Allergies/Adverse Reactions: Allergies Allergy/AdvReac Type Severity Reaction Status Date / Time diphenhydramine HCl * Allergy Mild Rash Verified 05/05/17 17:16 [From Benadryl] morphine Allergy Mild Nausea Verified 05/05/17 17:16 iron dextran complex Allergy Unknown Verified 05/05/17 17:16 - Social History Does the pt smoke?: No Smoking Status: Never smoker Does the pt drink ETOH?: No Does the pt have substance abuse?: No - Immunizations Immunizations are current?: Yes - POLST Patient has POLST: Yes POLST Status: Full Code PD ED PE NORMAL - Vitals Vital signs reviewed: Yes (hypertensive mild ) - General General: Alert and oriented X 3, Well developed/nourished, Other (slight tremor and appears anxious ) - HEENT HEENT: Atraumatic, PERRL, EOMI - Neck Neck: Supple, no meningeal sign, No bony TTP - Cardiac Cardiac: RRR, No murmur - Respiratory Respiratory: No respiratory distress, Clear bilaterally - Abdomen Abdomen: Soft, Non tender - Back Back: No CVA TTP, No spinal TTP - Derm Derm: Normal color, Warm and dry, No rash - Extremities Extremities: No deformity, No edema - Neuro Neuro: Alert and oriented X 3, motor vehicle salesperson 2-12 intact, No motor deficit, No sensory deficit, Normal speech Eye Opening: Spontaneous Motor: Obeys Commands Verbal: Oriented GCS Score: 15 - Psych Psych: Normal mood, Normal affect Results - Vitals Vitals: Vital Signs - 24 hr 08/28/17 09:24 Temperature 36.6 C Heart Rate 92 Respiratory 20 Rate Blood Pressure 127/82 H O2 Saturation 93 Oxygen O2 Source [Without Activity] 3L O2 via NC O2 Source Room air PD MEDICAL DECISION MAKING - ED course Complexity details: reviewed old records, reviewed results, re-evaluated patient , considered differential, d/w patient ED course: 67-year-old female with chronic pain and anxiety is on a taper of her Klonopin and has discontinued her Hydrocodone and she is now on some Suboxone. She is feeling shaky today and anxious and did not get her dose of Klonopin this morning. She is administered half a milligram of Klonopin and she does have an appointment to see her Suboxone prescriber this afternoon. - Sepsis Event Vital Signs: Vital Signs - 24 hr 08/28/17 09:24 Temperature 36.6 C Heart Rate 92 Respiratory 20 Rate Blood Pressure 127/82 H O2 Saturation 93 Oxygen O2 Source [Without Activity] 3L O2 via NC O2 Source Room air Departure - Departure Disposition: 01 Home, Self Care Clinical Impression: Anxiety Condition: Stable Instructions: Anxiety Disorder Follow-Up: Winter Rosado MD [Primary Care Provider] - Comments: Follow up with your suboxone prescriber this afternoon as planned.
[2017-08-28 10:34] LABS: GLUCOSE, URINE (UA) NEGATIVE (NEGATIVE); KETONES,URINE (UA) NEGATIVE (NEGATIVE); LEUKOCYTE ESTERASE, URINE NEGATIVE (NEGATIVE); NITRITE,URINE NEGATIVE (NEGATIVE); OCCULT BLOOD,URINE NEGATIVE (NEGATIVE); PROTEIN,URINE NEGATIVE (NEGATIVE); UROBILINOGEN,URINE 0.2 (NORMAL) E.U./dL (NORMAL)
[2017-08-28 10:51] LABS: BILIRUBIN,URINE NEGATIVE (NEGATIVE); CLARITY,URINE CLEAR (CLEAR); ICTOTEST,URINE NEGATIVE
[2017-08-28 11:06] VITALS: BP 124/74
== END 2017-08-28 11:07 | disposition home or self-care (01) ==
LOC: EDUNIT# → ED 09:21
DX: F41.9 Anxiety disorder, unspecified (principal); I10 Essential (primary) hypertension; Z79.899 Other long term (current) drug therapy
CPT/HCPCS: 81003; 99283; A9270; 81001; 87086